=== PATIENT | female | born 1955 | race Hispanic/Latino ===

== ENCOUNTER 2020-12-17 20:05 | Inpatient (IN) | payer OTHER ==
[2020-12-17] MEDS ORDERED: BENZONATATE 100 MG CAP PO PRN (21:48)
[2020-12-17] MEDS: FAMOTIDINE 20 MG TAB PO SCH (21:48)
[2020-12-17] MEDS ORDERED: MORPHINE 2 MG/ML SYR IV PRN (21:48)
[2020-12-17] MEDS: INSULIN -REGULAR HUMAN 50 UNIT/0.5 ML ML SQ SCH (21:48)
[2020-12-17] MEDS ORDERED: ONDANSETRON 4 MG/2 ML VIAL IV PRN (21:48)
--- NOTE | 2020-12-17 23:01 | P.HP ---
Certification for Inpatient Patient admitted to: Inpatient With expected LOS: >2 Midnights Patient will require the following post-hospital care: None Practitioner: I am a practitioner with admitting privileges, knowledge of patient current condition, hospital course, and medical plan of care. Services: Services provided to patient in accordance with Admission requirements found in Title 42 Section 412.3 of the Code of Federal Regulations Patient History Date of Service: 12/17/20 Reason for admission: covid pneumonia History of Present Illness: Ms. Newberry is a 65 yo F with history of CVA and brain aneurysm who presents with one week of cough and SOB. She tested positive for COVID this week and presented to [facility] initially for worsening symptoms. There she was found to be hypoxic and requiring admission so she was transferred her .She reports cough, SOB, [place], vomiting, night sweats, pleuritic pain, sore throat and lost of taste and smell. She is currently on nasal cannula in no apparent distress. Allergies diazepam [From Valium] Allergy (Severe, Verified 12/17/20 21:48) see comment morphine Allergy (Severe, Verified 12/17/20 21:48) see commet Home Medications: Amitriptyline HCl 75 mg PO BEDTIME 12/17/20 Aspirin [Adult Low Dose Aspirin EC] 81 mg PO DAILY 12/17/20 Atorvastatin Calcium [Lipitor] 40 mg PO BEDTIME 12/17/20 Citalopram [Celexa] 20 mg PO DAILY 12/17/20 Furosemide [Lasix] 20 mg PO DAILY 12/17/20 Gabapentin 300 mg PO TID 12/17/20 Magnesium Oxide [Mag 0X Tab] 400 mg PO DAILY 12/17/20 Omeprazole [Prilosec] 40 mg PO DAILY 12/17/20 Verapamil HCl [Calan] 80 mg PO DAILY 12/17/20 - Past Medical/Surgical History -: CVA, brain aneurysm -: HLD -: hysterectomy -: cholecystectomy - Family History Mother -: Diabetes Father -: Cancer Brother -: Diabetes, Cancer - Social History Smoking Status: Never smoker Alcohol use: No CD- Drugs: No Caffeine use: Yes Place of Residence: Home Review of Systems 10-point ROS is otherwise unremarkable General: Sweats Respiratory: Cough, Shortness of Breath, SOB with Excertion, Pleuritic Pain Gastrointestinal: Vomiting Physical Examination - Physical Exam General: Alert, In no apparent distress HEENT: Atraumatic, PERRLA, Mucous membr. moist/pink, EOMI, Sclerae nonicteric Neck: Supple, 2+ carotid pulse no bruit, No LAD, Without JVD or thyroid abnormality Respiratory: Normal air movement, Expiratory wheezes, Rhonchi/gurgles Cardiovascular: Regular rate/rhythm, Normal S1 S2 Gastrointestinal: Normal bowel sounds, No tenderness Musculoskeletal: No tenderness Integumentary: No rashes Neurological: Normal gait, Normal speech, Normal strength at 5/5 x4 extr, Normal tone, Normal affect Lymphatics: No axilla or inguinal lymphadenopathy Assessment and Plan - Problems (Diagnosis) (1) Pneumonia due to COVID-19 virus Current Visit: Yes Status: Acute (2) History of CVA (cerebrovascular accident) Current Visit: Yes Status: Chronic - Plan pulm consulted, RT consulted continue IV steroids, covid supplements, ivermectin sats for home O2, room air sats daily daily CRP, ferritin, and procal reconcile and continue home medications DVT ppx Discharge Plan: Home Plan to discharge in: 72 Hours - Advance Directives Does patient have a Living Will: Yes Does patient have a Durable POA for Healthcare: Yes - Code Status/Comfort Care Code Status Assessed: Yes (full code ) Critical Care: No Time Spent Managing Pts Care (In Minutes): 70
[2020-12-17] MEDS: METHYLPREDNISOLONE 125 MG INJ IV SCH (23:49)
[2020-12-17] MEDS: ATORVASTATIN 40 MG TAB PO SCH (23:50)
[2020-12-17] MEDS: AMITRIPTYLINE 25 MG TAB PO SCH (23:50)
[2020-12-17] MEDS: MELATONIN 5 MG TABLET PO PRN (23:50)
[2020-12-17] MEDS: GABAPENTIN 300 MG CAP PO SCH (23:50)
[2020-12-17] MEDS: ASCORBIC ACID 500 MG TABLET PO SCH (23:50)
[2020-12-18 05:23] LABS: Absolute Lymphocytes (CBC) 0.6 K/uL (0.7-4.9); Basophils % 0.1 % (0-1.3); Hematocrit 35.2 % (36.0-45.0); Lymphocytes % 6.8 % (15.3-44.8); MPV 8.9 fL (7.6-11.3); RBC Red Blood Cell Count 4.15 M/uL (3.86-4.86)
[2020-12-18 05:49] LABS: Albumin 2.5 g/dL (3.4-5.0); Bilirubin Total 0.2 mg/dL (0.2-1.0); C-Reactive Protein 63.5 mg/L (<3.00); Ferritin 658.7 ng/mL (8-388); Potassium 3.4 mmol/L (3.5-5.1); Protein, Total 7.3 g/dL (6.4-8.2)
[2020-12-18] MEDS ORDERED: POTASSIUM CL SA 10 MEQ TAB PO ONE ×2 (07:20→18:32)
[2020-12-18] MEDS: INSULIN -REGULAR HUMAN 50 UNIT/0.5 ML ML SQ SCH ×4 (07:30→20:20)
[2020-12-18] MEDS: METHYLPREDNISOLONE 125 MG INJ IV SCH ×2 (08:18→20:15)
[2020-12-18] MEDS: GABAPENTIN 300 MG CAP PO SCH ×3 (08:18→20:15)
[2020-12-18] MEDS: FAMOTIDINE 20 MG TAB PO SCH ×2 (08:19→20:15)
[2020-12-18] MEDS: ASPIRIN EC 81 MG TAB PO SCH (08:19)
[2020-12-18] MEDS: VITAMIN D 1000 UNIT TAB PO SCH (08:19)
[2020-12-18] MEDS: ASCORBIC ACID 500 MG TABLET PO SCH ×4 (08:19→20:15)
[2020-12-18] MEDS: THIAMINE HCL 100 MG TABLET PO SCH (08:19)
[2020-12-18] MEDS: ZINC SULFATE 220 MG CAP PO SCH (08:19)
[2020-12-18] MEDS: IVERMECTIN 3 MG TABLET PO SCH (08:20)
[2020-12-18 08:41] LABS: Blood Morphology Comment NOT SEEN (NOT SEEN); Platelet Estimate ADEQ; White Blood Cell Scan OK (OK)
--- NOTE | 2020-12-18 10:14 | RAD REPORT ---
EXAM DESCRIPTION: RAD - Chest Single View - 12/18/2020 7:03 am CLINICAL HISTORY: covid pneumonia Chest pain. COMPARISON: No comparisons FINDINGS: Portable technique limits examination quality. Moderately severe bilateral airspace opacities are present, greater on the right, most compatible wit h underlying COVID-19 infection. The heart is normal in size. No displaced fractures.
--- NOTE | 2020-12-18 10:43 | P.PN ---
Subjective Date of Service: 12/18/20 Chief Complaint: covid pneumonia Subjective: No new changes Review of Systems 10-point ROS is otherwise unremarkable Respiratory: SOB with Excertion Physical Examination - Vital Signs Temperature: 97.5 F Blood Pressure: 123/58 Pulse: 85 Respirations: 20 Pulse Ox (%): 94 - Physical Exam General: Alert, In no apparent distress HEENT: Atraumatic, PERRLA, EOMI Neck: Supple, JVD not distended Respiratory: Diminished Cardiovascular: Regular rate/rhythm, Normal S1 S2 Gastrointestinal: Normal bowel sounds, No tenderness Musculoskeletal: No tenderness Integumentary: No rashes Neurological: Normal speech, Normal tone, Normal affect Lymphatics: No axilla or inguinal lymphadenopathy - Studies Laboratory Data (last 24 hrs) 12/18/20 04:48: Sodium 142, Potassium 3.4 L, BUN 13, Creatinine 0.68, Glucose 154 H, Phosphorus 3.0, Magnesium 2.0, Total Bilirubin 0.2, AST 63 H, ALT 41, Alkaline Phosphatase 122 H 12/18/20 04:48: WBC 9.10, Hgb 11.8 L, Hct 35.2 L, Plt Count 184 Medications List Reviewed: Yes Assessment & Plan - Problems (Diagnosis) (1) Pneumonia due to COVID-19 virus Current Visit: Yes Status: Acute Plan: continue steroids and ivermectin. As well as the rest of the protochol. Will try weaning her down off oxygen. (2) History of CVA (cerebrovascular accident) Current Visit: Yes Status: Chronic Plan: No residual problems at this time. the patient speaks well. Seems to be in her right mind Discharge Plan: Home Plan to discharge in: Greater than 2 days - Code Status/Comfort Care Code Status Assessed: No Critical Care: No Time Spent Managing Pts Care (In Minutes): 20
--- NOTE | 2020-12-18 11:35 | P.CNS ---
Date of Consult: 12/18/20 Reason for Consult: Coronavirus pneumonia Chief Complaint: covid pneumonia History of Present Illness: Patient is 65 years of age patient is 65 years of age with history of stroke and brain aneurysm presented with 1 week history of cough shortness of breath di agnosed with coronavirus pneumonia currently stable reports having some pulmonary complaints on high flow nasal cannula h Allergies diazepam [From Valium] Allergy (Severe, Verified 12/17/20 21:48) see comment morphine Allergy (Severe, Verified 12/17/20 21:48) see commet Home Medications: Amitriptyline HCl 75 mg PO BEDTIME 12/17/20 Aspirin [Adult Low Dose Aspirin EC] 81 mg PO DAILY 12/17/20 Atorvastatin Calcium [Lipitor] 40 mg PO BEDTIME 12/17/20 Citalopram [Celexa] 20 mg PO DAILY 12/17/20 Furosemide [Lasix] 20 mg PO DAILY 12/17/20 Gabapentin 300 mg PO TID 12/17/20 Magnesium Oxide [Mag 0X Tab] 400 mg PO DAILY 12/17/20 Omeprazole [Prilosec] 40 mg PO DAILY 12/17/20 Verapamil HCl [Calan] 80 mg PO DAILY 12/17/20 - Past Medical/Surgical History -: CVA, brain aneurysm -: HLD -: hysterectomy -: cholecystectomy - Family History Mother Medical History: Diabetes Father Medical History: Cancer Brother Medical History: Diabetes, Cancer - Social History Alcohol use: No CD- Drugs: No Caffeine use: Yes Place of Residence: Home Review of Systems General: Weakness Respiratory: Cough, Shortness of Breath Physical Examination Temp Pulse Resp BP Pulse Ox 97.5 F 85 20 123/58 L 94 12/18/20 10:43 12/18/20 10:43 12/18/20 10:43 12/18/20 10:43 12/18/20 10:43 General: Alert, Cooperative Laboratory Data (last 24 hrs) 12/18/20 04:48: Sodium 142, Potassium 3.4 L, BUN 13, Creatinine 0.68, Glucose 154 H, Phosphorus 3.0, Magnesium 2.0, Total Bilirubin 0.2, AST 63 H, ALT 41, Alkaline Phosphatase 122 H 12/18/20 04:48: WBC 9.10, Hgb 11.8 L, Hct 35.2 L, Plt Count 184 - Problems (1) Pneumonia due to COVID-19 virus Current Visit: Yes Status: Acute Plan: Patient is 65 years of age patient is 65 years of age admitted with coronavirus pneumonia currently on high flow currently on high flow nasal cannula oxygen recheck CRP again patient may qualify for Barcitinib CT scan shows bilateral groundglass changes
[2020-12-18] MEDS: RIVAROXABAN 10 MG TABLET PO SCH (17:28)
[2020-12-18] MEDS: ATORVASTATIN 40 MG TAB PO SCH (20:14)
[2020-12-18] MEDS: AMITRIPTYLINE 25 MG TAB PO SCH (20:15)
[2020-12-18] MEDS: ACETAMINOPHEN 500 MG TAB PO PRN (21:28)
[2020-12-18] MEDS: MELATONIN 5 MG TABLET PO PRN (22:19)
[2020-12-19 04:52] LABS: C-Reactive Protein 48.8 mg/L (<3.00); Potassium 3.7 mmol/L (3.5-5.1)
[2020-12-19] MEDS ORDERED: POTASSIUM CL SA 10 MEQ TAB PO ONE (06:52)
[2020-12-19] MEDS: INSULIN -REGULAR HUMAN 50 UNIT/0.5 ML ML SQ SCH ×4 (07:30→20:42)
[2020-12-19] MEDS: ZINC SULFATE 220 MG CAP PO SCH (08:34)
[2020-12-19] MEDS: FAMOTIDINE 20 MG TAB PO SCH ×2 (08:34→20:35)
[2020-12-19] MEDS: ASPIRIN EC 81 MG TAB PO SCH (08:34)
[2020-12-19] MEDS: METHYLPREDNISOLONE 125 MG INJ IV SCH ×2 (08:35→20:34)
[2020-12-19] MEDS: GABAPENTIN 300 MG CAP PO SCH ×3 (08:35→20:34)
[2020-12-19] MEDS: VITAMIN D 1000 UNIT TAB PO SCH (08:35)
[2020-12-19] MEDS: ASCORBIC ACID 500 MG TABLET PO SCH ×4 (08:35→20:34)
[2020-12-19] MEDS: THIAMINE HCL 100 MG TABLET PO SCH (08:35)
--- NOTE | 2020-12-19 10:01 | P.PN ---
Subjective Date of Service: 12/19/20 Chief Complaint: covid pneumonia Subjective: No new changes Review of Systems Respiratory: Shortness of Breath Physical Examination - Vital Signs Temperature: 97.6 F Blood Pressure: 129/66 Pulse: 84 Respirations: 20 Pulse Ox (%): 96 - Physical Exam General: Alert, In no apparent distress HEENT: Atraumatic, PERRLA, EOMI Neck: Supple, JVD not distended Respiratory: Clear to auscultation bilaterally, Normal air movement Cardiovascular: Regular rate/rhythm, Normal S1 S2 Gastrointestinal: Normal bowel sounds, No tenderness Musculoskeletal: No tenderness Integumentary: No rashes Neurological: Normal speech, Normal tone, Normal affect Lymphatics: No axilla or inguinal lymphadenopathy - Studies Laboratory Data (last 24 hrs) 12/19/20 13:00: Potassium Cancelled 12/19/20 09:00: Potassium Cancelled 12/19/20 03:54: Potassium 3.7 12/18/20 15:57: Potassium 3.7 Medications List Reviewed: Yes Assessment & Plan - Problems (Diagnosis) (1) Pneumonia due to COVID-19 virus Current Visit: Yes Status: Acute Plan: continue steroids and ivermectin. As well as the rest of the protochol. Will try weaning her down off oxygen. 12/19 Contineu (2) History of CVA (cerebrovascular accident) Current Visit: Yes Status: Chronic Plan: No residual problems at this time. the patient speaks well. Seems to be in her right mind Discharge Plan: Home Plan to discharge in: Greater than 2 days - Code Status/Comfort Care Code Status Assessed: No Physician Review: Patient Assessed, Agree with Above Assessment and Plan Critical Care: No Time Spent Managing Pts Care (In Minutes): 20
[2020-12-19] MEDS: RIVAROXABAN 10 MG TABLET PO SCH (17:24)
[2020-12-19] MEDS: ACETAMINOPHEN 500 MG TAB PO PRN (17:27)
[2020-12-19] MEDS: ATORVASTATIN 40 MG TAB PO SCH (20:34)
[2020-12-19] MEDS: AMITRIPTYLINE 25 MG TAB PO SCH (20:35)
[2020-12-20] MEDS ORDERED: ZOLPIDEM TARTRATE 5 MG TABLET PO ONE (00:12)
--- NOTE | 2020-12-20 06:22 | P.PN ---
Subjective Date of Service: 12/20/20 Chief Complaint: covid pneumonia Subjective: Other (Patient reports some improvement. Currently on high flow at 100%.) Physical Examination - Vital Signs Temperature: 96.7 F Blood Pressure: 121/59 Pulse: 83 Respirations: 20 Pulse Ox (%): 91 - Studies Laboratory Data (last 24 hrs) 12/19/20 15:28: Potassium 4.0 12/19/20 13:00: Potassium Cancelled 12/19/20 09:40: Potassium 3.8 12/19/20 09:00: Potassium Cancelled Medications List Reviewed: Yes Assessment & Plan Discharge Plan: Home Plan to discharge in: Greater than 2 days Physician Review Additional Text: COVID: positive CXR: COMPARISON: No comparisons FINDINGS: Portable technique limits examination quality. Moderately severe bilateral airspace opacities are present, greater on the right, most compatible with underlying COVID-19 infection. The heart is normal in size. No displaced fractures. Physical Exam: GENERAL: The patient is a well-developed, well-nourished, in no apparent distress. Alert and oriented x3. VITAL SIGNS: Reviewed HEENT: Head is normocephalic and atraumatic. Extraocular muscles are intact. Pupils are equal, round, and reactive to light and accommodation. Nares appeared normal. Mouth is well hydrated and without lesions. Mucous membranes are moist. NECK: Supple. No carotid bruits. No lymphadenopathy or thyromegaly. LUNGS: Clear to auscultation. No crackles or wheezes are heard. HEART: Regular rate and rhythm, no appreciable gallops, rubs, murmurs or extra heart sounds ABDOMEN: Soft, nontender, and nondistended. Positive bowel sounds. No hepatosplenomegaly was noted. EXTREMITIES: Without any cyanosis, clubbing, rash, lesions or peripheral edema. NEUROLOGIC: The patient is oriented to person, place and time. Strength and sensation are grossly intact. Face is symmetric. SKIN: Normal color, turgor and temperature. No ulcerations or rashes noted. Impression: Acute respiratory failure secondary to bilateral Covid pneumonia Hypertension Hyperlipidemia Depression with anxiety Chronic pain GERD Plan: Acute respiratory failure secondary to bilateral Covid pneumonia: Patient remains on high flow 100%. Continue to wean off to maintain sats above 90%. Continue IV steroids and supplementation. Recheck chest x-ray tomorrow. We will continue to monitor CRP and ferritin. Continue with recommendations by pul monology. Hypertension: Continue with verapamil 80 mg daily. Hyperlipidemia: Continue with Lipitor 40 mg daily. Depression with anxiety: Continue with Celexa 20 mg daily. Chronic pain: Continue with gabapentin 300 mg 3 times a day and Elavil 75 mg at bedtime. GERD: Continue with Pepcid Code Status: Full Code DVT prophylaxis: Lovenox Advanced Care Planning-30 minutes: Plan of care for the patient's discharge was discussed in detail with the patient and family. Time Spent Managing Pts Care (In Minutes): 55
[2020-12-20] MEDS: INSULIN -REGULAR HUMAN 50 UNIT/0.5 ML ML SQ SCH ×4 (07:30→21:00)
[2020-12-20 07:44] LABS: Absolute Lymphocytes (CBC) 0.7 K/uL (0.7-4.9); Basophils % 0.1 % (0-1.3); Hematocrit 35.2 % (36.0-45.0); MPV 8.4 fL (7.6-11.3); RBC Red Blood Cell Count 4.26 M/uL (3.86-4.86)
[2020-12-20] MEDS: METHYLPREDNISOLONE 125 MG INJ IV SCH ×2 (07:51→20:24)
[2020-12-20] MEDS: FAMOTIDINE 20 MG TAB PO SCH ×2 (07:52→20:24)
[2020-12-20] MEDS: GABAPENTIN 300 MG CAP PO SCH ×3 (07:52→20:24)
[2020-12-20] MEDS: ASPIRIN EC 81 MG TAB PO SCH (07:52)
[2020-12-20] MEDS: THIAMINE HCL 100 MG TABLET PO SCH (07:52)
[2020-12-20] MEDS: VITAMIN D 1000 UNIT TAB PO SCH (07:53)
[2020-12-20] MEDS: ASCORBIC ACID 500 MG TABLET PO SCH ×4 (07:53→20:24)
[2020-12-20] MEDS: ZINC SULFATE 220 MG CAP PO SCH (07:53)
[2020-12-20] MEDS: IVERMECTIN 3 MG TABLET PO SCH (07:54)
[2020-12-20 08:00] LABS: ALT/SGPT 47 U/L (12-78); AST/SGOT 88 U/L (15-37); Albumin 2.7 g/dL (3.4-5.0); Alkaline Phosphatase 151 U/L (45-117); BUN Blood Urea Nitrogen 18 mg/dL (7-18); Bicarbonate 22 mmol/L (21-32); Bilirubin Total 0.7 mg/dL (0.2-1.0); Ferritin 697.3 ng/mL (8-388); Glucose Level 155 mg/dL (74-106); Potassium 4.2 mmol/L (3.5-5.1); Protein, Total 7.3 g/dL (6.4-8.2); Sodium Level 139 mmol/L (136-145)
[2020-12-20 08:20] LABS: Blood Morphology Comment NOT SEEN (NOT SEEN); Platelet Estimate ADEQ; White Blood Cell Scan OK (OK)
--- NOTE | 2020-12-20 11:28 | P.PN ---
Subjective Date of Service: 12/20/20 Chief Complaint: covid pneumonia NC still on highCon of O2. feeling better Review of Systems General: Weakness Respiratory: Shortness of Breath Physical Examination - Vital Signs Temperature: 97.2 F Blood Pressure: 162/72 Pulse: 75 Respirations: 30 Pulse Ox (%): 93 - Physical Exam General: Alert, In no apparent distress, Oriented x3, Cooperative - Studies Laboratory Data (last 24 hrs) 12/20/20 07:19: Sodium 139, Potassium 4.2, BUN 18, Creatinine 0.58, Glucose 155 H, Total Bilirubin 0.7, AST 88 H, ALT 47, Alkaline Phosphatase 151 H 12/20/20 07:19: WBC 13.40 H D, Hgb 11.9 L, Hct 35.2 L, Plt Count 265 D 12/19/20 15:28: Potassium 4.0 Medications List Reviewed: Yes Assessment & Plan - Problems (Diagnosis) (1) Pneumonia due to COVID-19 virus Current Visit: Yes Status: Acute Plan: Resp failure on high conc o O2/ feeling better/ Did not qualify for Barcitinib Physician Review: Patient Assessed, Agree with Above Assessment and Plan
[2020-12-20] MEDS: ENOXAPARIN 40 MG/0.4 ML SQ SCH (16:07)
[2020-12-20] MEDS: ALPRAZOLAM 0.25 MG TABLET PO PRN (17:41)
[2020-12-20] MEDS: ACETAMINOPHEN 500 MG TAB PO PRN (19:30)
[2020-12-20] MEDS: AMITRIPTYLINE 25 MG TAB PO SCH (20:24)
[2020-12-20] MEDS: ATORVASTATIN 40 MG TAB PO SCH (20:24)
[2020-12-20] MEDS ORDERED: AMITRIPTYLINE HCL 75 MG PO SCH (21:00)
[2020-12-21 04:13] LABS: Absolute Lymphocytes (CBC) 0.7 K/uL (0.7-4.9); Basophils % 0.2 % (0-1.3); Hematocrit 35.1 % (36.0-45.0); Lymphocytes % 5.8 % (15.3-44.8); MPV 8.6 fL (7.6-11.3); RBC Red Blood Cell Count 4.23 M/uL (3.86-4.86)
[2020-12-21 04:54] LABS: ALT/SGPT 43 U/L (12-78); AST/SGOT 61 U/L (15-37); Albumin 2.6 g/dL (3.4-5.0); Alkaline Phosphatase 147 U/L (45-117); BUN Blood Urea Nitrogen 21 mg/dL (7-18); Bicarbonate 21 mmol/L (21-32); Ferritin 665.1 ng/mL (8-388); Glucose Level 186 mg/dL (74-106); Magnesium 2.5 mg/dL (1.8-2.4); Potassium 4.4 mmol/L (3.5-5.1); Protein, Total 7.1 g/dL (6.4-8.2); Sodium Level 138 mmol/L (136-145)
[2020-12-21] MEDS: ALPRAZOLAM 0.25 MG TABLET PO PRN (05:15)
--- NOTE | 2020-12-21 06:20 | P.PN ---
Subjective Date of Service: 12/21/20 Chief Complaint: covid pneumonia Subjective: Other (Overall stable. Patient on high flow 100%) Physical Examination - Vital Signs Temperature: 96.9 F Blood Pressure: 120/57 Pulse: 81 Respirations: 18 Pulse Ox (%): 93 - Studies Laboratory Data (last 24 hrs) 12/21/20 03:53: Sodium 138, Potassium 4.4, BUN 21 H, Creatinine 0.57, Glucose 186 H, Magnesium 2.5 H D, Total Bilirubin 1.0, AST 61 H, ALT 43, Alkaline Phosphatase 147 H 12/21/20 03:53: WBC 12.10 H, Hgb 11.8 L, Hct 35.1 L, Plt Count 294 12/20/20 07:19: Sodium 139, Potassium 4.2, BUN 18, Creatinine 0.58, Glucose 155 H, Total Bilirubin 0.7, AST 88 H, ALT 47, Alkaline Phosphatase 151 H 12/20/20 07:19: WBC 13.40 H D, Hgb 11.9 L, Hct 35.2 L, Plt Count 265 D Medications List Reviewed: Yes Assessment & Plan Discharge Plan: Home Plan to discharge in: Greater than 2 days Physician Review Additional Text: COVID: positive CXR: COMPARISON: No comparisons FINDINGS: Portable technique limits examination quality. Moderately severe bilateral airspace opacities are present, greater on the right, most compatible with underlying COVID-19 infection. The heart is normal in size. No displaced fractures. Follow up CXR 12/21/2020: COMPARISON: Portable December 18 TECHNIQUE: AP portable chest image was obtained 12/21/2020 5:59 am . FINDINGS: There has been moderate improvement in the bilateral pneumonia pattern seen on the prior examination. There is significant interstitial and airspace opacification remaining. Heart and vasculature are normal. No measurable pleural effusion and no pneumothorax. No acute bony abnormality seen. No acute aortic findings suspected. IMPRESSION: Moderate improvement in the bilateral pneumonia pattern since December 18 Physical Exam: GENERAL: The patient is a well-developed, well-nourished, in no apparent distress. Alert and oriented x3. VITAL SIGNS: Reviewed HEENT: Neck supple LUNGS: Clear to auscultation. No crackles or wheezes are heard. Currently on high flow 100% HEART: Regular rate and rhythm, no appreciable gallops, rubs, murmurs or extra heart sounds ABDOMEN: Soft, nontender, and nondistended. Positive bowel sounds. No hepatosplenomegaly was noted. EXTREMITIES: Without any cyanosis, clubbing, rash, lesions or peripheral edema. NEUROLOGIC: The patient is oriented to person, place and time. Strength and sensation are grossly intact. Face is symmetric. SKIN: Normal color, turgor and temperature. No ulcerations or rashes noted. Impression: Acute respiratory failure secondary to bilateral Covid pneumonia Hypertension Hyperlipidemia Depression with anxiety Chronic pain GERD Plan: Acute respiratory failure secondary to bilateral Covid pneumonia: Patient remains on high flow 100%. Continue to wean off to maintain sats above 90%. Continue IV steroids and supplementation. X-ray shows improvement. Continue to monitor CRP and ferritin. Continue with recommendations by pulmonology. Hypertension: Continue with verapamil 80 mg daily. Hyperlipidemia: Continue with Lipitor 40 mg daily. Depression with anxiety: Continue with Celexa 20 mg daily. Chronic pain: Continue with gabapentin 300 mg 3 times a day and Elavil 75 mg at bedtime. GERD: Continue with Pepcid Code Status: Full Code DVT prophylaxis: Lovenox Advanced Care Planning-30 minutes: Will discuss with patient about the possibility of LTAC in the near future if her condition slowly improves Time Spent Managing Pts Care (In Minutes): 55
--- NOTE | 2020-12-21 06:58 | RAD REPORT ---
EXAM DESCRIPTION: RAD - Chest Single View - 12/21/2020 5:59 am CLINICAL HISTORY: penumonia COMPARISON: Portable December 18 TECHNIQUE: AP portable chest image was obtained 12/21/2020 5:59 am . FINDINGS: There has been moderate improvement in the bilateral pneumonia pattern seen on the prior e xamination. There is significant interstitial and airspace opacification remaining. Heart and vascula ture are normal. No measurable pleural effusion and no pneumothorax. No acute bony abnormality seen. No acute aortic findings suspected. IMPRESSION: Moderate improvement in the bilateral pneumonia pattern since December 18
[2020-12-21] MEDS: INSULIN -REGULAR HUMAN 50 UNIT/0.5 ML ML SQ SCH ×4 (07:24→20:36)
[2020-12-21] MEDS: GABAPENTIN 300 MG CAP PO SCH ×3 (08:44→20:35)
[2020-12-21] MEDS: ZINC SULFATE 220 MG CAP PO SCH (08:44)
[2020-12-21] MEDS: THIAMINE HCL 100 MG TABLET PO SCH (08:44)
[2020-12-21] MEDS: ASCORBIC ACID 500 MG TABLET PO SCH ×4 (08:44→20:35)
[2020-12-21] MEDS: METHYLPREDNISOLONE 125 MG INJ IV SCH ×2 (08:44→20:35)
[2020-12-21] MEDS: CITALOPRAM 10 MG TABLET PO SCH (08:45)
[2020-12-21] MEDS: VITAMIN D 1000 UNIT TAB PO SCH (08:45)
[2020-12-21] MEDS: VERAPAMIL HCL 80 MG TABLET PO SCH (08:45)
[2020-12-21] MEDS: FAMOTIDINE 20 MG TAB PO SCH ×2 (08:45→20:35)
[2020-12-21] MEDS: ASPIRIN EC 81 MG TAB PO SCH (08:45)
[2020-12-21] MEDS: MAGNESIUM OXIDE 400 MG TAB PO SCH (08:47)
[2020-12-21] MEDS ORDERED: HOME MED 1 EA UNK (Omeprazole [Prilosec] 40 MG Capsule.Dr) PO SCH (09:00)
[2020-12-21] MEDS ORDERED: PANTOPRAZOLE 40MG TABLET PO SCH (09:00)
[2020-12-21] MEDS: ENOXAPARIN 40 MG/0.4 ML SQ SCH (16:24)
[2020-12-21] MEDS: AMITRIPTYLINE 25 MG TAB PO SCH (20:35)
[2020-12-21] MEDS: ATORVASTATIN 40 MG TAB PO SCH (20:35)
[2020-12-22 04:22] LABS: Absolute Lymphocytes (CBC) 0.7 K/uL (0.7-4.9); Basophils % 0.3 % (0-1.3); Hematocrit 34.5 % (36.0-45.0); Lymphocytes % 5.4 % (15.3-44.8); MPV 8.4 fL (7.6-11.3); RBC Red Blood Cell Count 4.14 M/uL (3.86-4.86)
[2020-12-22 04:42] LABS: ALT/SGPT 43 U/L (12-78); AST/SGOT 44 U/L (15-37); Albumin 2.6 g/dL (3.4-5.0); Alkaline Phosphatase 142 U/L (45-117); BUN Blood Urea Nitrogen 21 mg/dL (7-18); Bicarbonate 21 mmol/L (21-32); Bilirubin Total 0.8 mg/dL (0.2-1.0); Ferritin 714.6 ng/mL (8-388); Glucose Level 185 mg/dL (74-106); Magnesium 2.4 mg/dL (1.8-2.4); Potassium 4.7 mmol/L (3.5-5.1); Sodium Level 137 mmol/L (136-145)
--- NOTE | 2020-12-22 06:14 | P.PN ---
Subjective Date of Service: 12/22/20 Chief Complaint: covid pneumonia Subjective: Doing well, Other (Patient remains on high flow at 100%) Physical Examination - Vital Signs Temperature: 96.1 F Blood Pressure: 95/51 Pulse: 76 Respirations: 18 Pulse Ox (%): 85 - Studies Laboratory Data (last 24 hrs) 12/22/20 03:58: Sodium 137, Potassium 4.7, BUN 21 H, Creatinine 0.60, Glucose 185 H, Magnesium 2.4, Total Bilirubin 0.8, AST 44 H, ALT 43, Alkaline Phosphatase 142 H 12/22/20 03:58: WBC 13.40 H, Hgb 11.7 L, Hct 34.5 L, Plt Count 359 D Medications List Reviewed: Yes Assessment & Plan Discharge Plan: LTAC Plan to discharge in: Greater than 2 days Physician Review Additional Text: COVID: positive CXR: COMPARISON: No comparisons FINDINGS: Portable technique limits examination quality. Moderately severe bilateral airspace opacities are present, greater on the right, most compatible with underlying COVID-19 infection. The heart is normal in size. No displaced fractures. Follow up CXR 12/21/2020: COMPARISON: Portable December 18 TECHNIQUE: AP portable chest image was obtained 12/21/2020 5:59 am . FINDINGS: There has been moderate improvement in the bilateral pneumonia pattern seen on the prior examination. There is significant interstitial and airspace opacification remaining. Heart and vasculature are normal. No measurable pleural effusion and no pneumothorax. No acute bony abnormality seen. No acute aortic findings suspected. IMPRESSION: Moderate improvement in the bilateral pneumonia pattern since December 18 Physical Exam: GENERAL: The patient is a well-developed, well-nourished, in no apparent distress. Alert and oriented x3. VITAL SIGNS: Reviewed HEENT: Neck supple LUNGS: Clear to auscultation. No crackles or wheezes are heard. Currently on high flow 100% HEART: Regular rate and rhythm, no appreciable gallops, rubs, murmurs or extra heart sounds ABDOMEN: Soft, nontender, and nondistended. Positive bowel sounds. No hepatosplenomegaly was noted. EXTREMITIES: Without any cyanosis, clubbing, rash, lesions or peripheral edema. NEUROLOGIC: The patient is oriented to person, place and time. Strength and sensation are grossly intact. Face is symmetric. SKIN: Normal color, turgor and temperature. No ulcerations or rashes noted. Impression: Acute respiratory failure secondary to bilateral Covid pneumonia Hypertension Hyperlipidemia Depression with anxiety Chronic pain GERD Plan: Acute respiratory failure secondary to bilateral Covid pneumonia: Patient remained stable on high flow. Patient remains on high flow 100%. Continue to wean off to maintain sats above 90%. Continue IV steroids and supplementation. X-ray shows improvement. Continue to monitor CRP and ferritin. Continue with recommendations by pulmonology. Hypertension: Blood pressures have been low. Will hold verapamil at this time. May need to restart if blood pressure remains elevated. Hyperlipidemia: Continue with Lipitor 40 mg daily. Depression with anxiety: Continue with Celexa 20 mg daily and Xanax as needed. Chronic pain: Continue with gabapentin 300 mg 3 times a day and Elavil 75 mg at bedtime. GERD: Continue with Protonix Code Status: Full Code DVT prophylaxis: Lovenox Advanced Care Planning-30 minutes: Spoke at length with patient about the possibility of transferring to long-term acute facility to continue care. Patient in agreement. Will discuss with social work job titles to help arrange for this. Time Spent Managing Pts Care (In Minutes): 55
[2020-12-22] MEDS: INSULIN -REGULAR HUMAN 50 UNIT/0.5 ML ML SQ SCH ×4 (07:30→20:16)
[2020-12-22] MEDS: ASPIRIN EC 81 MG TAB PO SCH (08:56)
[2020-12-22] MEDS: FAMOTIDINE 20 MG TAB PO SCH (08:56)
[2020-12-22] MEDS: VITAMIN D 1000 UNIT TAB PO SCH (08:56)
[2020-12-22] MEDS: METHYLPREDNISOLONE 125 MG INJ IV SCH ×2 (08:57→20:14)
[2020-12-22] MEDS: ASCORBIC ACID 500 MG TABLET PO SCH (08:57)
[2020-12-22] MEDS: GABAPENTIN 300 MG CAP PO SCH ×3 (08:57→20:14)
[2020-12-22] MEDS: THIAMINE HCL 100 MG TABLET PO SCH (08:57)
[2020-12-22] MEDS: ZINC SULFATE 220 MG CAP PO SCH (08:57)
[2020-12-22] MEDS: CITALOPRAM 10 MG TABLET PO SCH (08:57)
[2020-12-22] MEDS: MAGNESIUM OXIDE 400 MG TAB PO SCH (08:58)
[2020-12-22] MEDS: VERAPAMIL HCL 80 MG TABLET PO SCH (09:00)
[2020-12-22] MEDS: PANTOPRAZOLE 40MG TABLET PO SCH (10:43)
--- NOTE | 2020-12-22 11:46 | P.PN ---
Subjective Date of Service: 12/22/20 Chief Complaint: covid pneumonia NC on high conc of Fio2 Review of Systems Respiratory: Shortness of Breath Physical Examination - Vital Signs Temperature: 97.6 F Blood Pressure: 102/68 Pulse: 80 Respirations: 26 Pulse Ox (%): 93 - Physical Exam General: Alert, Oriented x3, Cooperative - Studies Laboratory Data (last 24 hrs) 12/22/20 03:58: Sodium 137, Potassium 4.7, BUN 21 H, Creatinine 0.60, Glucose 185 H, Magnesium 2.4, Total Bilirubin 0.8, AST 44 H, ALT 43, Alkaline Phosphatase 142 H 12/22/20 03:58: WBC 13.40 H, Hgb 11.7 L, Hct 34.5 L, Plt Count 359 D Medications List Reviewed: Yes Assessment & Plan - Problems (Diagnosis) (1) Pneumonia due to COVID-19 virus Current Visit: Yes Status: Acute Plan: Resp failure CXRY improvement. Willnot qualify for Barctinib/ Labs and meds reviewed Physician Review: Patient Assessed, Agree with Above Assessment and Plan
[2020-12-22] MEDS: ENOXAPARIN 40 MG/0.4 ML SQ SCH (17:00)
[2020-12-22] MEDS ORDERED: RIVAROXABAN 20 MG TABLET PO SCH (17:00)
[2020-12-22] MEDS: AMITRIPTYLINE 25 MG TAB PO SCH (20:14)
[2020-12-22] MEDS: ATORVASTATIN 40 MG TAB PO SCH (20:14)
[2020-12-22] MEDS: MELATONIN 5 MG TABLET PO PRN (20:14)
[2020-12-23] MEDS: ALPRAZOLAM 0.25 MG TABLET PO PRN (00:06)
[2020-12-23 05:18] LABS: Absolute Lymphocytes (CBC) 0.8 K/uL (0.7-4.9); Basophils % 0.2 % (0-1.3); Hematocrit 35.2 % (36.0-45.0); MPV 8.2 fL (7.6-11.3)
[2020-12-23 05:44] LABS: ALT/SGPT 37 U/L (12-78); AST/SGOT 40 U/L (15-37); Albumin 2.6 g/dL (3.4-5.0); Alkaline Phosphatase 142 U/L (45-117); BUN Blood Urea Nitrogen 24 mg/dL (7-18); Bicarbonate 21 mmol/L (21-32); Bilirubin Total 0.7 mg/dL (0.2-1.0); Ferritin 776.6 ng/mL (8-388); Glucose Level 181 mg/dL (74-106); Magnesium 2.5 mg/dL (1.8-2.4); Potassium 4.6 mmol/L (3.5-5.1); Protein, Total 7.1 g/dL (6.4-8.2); Sodium Level 136 mmol/L (136-145)
--- NOTE | 2020-12-23 06:09 | P.PN ---
Subjective Date of Service: 12/23/20 Chief Complaint: covid pneumonia Subjective: Other (Patient required BiPAP overnight.) Physical Examination - Vital Signs Temperature: 96.4 F Blood Pressure: 113/59 Pulse: 76 Respirations: 24 Pulse Ox (%): 92 - Studies Laboratory Data (last 24 hrs) 12/23/20 04:44: Sodium 136, Potassium 4.6, BUN 24 H, Creatinine 0.58, Glucose 181 H, Magnesium 2.5 H, Total Bilirubin 0.7, AST 40 H, ALT 37, Alkaline Phosphatase 142 H 12/23/20 04:44: WBC 16.50 H D, Hgb 11.9 L, Hct 35.2 L, Plt Count 413 H Medications List Reviewed: Yes Assessment & Plan Discharge Plan: LTAC Plan to discharge in: Greater than 2 days Physician Review Additional Text: COVID: positive CXR: COMPARISON: No comparisons FINDINGS: Portable technique limits examination quality. Moderately severe bilateral airspace opacities are present, greater on the right, most compatible with underlying COVID-19 infection. The heart is normal in size. No displaced fractures. Follow up CXR 12/21/2020: COMPARISON: Portable December 18 TECHNIQUE: AP portable chest image was obtained 12/21/2020 5:59 am . FINDINGS: There has been moderate improvement in the bilateral pneumonia pattern seen on the prior examination. There is significant interstitial and airspace opacification remaining. Heart and vasculature are normal. No measurable pleural effusion and no pneumothorax. No acute bony abnormality seen. No acute aortic findings suspected. IMPRESSION: Moderate improvement in the bilateral pneumonia pattern since December 18 Physical Exam: GENERAL: The patient is a well-developed, well-nourished, in no apparent distress. Alert and oriented x3. VITAL SIGNS: Reviewed HEENT: Neck supple LUNGS: Patient on BiPAP HEART: Regular rate and rhythm, no appreciable gallops, rubs, murmurs or extra heart sounds ABDOMEN: Soft, nontender, and nondistended. Positive bowel sounds. No hepatosplenomegaly was noted. EXTREMITIES: Without any cyanosis, clubbing, rash, lesions or peripheral edema. NEUROLOGIC: The patient is oriented to person, place and time. Strength and sensation are grossly intact. Face is symmetric. SKIN: Normal color, turgor and temperature. No ulcerations or rashes noted. Impression: Acute respiratory failure secondary to bilateral Covid pneumonia Hypertension Hyperlipidemia Depression with anxiety Chronic pain GERD Plan: Acute respiratory failure secondary to bilateral Covid pneumonia: Patient required BiPAP overnight. Continue to wean off oxygen Continue IV steroids and supplementation. Will recheck chest x-ray tomorrow. Continue to monitor CRP and ferritin. Continue with recommendations by pulmonology. Leukocytosis noted. Will start Rocephin and Diflucan due to risk of opportunistic infection. Hypertension: Blood pressures have been low. Verapamil has been discontinued. May need to restart if blood pressure remains elevated. Hyperlipidemia: Continue with Lipitor 40 mg daily. Depression with anxiety: Continue with Celexa 20 mg daily and Xanax as needed. Chronic pain: Continue with gabapentin 300 mg 3 times a day and Elavil 75 mg at bedtime. GERD: Continue with Protonix Code Status: Full Code DVT prophylaxis: Lovenox Advanced Care Planning-30 minutes: Continue to pursue LTAC Time Spent Managing Pts Care (In Minutes): 55
[2020-12-23] MEDS: PANTOPRAZOLE 40MG TABLET PO SCH (06:20)
[2020-12-23] MEDS: INSULIN -REGULAR HUMAN 50 UNIT/0.5 ML ML SQ SCH ×4 (07:30→21:00)
[2020-12-23] MEDS: METHYLPREDNISOLONE 125 MG INJ IV SCH ×2 (08:16→21:04)
[2020-12-23] MEDS: GABAPENTIN 300 MG CAP PO SCH ×3 (08:16→21:04)
[2020-12-23] MEDS: CITALOPRAM 10 MG TABLET PO SCH (08:16)
[2020-12-23] MEDS: VITAMIN D 1000 UNIT TAB PO SCH (08:16)
[2020-12-23] MEDS: THIAMINE HCL 100 MG TABLET PO SCH (08:16)
[2020-12-23] MEDS: ASPIRIN EC 81 MG TAB PO SCH (08:16)
[2020-12-23] MEDS: MAGNESIUM OXIDE 400 MG TAB PO SCH (08:17)
[2020-12-23] MEDS: CEFTRIAXONE 1 GM/NS 50 ML 1 GM/50 ML BAG IV SCH (15:33)
[2020-12-23] MEDS: FLUCONAZOLE 100 MG TAB PO SCH (15:33)
[2020-12-23] MEDS: ENOXAPARIN 40 MG/0.4 ML SQ SCH (17:21)
[2020-12-23] MEDS: ATORVASTATIN 40 MG TAB PO SCH (21:05)
[2020-12-23] MEDS: AMITRIPTYLINE 25 MG TAB PO SCH (21:05)
[2020-12-23] MEDS: ACETAMINOPHEN 500 MG TAB PO PRN (21:06)
[2020-12-24] MEDS: PANTOPRAZOLE 40MG TABLET PO SCH (05:50)
[2020-12-24 06:21] LABS: Absolute Lymphocytes (CBC) 0.5 K/uL (0.7-4.9); Hematocrit 33.7 % (36.0-45.0); Lymphocytes % 3.7 % (15.3-44.8); MPV 8.4 fL (7.6-11.3); RBC Red Blood Cell Count 4.02 M/uL (3.86-4.86)
--- NOTE | 2020-12-24 06:30 | P.PN ---
Subjective Date of Service: 12/24/20 Chief Complaint: covid pneumonia Subjective: Other (Patient stable on high flow at 100%) Physical Examination - Vital Signs Temperature: 98.2 F Blood Pressure: 107/58 Pulse: 86 Respirations: 19 Pulse Ox (%): 95 - Studies Laboratory Data (last 24 hrs) 12/24/20 05:58: WBC 14.70 H, Hgb 11.4 L, Hct 33.7 L, Plt Count 464 H Medications List Reviewed: Yes Assessment & Plan Discharge Plan: LTAC Plan to discharge in: Greater than 2 days Physician Review Additional Text: COVID: positive CXR: COMPARISON: No comparisons FINDINGS: Portable technique limits examination quality. Moderately severe bilateral airspace opacities are present, greater on the right, most compatible with underlying COVID-19 infection. The heart is normal in size. No displaced fractures. Follow up CXR 12/21/2020: COMPARISON: Portable December 18 TECHNIQUE: AP portable chest image was obtained 12/21/2020 5:59 am . FINDINGS: There has been moderate improvement in the bilateral pneumonia pattern seen on the prior examination. There is significant interstitial and airspace opacification remaining. Heart and vasculature are normal. No measurable pleural effusion and no pneumothorax. No acute bony abnormality seen. No acute aortic findings suspected. IMPRESSION: Moderate improvement in the bilateral pneumonia pattern since December 18 Physical Exam: GENERAL: The patient is a well-developed, well-nourished, in no apparent distress. Alert and oriented x3. VITAL SIGNS: Reviewed HEENT: Neck supple LUNGS: Patient on high flow at 100% with nonrebreather HEART: Regular rate and rhythm, no appreciable gallops, rubs, murmurs or extra heart sounds ABDOMEN: Soft, nontender, and nondistended. Positive bowel sounds. No hepatosplenomegaly was noted. EXTREMITIES: Without any cyanosis, clubbing, rash, lesions or peripheral edema. NEUROLOGIC: The patient is oriented to person, place and time. Strength and sensation are grossly intact. Face is symmetric. SKIN: Normal color, turgor and temperature. No ulcerations or rashes noted. Impression: Acute respiratory failure secondary to bilateral Covid pneumonia Hypertension Hyperlipidemia Depression with anxiety Chronic pain GERD Plan: Acute respiratory failure secondary to bilateral Covid pneumonia: Patient now on high flow at high percent with nonrebreather. Pulmonology recommends baricitinib. This to be started. Continue IV steroids and supplementation. Continue Rocephin and Diflucan due to leukocytosis. Will monitor closely. Will monitor CRP and ferritin. Will monitor liver function tests on baricitinib. Continue to wean off oxygen. Pulmonology change Lovenox to Xarelto. Hypertension: Blood pressure stable. Verapamil has been discontinued. Hyperlipidemia: Continue with Lipitor 40 mg daily. Depression with anxiety: Continue with Celexa 20 mg daily and Xanax as needed. Chronic pain: Continue with gabapentin 300 mg 3 times a day and Elavil 75 mg at bedtime. GERD: Continue with Protonix Code Status: Full Code DVT prophylaxis: Xarelto Advanced Care Planning-30 minutes: Continue to pursue LTAC Time Spent Managing Pts Care (In Minutes): 55
[2020-12-24 06:55] LABS: ALT/SGPT 29 U/L (12-78); AST/SGOT 28 U/L (15-37); Albumin 2.5 g/dL (3.4-5.0); Alkaline Phosphatase 130 U/L (45-117); BUN Blood Urea Nitrogen 23 mg/dL (7-18); Bicarbonate 23 mmol/L (21-32); Bilirubin Total 0.6 mg/dL (0.2-1.0); Ferritin 791.8 ng/mL (8-388); Glucose Level 191 mg/dL (74-106); Magnesium 2.6 mg/dL (1.8-2.4); Potassium 4.9 mmol/L (3.5-5.1); Protein, Total 7.3 g/dL (6.4-8.2); Sodium Level 137 mmol/L (136-145)
--- NOTE | 2020-12-24 07:17 | RAD REPORT ---
EXAM DESCRIPTION: RAD - Chest Single View - 12/24/2020 6:41 am CLINICAL HISTORY: Follow-up Covid COMPARISON: Chest Single View dated 12/21/2020; Chest Single View dated 12/18/2020 FINDINGS: Lines: None. Lungs: Widespread bilateral airspace disease with areas of consolidation at the left lung that appear s marginally worsened compared with 12/21/2020 though this may be more technique related. Pleural: No significant pleural effusions or pneumothorax. Cardiac: The heart size is within normal limits. Bones: No acute fractures. Other: IMPRESSION: Widespread airspace disease with similar to marginally worsened aeration of the left cornelia g base. Overall, the findings have improved since the original chest radiograph from 12/18/2020 .
[2020-12-24] MEDS: INSULIN -REGULAR HUMAN 50 UNIT/0.5 ML ML SQ SCH ×4 (07:30→20:41)
[2020-12-24 08:07] LABS: Blood Morphology Comment NOT SEEN (NOT SEEN); Platelet Estimate INCR
[2020-12-24] MEDS: MAGNESIUM OXIDE 400 MG TAB PO SCH (09:00)
[2020-12-24] MEDS: VITAMIN D 1000 UNIT TAB PO SCH (09:41)
[2020-12-24] MEDS: THIAMINE HCL 100 MG TABLET PO SCH (09:41)
[2020-12-24] MEDS: ASPIRIN EC 81 MG TAB PO SCH (09:41)
[2020-12-24] MEDS: CITALOPRAM 10 MG TABLET PO SCH (09:41)
[2020-12-24] MEDS: FLUCONAZOLE 100 MG TAB PO SCH (09:42)
[2020-12-24] MEDS: GABAPENTIN 300 MG CAP PO SCH ×3 (09:42→20:40)
[2020-12-24] MEDS: METHYLPREDNISOLONE 125 MG INJ IV SCH ×2 (09:42→20:41)
[2020-12-24] MEDS: CEFTRIAXONE 1 GM/NS 50 ML 1 GM/50 ML BAG IV SCH (09:43)
[2020-12-24] MEDS: ALPRAZOLAM 0.25 MG TABLET PO PRN (12:02)
[2020-12-24] MEDS ORDERED: FUROSEMIDE 20 MG/ 2ML VIAL IV ONE (13:21)
--- NOTE | 2020-12-24 13:22 | P.PN ---
Subjective Date of Service: 12/24/20 Chief Complaint: covid pneumonia NC still very hypoxic CXRY NC Review of Systems General: Weakness Respiratory: Shortness of Breath Physical Examination - Vital Signs Temperature: 97.9 F Blood Pressure: 117/58 Pulse: 93 Respirations: 20 Pulse Ox (%): 95 - Physical Exam General: Alert, Oriented x3, Moderate distress - Studies Laboratory Data (last 24 hrs) 12/24/20 05:58: Sodium 137, Potassium 4.9, BUN 23 H, Creatinine 0.55, Glucose 191 H, Magnesium 2.6 H, Total Bilirubin 0.6, AST 28, ALT 29, Alkaline Phosphatase 130 H 12/24/20 05:58: WBC 14.70 H, Hgb 11.4 L, Hct 33.7 L, Plt Count 464 H Medications List Reviewed: Yes Assessment & Plan - Problems (Diagnosis) (1) Pneumonia due to COVID-19 virus Current Visit: Yes Status: Acute Plan: Resp failure from Severe COVID penumonia. NC very hypoxic/ CRP now 110 , CXRY NC, Start on Barcitinib/ Full anticoagualtion Physician Review: Patient Assessed, Agree with Above Assessment and Plan
[2020-12-24] MEDS: BARICITINIB 2 MG TABLET PO SCH (14:12)
[2020-12-24] MEDS: RIVAROXABAN 10 MG TABLET PO SCH (17:32)
[2020-12-24] MEDS: MELATONIN 5 MG TABLET PO PRN (20:40)
[2020-12-24] MEDS: AMITRIPTYLINE 25 MG TAB PO SCH (20:40)
[2020-12-24] MEDS: ATORVASTATIN 40 MG TAB PO SCH (20:40)
[2020-12-25] MEDS: ALPRAZOLAM 0.25 MG TABLET PO PRN (00:02)
[2020-12-25] MEDS: PANTOPRAZOLE 40MG TABLET PO SCH (06:04)
--- NOTE | 2020-12-25 06:12 | P.PN ---
Subjective Date of Service: 12/25/20 Chief Complaint: covid pneumonia Subjective: Other (Patient overall stable. Patient in better spirits today. Currently on BiPAP) Physical Examination - Vital Signs Temperature: 97.8 F Blood Pressure: 128/57 Pulse: 62 Respirations: 16 Pulse Ox (%): 97 - Studies Laboratory Data (last 24 hrs) 12/24/20 05:58: Sodium 137, Potassium 4.9, BUN 23 H, Creatinine 0.55, Glucose 191 H, Magnesium 2.6 H, Total Bilirubin 0.6, AST 28, ALT 29, Alkaline Phosphatase 130 H 12/24/20 05:58: WBC 14.70 H, Hgb 11.4 L, Hct 33.7 L, Plt Count 464 H Medications List Reviewed: Yes Assessment & Plan Discharge Plan: LTAC Plan to discharge in: Greater than 2 days Physician Review Additional Text: COVID: positive CXR: COMPARISON: No comparisons FINDINGS: Portable technique limits examination quality. Moderately severe bilateral airspace opacities are present, greater on the right , most compatible with underlying COVID-19 infection. The heart is normal in size. No displaced fractures. Follow up CXR 12/24/2020: COMPARISON: Chest Single View dated 12/21/2020; Chest Single View dated 12/18/2020 FINDINGS: Lines: None. Lungs: Widespread bilateral airspace disease with areas of consolidation at the left lung that appears marginally worsened compared with 12/21/2020 though this may be more technique related. Pleural: No significant pleural effusions or pneumothorax. Cardiac: The heart size is within normal limits. Bones: No acute fractures. IMPRESSION: Widespread airspace disease with similar to marginally worsened aeration of the left lung base. Overall, the findings have improved since the original chest radiograph from 12/18/2020 . Physical Exam: GENERAL: Patient in better spirits. Patient does not appear labored. VITAL SIGNS: Reviewed HEENT: Neck supple LUNGS: Currently on BiPAP at 90%. HEART: Regular rate and rhythm, no appreciable gallops, rubs, murmurs or extra heart sounds ABDOMEN: Soft, nontender, and nondistended. Positive bowel sounds. No hepatosplenomegaly was noted. EXTREMITIES: Without any cyanosis, clubbing, rash, lesions or peripheral edema. NEUROLOGIC: The patient is oriented to person, place and time. Strength and sensation are grossly intact. Face is symmetric. SKIN: Normal color, turgor and temperature. No ulcerations or rashes noted. Impression: Acute respiratory failure secondary to bilateral Covid pneumonia Hypertension Hyperlipidemia Depression with anxiety Chronic pain GERD Plan: Acute respiratory failure secondary to bilateral Covid pneumonia: Patient remains stable at this time. Currently on BiPAP at 100%. Patient continues with IV steroid and baricitinib. Continue to monitor CRP and ferritin. CRP improved since yesterday. Continue Rocephin and Diflucan as well. Encourage incentive spirometer. Continue to wean off to maintain sats above 90%. Continue with pulmonology recommendations. Hypertension: Blood pressure stable. Verapamil has been discontinued. Hyperlipidemia: Continue with Lipitor 40 mg daily. Depression with anxiety: Continue with Celexa 20 mg daily and Xanax as needed. Chronic pain: Continue with gabapentin 300 mg 3 times a day and Elavil 75 mg at bedtime. GERD: Continue with Protonix Code Status: Full Code DVT prophylaxis: Xarelto Advanced Care Planning-30 minutes: Continue to pursue LTAC. Plan of care discussed with son. Time Spent Managing Pts Care (In Minutes): 55
[2020-12-25] MEDS: INSULIN -REGULAR HUMAN 50 UNIT/0.5 ML ML SQ SCH ×4 (07:30→20:29)
[2020-12-25 07:46] LABS: Absolute Lymphocytes (CBC) 0.8 K/uL (0.7-4.9); Hematocrit 34.1 % (36.0-45.0); Lymphocytes % 5.5 % (15.3-44.8); RBC Red Blood Cell Count 4.05 M/uL (3.86-4.86)
[2020-12-25 08:06] LABS: ALT/SGPT 27 U/L (12-78); AST/SGOT 25 U/L (15-37); Albumin 2.5 g/dL (3.4-5.0); Alkaline Phosphatase 126 U/L (45-117); BUN Blood Urea Nitrogen 28 mg/dL (7-18); Bicarbonate 27 mmol/L (21-32); Bilirubin Total 0.4 mg/dL (0.2-1.0); Glucose Level 166 mg/dL (74-106); Magnesium 2.7 mg/dL (1.8-2.4); Potassium 4.7 mmol/L (3.5-5.1); Protein, Total 7.5 g/dL (6.4-8.2); Sodium Level 138 mmol/L (136-145)
[2020-12-25] MEDS: CEFTRIAXONE 1 GM/NS 50 ML 1 GM/50 ML BAG IV SCH (08:07)
[2020-12-25] MEDS: METHYLPREDNISOLONE 125 MG INJ IV SCH ×2 (08:08→20:24)
[2020-12-25] MEDS: VITAMIN D 1000 UNIT TAB PO SCH (08:09)
[2020-12-25] MEDS: CITALOPRAM 10 MG TABLET PO SCH (08:09)
[2020-12-25] MEDS: THIAMINE HCL 100 MG TABLET PO SCH (08:10)
[2020-12-25] MEDS: ASPIRIN EC 81 MG TAB PO SCH (08:10)
[2020-12-25] MEDS: MAGNESIUM OXIDE 400 MG TAB PO SCH (09:00)
[2020-12-25] MEDS: BARICITINIB 2 MG TABLET PO SCH (09:00)
[2020-12-25] MEDS: GABAPENTIN 300 MG CAP PO SCH ×3 (09:00→20:23)
[2020-12-25] MEDS: FLUCONAZOLE 100 MG TAB PO SCH (09:00)
[2020-12-25] MEDS: RIVAROXABAN 10 MG TABLET PO SCH (17:06)
[2020-12-25] MEDS: ATORVASTATIN 40 MG TAB PO SCH (20:23)
[2020-12-25] MEDS: AMITRIPTYLINE 25 MG TAB PO SCH (20:24)
[2020-12-26] MEDS: PANTOPRAZOLE 40MG TABLET PO SCH (06:11)
--- NOTE | 2020-12-26 06:19 | P.PN ---
Subjective Date of Service: 12/26/20 Chief Complaint: covid pneumonia Subjective: Other (Overall stable on high flow at 100%. Patient in better spirit) Physical Examination - Vital Signs Temperature: 97.1 F Blood Pressure: 124/59 Pulse: 84 Respirations: 17 Pulse Ox (%): 87 - Studies Laboratory Data (last 24 hrs) 12/25/20 07:34: Sodium 138, Potassium 4.7, BUN 28 H, Creatinine 0.58, Glucose 166 H, Magnesium 2.7 H, Total Bilirubin 0.4, AST 25, ALT 27, Alkaline Phosphatase 126 H 12/25/20 07:34: WBC 13.70 H, Hgb 11.3 L, Hct 34.1 L, Plt Count 510 H Medications List Reviewed: Yes Assessment & Plan Discharge Plan: LTAC Plan to discharge in: Greater than 2 days Physician Review Additional Text: COVID: positive CXR: COMPARISON: No comparisons FINDINGS: Portable technique limits examination quality. Moderately severe bilateral airspace opacities are present, greater on the right, most compatible with underlying COVID-19 infection. The heart is normal in size. No displaced fractures. Follow up CXR 12/24/2020: COMPARISON: Chest Single View dated 12/21/2020; Chest Single View dated 12/18/2020 FINDINGS: Lines: None. Lungs: Widespread bilateral airspace disease with areas of consolidation at the left lung that appears marginally worsened compared with 12/21/2020 though this may be more technique related. Pleural: No significant pleural effusions or pneumothorax. Cardiac: The heart size is within normal limits. Bones: No acute fractures. IMPRESSION: Widespread airspace disease with similar to marginally worsened aeration of the left lung base. Overall, the findings have improved since the original chest radiograph from 12/18/2020 . Physical Exam: GENERAL: Patient in better spirits. Patient does not appear labored. VITAL SIGNS: Reviewed HEENT: Neck supple LUNGS: Currently on BiPAP at 100%. HEART: Regular rate and rhythm, no appreciable gallops, rubs, murmurs or extra heart sounds ABDOMEN: Soft, nontender, and nondistended. Positive bowel sounds. No hepatosplenomegaly was noted. EXTREMITIES: Without any cyanosis, clubbing, rash, lesions or peripheral edema. NEUROLOGIC: The patient is oriented to person, place and time. Strength and sensation are grossly intact. Face is symmetric. SKIN: Normal color, turgor and temperature. No ulcerations or rashes noted. Impression: Acute respiratory failure secondary to bilateral Covid pneumonia Hypertension Hyperlipidemia Depression with anxiety Chronic pain GERD Plan: Acute respiratory failure secondary to bilateral Covid pneumonia: Patient remained stable. Currently on high flow at 100%. Intermittent with BiPAP. Continue IV steroid and baricitinib. Continue to monitor CRP and ferritin. Family has been visiting to help with her spirit. Continue Ceftin and Diflucan. Lasix given today by pulmonology. Encourage incentive spirometer. Continue to wean off to maintain sats above 90%. Continue with pulmonology recommendations. Awaiting approval for LTAC. I will turn the service over to the hospitalist team tomorrow. I will go plan of care with him. Hypertension: Blood pressure stable. Verapamil has been discontinued. If blood pressure is elevated may need to restart verapamil Hyperlipidemia: Continue with Lipitor 40 mg daily. Depression with anxiety: Continue with Celexa 20 mg daily and Xanax as needed. Chronic pain: Continue with gabapentin 300 mg 3 times a day and Elavil 75 mg at bedtime. GERD: Continue with Protonix Code Status: Full Code DVT prophylaxis: Xarelto Advanced Care Planning-30 minutes: Continue to pursue LTAC. Plan of care discussed with son. Time Spent Managing Pts Care (In Minutes): 55
[2020-12-26 06:25] LABS: Absolute Lymphocytes (CBC) 0.7 K/uL (0.7-4.9); Basophils % 0.1 % (0-1.3); Hematocrit 32.7 % (36.0-45.0); Lymphocytes % 4.2 % (15.3-44.8); MPV 8.5 fL (7.6-11.3); RBC Red Blood Cell Count 3.91 M/uL (3.86-4.86)
[2020-12-26 07:03] LABS: ALT/SGPT 28 U/L (12-78); AST/SGOT 22 U/L (15-37); Albumin 2.4 g/dL (3.4-5.0); Alkaline Phosphatase 119 U/L (45-117); BUN Blood Urea Nitrogen 28 mg/dL (7-18); Bicarbonate 22 mmol/L (21-32); Bilirubin Total 0.3 mg/dL (0.2-1.0); Ferritin 967.8 ng/mL (8-388); Glucose Level 167 mg/dL (74-106); Magnesium 2.5 mg/dL (1.8-2.4); Potassium 4.4 mmol/L (3.5-5.1); Protein, Total 7.3 g/dL (6.4-8.2); Sodium Level 138 mmol/L (136-145)
[2020-12-26] MEDS: INSULIN -REGULAR HUMAN 50 UNIT/0.5 ML ML SQ SCH ×4 (07:30→20:34)
[2020-12-26] MEDS: GABAPENTIN 300 MG CAP PO SCH ×3 (08:02→20:32)
[2020-12-26] MEDS: MAGNESIUM OXIDE 400 MG TAB PO SCH (08:02)
[2020-12-26] MEDS: ASPIRIN EC 81 MG TAB PO SCH (08:02)
[2020-12-26] MEDS: CITALOPRAM 10 MG TABLET PO SCH (08:02)
[2020-12-26] MEDS: BARICITINIB 2 MG TABLET PO SCH (08:02)
[2020-12-26] MEDS: VITAMIN D 1000 UNIT TAB PO SCH (08:02)
[2020-12-26] MEDS: THIAMINE HCL 100 MG TABLET PO SCH (08:02)
[2020-12-26] MEDS: CEFTRIAXONE 1 GM/NS 50 ML 1 GM/50 ML BAG IV SCH (08:03)
[2020-12-26] MEDS: METHYLPREDNISOLONE 125 MG INJ IV SCH ×2 (08:03→20:33)
[2020-12-26] MEDS: FLUCONAZOLE 100 MG TAB PO SCH (08:04)
--- NOTE | 2020-12-26 08:29 | RAD REPORT ---
EXAM DESCRIPTION: RAD - Chest Single View - 12/26/2020 6:44 am CLINICAL HISTORY: follow up COVID COMPARISON: Chest Single View dated 12/24/2020; Chest Single View dated 12/21/2020; Chest Single View dated 12/18/2020 FINDINGS: Lines: None. Lungs: Similar to the modestly worsened bilateral interstitial and airspace disease. Pleural: No significant pleural effusions or pneumothorax. Cardiac: The heart size is within normal limits. Bones: No acute fractures. Other: IMPRESSION: Similar to marginally worsened bilateral interstitial and airspace disease concerning fo r multifocal pneumonia.
--- NOTE | 2020-12-26 11:42 | P.PN ---
Subjective Date of Service: 12/26/20 Chief Complaint: covid pneumonia No change patient continues to remain very hypoxic Review of Systems General: Weakness Respiratory: Shortness of Breath Physical Examination - Vital Signs Temperature: 97.1 F Blood Pressure: 124/59 Pulse: 84 Respirations: 17 Pulse Ox (%): 87 - Physical Exam General: Alert, Cooperative, Moderate distress - Studies Laboratory Data (last 24 hrs) 12/26/20 05:33: Sodium 138, Potassium 4.4, BUN 28 H, Creatinine 0.59, Glucose 167 H, Magnesium 2.5 H, Total Bilirubin 0.3, AST 22, ALT 28, Alkaline Phosphatase 119 H 12/26/20 05:33: WBC 17.60 H D, Hgb 11.1 L, Hct 32.7 L, Plt Count 552 H Medications List Reviewed: Yes Assessment & Plan - Problems (Diagnosis) (1) Pneumonia due to COVID-19 virus Current Visit: Yes Status: Acute Plan: Respiratory failure requiring high concentrations of oxygen advised patient to use BiPAP and counseled on prone position ventilation change to p.o. antibiotics reduce dose of IV Solu-Medrol she is also on Barcitinib prognosis poor blood pressure stable add Lasix chest x-ray still shows severe Covid pneumonia Physician Review: Patient Assessed, Agree with Above Assessment and Plan
[2020-12-26] MEDS: RIVAROXABAN 10 MG TABLET PO SCH (16:29)
[2020-12-26] MEDS: FUROSEMIDE 20 MG/ 2ML VIAL IV SCH (16:29)
[2020-12-26] MEDS: AMITRIPTYLINE 25 MG TAB PO SCH (20:31)
[2020-12-26] MEDS: ATORVASTATIN 40 MG TAB PO SCH (20:32)
[2020-12-26] MEDS: CEFUROXIME 250 MG TAB PO SCH (23:21)
[2020-12-27] MEDS: INSULIN -REGULAR HUMAN 50 UNIT/0.5 ML ML SQ SCH ×4 (07:30→20:29)
--- NOTE | 2020-12-27 07:44 | RAD REPORT ---
EXAM DESCRIPTION: [place] Single View12/27/2020 5:26 am CLINICAL HISTORY: Shortness of breath COMPARISON: December 26 FINDINGS: Mild improvement in the diffuse bilateral pulmonary opacities. The heart is normal size IMPRESSION: Mild improvement in the diffuse bilateral pulmonary opacities probably pneumonia
[2020-12-27] MEDS ORDERED: INFLUENZA VACCINE (for 6+ mo) 0.5 ML DOSE IMVAC ONE (08:00)
[2020-12-27] MEDS: VITAMIN D 1000 UNIT TAB PO SCH (08:33)
[2020-12-27] MEDS: METHYLPREDNISOLONE 125 MG INJ IV SCH ×2 (08:33→20:31)
[2020-12-27] MEDS: ASPIRIN EC 81 MG TAB PO SCH (08:33)
[2020-12-27] MEDS: GABAPENTIN 300 MG CAP PO SCH ×3 (08:33→20:30)
[2020-12-27] MEDS: THIAMINE HCL 100 MG TABLET PO SCH (08:34)
[2020-12-27] MEDS: FLUCONAZOLE 100 MG TAB PO SCH (08:36)
[2020-12-27] MEDS: BARICITINIB 2 MG TABLET PO SCH (08:37)
[2020-12-27] MEDS: CEFUROXIME 250 MG TAB PO SCH ×2 (08:37→20:48)
[2020-12-27] MEDS: MAGNESIUM OXIDE 400 MG TAB PO SCH (08:42)
[2020-12-27] MEDS: FUROSEMIDE 20 MG/ 2ML VIAL IV SCH (08:42)
[2020-12-27] MEDS: CITALOPRAM 10 MG TABLET PO SCH (08:43)
[2020-12-27] MEDS: PANTOPRAZOLE 40MG TABLET PO SCH (08:45)
[2020-12-27] MEDS: RIVAROXABAN 10 MG TABLET PO SCH (15:52)
--- NOTE | 2020-12-27 16:23 | P.PN ---
Subjective Date of Service: 12/27/20 Subjective: No new changes, No C/O voiced, Ambulating, Improving Review of Systems 10-point ROS is otherwise unremarkable Physical Examination - Vital Signs Temperature: 97.2 F Blood Pressure: 122/91 Pulse: 106 Respirations: 20 Pulse Ox (%): 88 - Physical Exam General: Alert, In no apparent distress, Oriented x3 Respiratory: Clear to auscultation bilaterally, Normal air movement Cardiovascular: Regular rate/rhythm, Normal S1 S2 Gastrointestinal: Normal bowel sounds, No tenderness Musculoskeletal: No tenderness Integumentary: No rashes Neurological: Normal speech, Normal tone, Normal affect Lymphatics: No axilla or inguinal lymphadenopathy - Studies Medications List Reviewed: Yes Assessment & Plan - Problems (Diagnosis) (1) Pneumonia due to COVID-19 virus Current Visit: Yes Status: Acute - Plan 1. Continue with IV steroids 2. Monitor inflammatory markers 3. Repeat chest x-ray if symptoms are improving 4. O2 per protocol 5. Pulmonary consultation 6. Continue with albuterol inhaler therapy; also supportive care 7. Monitor LFTs 8. GI and DVT prophylaxis Discharge Plan: Home Plan to discharge in: Greater than 2 days - Advance Directives Does patient have a Living Will: Yes Does patient have a Durable POA for Healthcare: Yes Physician Review: Patient Assessed, Agree with Above Assessment and Plan
[2020-12-27] MEDS: AMITRIPTYLINE 25 MG TAB PO SCH (20:29)
[2020-12-27] MEDS: ATORVASTATIN 40 MG TAB PO SCH (20:30)
[2020-12-28] MEDS: PANTOPRAZOLE 40MG TABLET PO SCH (05:39)
[2020-12-28] MEDS: INSULIN -REGULAR HUMAN 50 UNIT/0.5 ML ML SQ SCH ×4 (07:30→20:25)
[2020-12-28] MEDS: CEFUROXIME 250 MG TAB PO SCH ×2 (09:00→20:24)
[2020-12-28] MEDS: FLUCONAZOLE 100 MG TAB PO SCH (09:00)
[2020-12-28] MEDS: BARICITINIB 2 MG TABLET PO SCH (09:00)
[2020-12-28] MEDS: MAGNESIUM OXIDE 400 MG TAB PO SCH (09:00)
[2020-12-28] MEDS: FUROSEMIDE 20 MG/ 2ML VIAL IV SCH (09:00)
[2020-12-28] MEDS: GABAPENTIN 300 MG CAP PO SCH ×3 (09:01→20:25)
[2020-12-28] MEDS: METHYLPREDNISOLONE 125 MG INJ IV SCH ×2 (09:01→20:24)
[2020-12-28] MEDS: CITALOPRAM 10 MG TABLET PO SCH (09:01)
[2020-12-28] MEDS: THIAMINE HCL 100 MG TABLET PO SCH (09:01)
[2020-12-28] MEDS: ASPIRIN EC 81 MG TAB PO SCH (09:01)
[2020-12-28] MEDS: VITAMIN D 1000 UNIT TAB PO SCH (09:01)
--- NOTE | 2020-12-28 11:53 | P.PN ---
Subjective Date of Service: 12/28/20 Chief Complaint: covid pneumonia No change still hypoxic desat on minimal exertion Review of Systems Respiratory: Shortness of Breath Physical Examination - Vital Signs Temperature: 97 F Blood Pressure: 132/64 Pulse: 94 Respirations: 18 Pulse Ox (%): 92 - Physical Exam General: Alert, Oriented x3, Moderate distress - Studies Medications List Reviewed: Yes Assessment & Plan - Problems (Diagnosis) (1) Pneumonia due to COVID-19 virus Current Visit: Yes Status: Acute Plan: Resp failure on max therapy NC/ prog poor Physician Review: Patient Assessed, Agree with Above Assessment and Plan
[2020-12-28] MEDS: RIVAROXABAN 20 MG TABLET PO SCH (17:00)
[2020-12-28] MEDS: ATORVASTATIN 40 MG TAB PO SCH (20:25)
[2020-12-28] MEDS: AMITRIPTYLINE 25 MG TAB PO SCH (20:38)
[2020-12-29] MEDS: PANTOPRAZOLE 40MG TABLET PO SCH (06:10)
[2020-12-29] MEDS: INSULIN -REGULAR HUMAN 50 UNIT/0.5 ML ML SQ SCH ×4 (07:30→20:07)
[2020-12-29] MEDS: MAGNESIUM OXIDE 400 MG TAB PO SCH (09:00)
[2020-12-29] MEDS: CEFUROXIME 250 MG TAB PO SCH ×2 (09:33→20:06)
[2020-12-29] MEDS: BARICITINIB 2 MG TABLET PO SCH (09:33)
[2020-12-29] MEDS: METHYLPREDNISOLONE 125 MG INJ IV SCH (09:34)
[2020-12-29] MEDS: VITAMIN D 1000 UNIT TAB PO SCH (09:34)
[2020-12-29] MEDS: FLUCONAZOLE 100 MG TAB PO SCH (09:34)
[2020-12-29] MEDS: FUROSEMIDE 20 MG/ 2ML VIAL IV SCH (09:35)
[2020-12-29] MEDS: ASPIRIN EC 81 MG TAB PO SCH (09:35)
[2020-12-29] MEDS: THIAMINE HCL 100 MG TABLET PO SCH (09:35)
[2020-12-29] MEDS: GABAPENTIN 300 MG CAP PO SCH ×3 (09:36→20:07)
[2020-12-29] MEDS: CITALOPRAM 10 MG TABLET PO SCH (09:36)
--- NOTE | 2020-12-29 13:16 | P.PN ---
Date of Service: 12/28/20 Subjective Patient is feeling okay. No new complaints. Remains on AIRVO as well as a non- rebreather. Patient does not want to be intubated. She does feel well however Review of Systems 10-point ROS is otherwise unremarkable Physical Examination - Vital Signs Reviewed - Physical Exam General: Alert, In no apparent distress, Oriented x3 Respiratory: Clear to auscultation bilaterally, Normal air movement Cardiovascular: Regular rate/rhythm, Normal S1 S2 Gastrointestinal: Normal bowel sounds, No tenderness Neurological: Normal speech, Normal tone, Normal affect Assessment & Plan - Problems (Diagnosis) (1) Pneumonia due to COVID-19 virus Current Visit: Yes Status: Acute - Plan Continue with plan of care as mentioned below: 1. Continue with IV steroids; may need to increase dosage-mentation is appropriate 2. Continue monitoring inflammatory markers as needed 3. May check a repeat chest x-ray 4. O2 per protocol 5. Pulmonary consultation 6. Continue with albuterol inhaler therapy; also supportive care 7. Monitor labs 8. GI and DVT prophylaxis Discharge Plan: Home Plan to discharge in: Greater than 2 days - Advance Directives Does patient have a Living Will: Yes Does patient have a Durable POA for Healthcare: Yes Physician Review: Patient Assessed, Agree with Above Assessment and Plan
[2020-12-29] MEDS: RIVAROXABAN 20 MG TABLET PO SCH (16:53)
[2020-12-29] MEDS: METHYLPREDNISOLONE 40 MG INJ IV SCH ×2 (16:53→20:06)
[2020-12-29] MEDS: AMITRIPTYLINE 25 MG TAB PO SCH (20:07)
[2020-12-29] MEDS: ATORVASTATIN 40 MG TAB PO SCH (21:00)
[2020-12-30] MEDS: PANTOPRAZOLE 40MG TABLET PO SCH (05:54)
[2020-12-30] MEDS: INSULIN -REGULAR HUMAN 50 UNIT/0.5 ML ML SQ SCH ×4 (07:30→20:10)
--- NOTE | 2020-12-30 07:52 | P.PN ---
Date of Service: 12/30/20 Subjective No changes in clinical status. Family still visiting at bedside. Patient states she feels better but there is no significant changes. Review of Systems 10-point ROS is otherwise unremarkable Physical Examination - Vital Signs Reviewed - Physical Exam General: Alert, In no apparent distress, Oriented x3 Respiratory: Tachypneic and diminished but otherwise clear Cardiovascular: Regular rate/rhythm, Normal S1 S2 Gastrointestinal: Normal bowel sounds, No tenderness Neurological: Normal speech, Normal tone, Normal affect Assessment & Plan - Problems (Diagnosis) (1) Pneumonia due to COVID-19 virus Current Visit: Yes Status: Acute - Plan Continue with plan of care as mentioned below: 1. Continue to try to wean down oxygenation and continue with IV steroids 2. Monitor inflammatory markers 3. Repeat chest x-ray 4. O2 per protocol-BiPAP at night & on high-flow in the daytime 5. Pulmonary consultation appreciated 6. Albuterol therapy 7. Monitor labs 8. GI and DVT prophylaxis
--- NOTE | 2020-12-30 07:52 | P.PN ---
Date of Service: 12/29/20 Subjective Patient still remains hypoxic. She does look more short of breath although she states she feels better. Continue with current plan of care at this time. Review of Systems 10-point ROS is otherwise unremarkable Physical Examination - Vital Signs Reviewed - Physical Exam General: Alert, In no apparent distress, Oriented x3 Respiratory: Tachypneic and diminished but otherwise clear Cardiovascular: Regular rate/rhythm, Normal S1 S2 Gastrointestinal: Normal bowel sounds, No tenderness Neurological: Normal speech, Normal tone, Normal affect Assessment & Plan - Problems (Diagnosis) (1) Pneumonia due to COVID-19 virus Current Visit: Yes Status: Acute - Plan Continue with plan of care as mentioned below: 1. Monitor neurologic status closely and continue with IV steroids; will try to wean down oxygenation 2. Continue monitoring inflammatory markers q48h 3. Repeat chest x-ray 4. O2 per protocol 5. Pulmonary consultation appreciated 6. Continue with albuterol inhaler therapy-may start nebulizer treatment 7. Monitor labs 8. GI and DVT prophylaxis Discharge Plan: Home Plan to discharge in: Greater than 2 days - Advance Directives Does patient have a Living Will: Yes Does patient have a Durable POA for Healthcare: Yes Physician Review: Patient Assessed, Agree with Above Assessment and Plan
[2020-12-30] MEDS ORDERED: PNEUMOCOCCAL VACCINE 0.5 ML IMVAC ONE (09:00)
[2020-12-30] MEDS: MAGNESIUM OXIDE 400 MG TAB PO SCH (09:00)
[2020-12-30 09:01] LABS: Hematocrit 36.2 % (36.0-45.0); MPV 8.6 fL (7.6-11.3); RBC Red Blood Cell Count 4.32 M/uL (3.86-4.86)
[2020-12-30] MEDS: VITAMIN D 1000 UNIT TAB PO SCH (09:01)
[2020-12-30] MEDS: CITALOPRAM 10 MG TABLET PO SCH (09:02)
[2020-12-30] MEDS: FLUCONAZOLE 100 MG TAB PO SCH (09:02)
[2020-12-30] MEDS: ASPIRIN EC 81 MG TAB PO SCH (09:02)
[2020-12-30] MEDS: METHYLPREDNISOLONE 40 MG INJ IV SCH ×2 (09:04→20:17)
[2020-12-30] MEDS: BARICITINIB 2 MG TABLET PO SCH (09:05)
[2020-12-30] MEDS: FUROSEMIDE 20 MG/ 2ML VIAL IV SCH (09:05)
[2020-12-30] MEDS: CEFUROXIME 250 MG TAB PO SCH ×2 (09:05→20:09)
[2020-12-30] MEDS: GABAPENTIN 300 MG CAP PO SCH ×3 (09:06→20:09)
[2020-12-30] MEDS: THIAMINE HCL 100 MG TABLET PO SCH (09:06)
[2020-12-30 09:20] LABS: Potassium 4.3 mmol/L (3.5-5.1)
--- NOTE | 2020-12-30 12:28 | P.PN ---
Subjective Date of Service: 12/30/20 Chief Complaint: covid pneumonia No change in oxygen requirement still very hypoxic Review of Systems General: Weakness Respiratory: Shortness of Breath Physical Examination - Vital Signs Temperature: 98 F Blood Pressure: 105/57 Pulse: 88 Respirations: 20 Pulse Ox (%): 86 - Physical Exam General: Alert, Cooperative, Moderate distress - Studies Laboratory Data (last 24 hrs) 12/30/20 08:45: Sodium 139, Potassium 4.3, BUN 31 H, Creatinine 0.68, Glucose 161 H 12/30/20 08:45: WBC 19.70 H, Hgb 12.1, Hct 36.2, Plt Count 493 H Medications List Reviewed: Yes Assessment & Plan - Problems (Diagnosis) (1) Pneumonia due to COVID-19 virus Current Visit: Yes Status: Acute Plan: Respiratory failure still on 100% FiO2 reduced dose of Solu-Medrol chest x-ray ordered maximal therapy Physician Review: Patient Assessed, Agree with Above Assessment and Plan
--- NOTE | 2020-12-30 14:55 | RAD REPORT ---
EXAM DESCRIPTION: RAD - Chest Single View - 12/30/2020 2:34 pm CLINICAL HISTORY: pneumonia COMPARISON: December 27 TECHNIQUE: AP portable chest image was obtained 12/30/2020 2:34 pm . FINDINGS: Bilateral interstitial and alveolar infiltrates are present not substantially different fr om comparison. There is no evidence for improvement and findings may be fractionally worse on the rig ht. Differential is minimal. Heart and vasculature are normal. No measurable pleural effusion and no pneumothorax. No acute bony abnormality seen. No acute aortic findings suspected. IMPRESSION: Bilateral pneumonia pattern not substantially different from December 27. No further impro vement noted.
[2020-12-30] MEDS: RIVAROXABAN 20 MG TABLET PO SCH (16:03)
[2020-12-30] MEDS: AMITRIPTYLINE 25 MG TAB PO SCH (20:10)
[2020-12-30] MEDS: ATORVASTATIN 40 MG TAB PO SCH (20:10)
[2020-12-31] MEDS: PANTOPRAZOLE 40MG TABLET PO SCH (06:24)
[2020-12-31] MEDS: INSULIN -REGULAR HUMAN 50 UNIT/0.5 ML ML SQ SCH ×4 (07:30→20:37)
[2020-12-31] MEDS: FUROSEMIDE 20 MG/ 2ML VIAL IV SCH (08:34)
[2020-12-31] MEDS: BARICITINIB 2 MG TABLET PO SCH (08:34)
[2020-12-31] MEDS: METHYLPREDNISOLONE 40 MG INJ IV SCH (08:34)
[2020-12-31] MEDS: MAGNESIUM OXIDE 400 MG TAB PO SCH (08:34)
[2020-12-31] MEDS: CEFUROXIME 250 MG TAB PO SCH ×2 (08:34→20:19)
[2020-12-31] MEDS: VITAMIN D 1000 UNIT TAB PO SCH (08:35)
[2020-12-31] MEDS: FLUCONAZOLE 100 MG TAB PO SCH (08:35)
[2020-12-31] MEDS: THIAMINE HCL 100 MG TABLET PO SCH (08:35)
[2020-12-31] MEDS: GABAPENTIN 300 MG CAP PO SCH ×3 (08:35→20:21)
[2020-12-31] MEDS: ASPIRIN EC 81 MG TAB PO SCH (08:35)
[2020-12-31] MEDS: CITALOPRAM 10 MG TABLET PO SCH (08:35)
--- NOTE | 2020-12-31 09:05 | RAD REPORT ---
EXAM DESCRIPTION: RAD - Chest Single View - 12/31/2020 6:33 am CLINICAL HISTORY: pneumonia Chest pain. COMPARISON: Chest Single View dated 12/30/2020; Chest Single View dated 12/27/2020; Chest Single View dated 12/26/2020; Chest Single View dated 12/24/2020 FINDINGS: Portable technique limits examination quality. Bilateral pulmonary opacities are again noted, appearing mildly improved on the right since yesterday 's study. The heart is upper limit of normal in size. No displaced fractures. IMPRESSION: Mild improvement in bilateral lung aeration is seen particularly on the right since yest erday's study.
--- NOTE | 2020-12-31 12:41 | P.PN ---
Subjective Date of Service: 12/31/20 Chief Complaint: covid pneumonia Condition stable still continues to remain very hypoxic Review of Systems General: Weakness Respiratory: Shortness of Breath Physical Examination - Vital Signs Temperature: 96.7 F Blood Pressure: 111/54 Pulse: 90 Respirations: 26 Pulse Ox (%): 94 - Physical Exam General: Alert, Oriented x3, Moderate distress - Studies Medications List Reviewed: Yes Assessment & Plan - Problems (Diagnosis) (1) Pneumonia due to COVID-19 virus Current Visit: Yes Status: Acute Plan: Respiratory failure condition stable possible improvement on the chest x-ray changed to p.o. Decadron p.o. Lasix Physician Review: Patient Assessed, Agree with Above Assessment and Plan
[2020-12-31] MEDS: RIVAROXABAN 20 MG TABLET PO SCH (16:41)
[2020-12-31] MEDS: dexAMETHasone 4 MG TAB PO SCH (20:20)
[2020-12-31] MEDS: AMITRIPTYLINE 25 MG TAB PO SCH (20:20)
[2020-12-31] MEDS: ENSURE ENLIVE 237 ML CAN PO SCH (20:21)
[2020-12-31] MEDS: ATORVASTATIN 40 MG TAB PO SCH (20:21)
[2020-12-31] MEDS: ACETAMINOPHEN 500 MG TAB PO PRN (20:22)
[2021-01-01] MEDS: PANTOPRAZOLE 40MG TABLET PO SCH (06:11)
[2021-01-01] MEDS: INSULIN -REGULAR HUMAN 50 UNIT/0.5 ML ML SQ SCH ×4 (07:30→20:12)
[2021-01-01] MEDS: CEFUROXIME 250 MG TAB PO SCH ×2 (08:09→20:06)
[2021-01-01] MEDS: BARICITINIB 2 MG TABLET PO SCH (08:09)
[2021-01-01] MEDS: VITAMIN D 1000 UNIT TAB PO SCH (08:10)
[2021-01-01] MEDS: FLUCONAZOLE 100 MG TAB PO SCH (08:10)
[2021-01-01] MEDS: ASPIRIN EC 81 MG TAB PO SCH (08:10)
[2021-01-01] MEDS: CITALOPRAM 10 MG TABLET PO SCH (08:10)
[2021-01-01] MEDS: THIAMINE HCL 100 MG TABLET PO SCH (08:11)
[2021-01-01] MEDS: dexAMETHasone 4 MG TAB PO SCH ×2 (08:11→20:06)
[2021-01-01] MEDS: MAGNESIUM OXIDE 400 MG TAB PO SCH (08:11)
[2021-01-01] MEDS: FUROSEMIDE 20 MG TABLET PO SCH (08:11)
[2021-01-01] MEDS: GABAPENTIN 300 MG CAP PO SCH ×3 (08:11→20:06)
[2021-01-01] MEDS: ENSURE ENLIVE 237 ML CAN PO SCH ×3 (08:11→20:16)
[2021-01-01] MEDS: RIVAROXABAN 20 MG TABLET PO SCH (17:53)
[2021-01-01] MEDS: ATORVASTATIN 40 MG TAB PO SCH (20:06)
[2021-01-01] MEDS: MELATONIN 5 MG TABLET PO PRN (20:06)
[2021-01-01] MEDS: AMITRIPTYLINE 25 MG TAB PO SCH (20:11)
[2021-01-02] MEDS: PANTOPRAZOLE 40MG TABLET PO SCH (05:17)
[2021-01-02] MEDS: INSULIN -REGULAR HUMAN 50 UNIT/0.5 ML ML SQ SCH ×4 (07:05→19:40)
[2021-01-02] MEDS: CEFUROXIME 250 MG TAB PO SCH ×2 (08:13→19:38)
[2021-01-02] MEDS: BARICITINIB 2 MG TABLET PO SCH (08:13)
[2021-01-02] MEDS: VITAMIN D 1000 UNIT TAB PO SCH (08:14)
[2021-01-02] MEDS: dexAMETHasone 4 MG TAB PO SCH ×2 (08:14→19:39)
[2021-01-02] MEDS: CITALOPRAM 10 MG TABLET PO SCH (08:14)
[2021-01-02] MEDS: GABAPENTIN 300 MG CAP PO SCH ×3 (08:14→19:39)
[2021-01-02] MEDS: ASPIRIN EC 81 MG TAB PO SCH (08:14)
[2021-01-02] MEDS: THIAMINE HCL 100 MG TABLET PO SCH (08:14)
[2021-01-02] MEDS: MAGNESIUM OXIDE 400 MG TAB PO SCH (08:14)
[2021-01-02] MEDS: ENSURE ENLIVE 237 ML CAN PO SCH ×2 (08:15→19:40)
[2021-01-02] MEDS: FLUCONAZOLE 100 MG TAB PO SCH (08:15)
[2021-01-02] MEDS: FUROSEMIDE 20 MG TABLET PO SCH (08:15)
--- NOTE | 2021-01-02 10:40 | P.PN ---
Subjective Date of Service: 01/02/21 Chief Complaint: Respiratory failure from coronavirus No change in patient's condition Kayleigh continues to remain very hypoxic desaturation on mild exertion maximum therapy Review of Systems General: Weakness Respiratory: Shortness of Breath Physical Examination - Vital Signs Temperature: 96.4 F Blood Pressure: 115/57 Pulse: 81 Respirations: 20 Pulse Ox (%): 96 - Physical Exam General: Moderate distress - Studies Medications List Reviewed: Yes Assessment & Plan - Problems (Diagnosis) (1) Pneumonia due to COVID-19 virus Current Visit: Yes Status: Acute Plan: Respiratory failure no change in oxygenation prognosis poor no change in present therapy Physician Review: Patient Assessed, Agree with Above Assessment and Plan
[2021-01-02] MEDS: RIVAROXABAN 20 MG TABLET PO SCH (16:43)
[2021-01-02] MEDS: AMITRIPTYLINE 25 MG TAB PO SCH (19:38)
[2021-01-02] MEDS: MELATONIN 5 MG TABLET PO PRN (19:39)
[2021-01-02] MEDS: ATORVASTATIN 40 MG TAB PO SCH (19:39)
--- NOTE | 2021-01-03 01:07 | P.PN ---
Date of Service: 12/31/20 Subjective Patient is doing okay. Patient is alternating on BiPAP at night and high-flow/non-rebreather during the daytime. He is continuing to get out of bed and sit up & eat. 1 family member visiting daily Review of Systems 10-point ROS is otherwise unremarkable Physical Examination - Vital Signs Reviewed - Physical Exam General: Alert, In no apparent distress, Oriented x3 Respiratory: No changes Cardiovascular: Regular rate/rhythm, Normal S1 S2 Gastrointestinal: Normal bowel sounds, No tenderness Neurological: Normal speech, Normal tone, Normal affect Assessment & Plan - Problems (Diagnosis) (1) Pneumonia due to COVID-19 virus Current Visit: Yes Status: Acute - Plan Continue with plan of care as mentioned below: 1. Continue IV steroids and attempt to try to wean oxygen down 2. Monitor labs 3. Chest x-ray is needed 4. O2 per protocol 5. Pulmonary consultation appreciated 6. Continue with albuterol inhaler therapy-may start nebulizer treatment 7. Patient was denied LTAC placement 8. GI and DVT prophylaxis Discharge Plan: Home Plan to discharge in: Greater than 2 days - Advance Directives Does patient have a Living Will: Yes Does patient have a Durable POA for Healthcare: Yes Physician Review: Patient Assessed, Agree with Above Assessment and Plan
--- NOTE | 2021-01-03 01:12 | P.PN ---
Date of Service: 01/01/21 Subjective Patient clinical symptoms continued to remain stable. Oxygen requirements are stable. Review of Systems 10-point ROS is otherwise unremarkable Physical Examination - Vital Signs Reviewed - Physical Exam General: Alert, In no apparent distress, Oriented x3 Respiratory: Tachypneic and diminished but otherwise clear Cardiovascular: Regular rate/rhythm, Normal S1 S2 Gastrointestinal: Normal bowel sounds, No tenderness Neurological: Normal speech, Normal tone, Normal affect Assessment & Plan - Problems (Diagnosis) (1) Pneumonia due to COVID-19 virus Current Visit: Yes Status: Acute - Plan Continue with plan of care as mentioned below: 1. Continue IV steroids and oxygen requirements 2. Monitor inflammatory markers 3. Repeat chest x-ray 4. O2 per protocol-BiPAP at night & on high-flow in the daytime 5. Pulmonary consultation appreciated 6. Albuterol therapy 7. Monitor labs 8. GI and DVT prophylaxis
--- NOTE | 2021-01-03 01:14 | P.PN ---
Date of Service: 01/02/21 Subjective Patient's clinical symptoms continued to remain stable. Patient's oxygen requirements have been stable for the last 4-5 days. Family continues to visit. Awaiting improvement of oxygen status. Recheck labs Review of Systems 10-point ROS is otherwise unremarkable Physical Examination - Vital Signs Reviewed - Physical Exam General: Alert, In no apparent distress, Oriented x3 Respiratory: Tachypneic and diminished but otherwise clear Cardiovascular: Regular rate/rhythm, Normal S1 S2 Gastrointestinal: Normal bowel sounds, No tenderness Neurological: Normal speech, Normal tone, Normal affect Assessment & Plan - Problems (Diagnosis) (1) Pneumonia due to COVID-19 virus Current Visit: Yes Status: Acute - Plan Continue with plan of care as mentioned below: 1. Continue IV steroids and oxygen requirements 2. Monitor inflammatory markers 3. Repeat chest x-ray 4. O2 per protocol-BiPAP at night & on high-flow in the daytime 5. Pulmonary consultation appreciated 6. Albuterol therapy 7. Monitor labs 8. GI and DVT prophylaxis
[2021-01-03 04:12] LABS: Absolute Lymphocytes (CBC) 0.8 K/uL (0.7-4.9); Basophils % 0.4 % (0-1.3); Hematocrit 33.3 % (36.0-45.0); Lymphocytes % 4.4 % (15.3-44.8); MPV 8.8 fL (7.6-11.3); RBC Red Blood Cell Count 3.96 M/uL (3.86-4.86)
[2021-01-03 04:23] LABS: BUN Blood Urea Nitrogen 29 mg/dL (7-18); Bicarbonate 26 mmol/L (21-32); Glucose Level 182 mg/dL (74-106); Magnesium 2.5 mg/dL (1.8-2.4); Potassium 4.3 mmol/L (3.5-5.1); Sodium Level 140 mmol/L (136-145)
[2021-01-03 04:24] LABS: C-Reactive Protein < 2.90 mg/L (<3.00)
[2021-01-03 05:06] LABS: Blood Morphology Comment NOT SEEN (NOT SEEN); Platelet Estimate ADEQ
[2021-01-03] MEDS: PANTOPRAZOLE 40MG TABLET PO SCH (05:17)
[2021-01-03] MEDS: INSULIN -REGULAR HUMAN 50 UNIT/0.5 ML ML SQ SCH ×4 (07:30→19:47)
[2021-01-03] MEDS: GABAPENTIN 300 MG CAP PO SCH ×3 (08:46→19:47)
[2021-01-03] MEDS: VITAMIN D 1000 UNIT TAB PO SCH (08:46)
[2021-01-03] MEDS: BARICITINIB 2 MG TABLET PO SCH (08:46)
[2021-01-03] MEDS: FLUCONAZOLE 100 MG TAB PO SCH (08:46)
[2021-01-03] MEDS: CEFUROXIME 250 MG TAB PO SCH ×2 (08:46→19:46)
[2021-01-03] MEDS: dexAMETHasone 4 MG TAB PO SCH ×2 (08:47→19:47)
[2021-01-03] MEDS: ENSURE ENLIVE 237 ML CAN PO SCH ×2 (08:47→19:47)
[2021-01-03] MEDS: CITALOPRAM 10 MG TABLET PO SCH (08:47)
[2021-01-03] MEDS: ASPIRIN EC 81 MG TAB PO SCH (08:47)
[2021-01-03] MEDS: MAGNESIUM OXIDE 400 MG TAB PO SCH (08:47)
[2021-01-03] MEDS: THIAMINE HCL 100 MG TABLET PO SCH (08:47)
[2021-01-03] MEDS: FUROSEMIDE 20 MG TABLET PO SCH (08:47)
--- NOTE | 2021-01-03 16:30 | P.PN ---
Subjective Date of Service: 01/03/21 Chief Complaint: Respiratory failure from coronavirus Subjective: Other (Patient remains on high flow. She did requires BiPAP at 100% this afternoon.) Physical Examination - Vital Signs Temperature: 96.9 F Blood Pressure: 98/53 Pulse: 107 Respirations: 20 Pulse Ox (%): 91 - Studies Laboratory Data (last 24 hrs) 01/03/21 03:22: Sodium 140, Potassium 4.3, BUN 29 H, Creatinine 0.59, Glucose 182 H, Magnesium 2.5 H 01/03/21 03:22: WBC 18.10 H, Hgb 11.4 L, Hct 33.3 L, Plt Count 380 D Medications List Reviewed: Yes Assessment & Plan Discharge Plan: Home Plan to discharge in: Greater than 2 days Physician Review Additional Text: COVID: positive CXR: COMPARISON: No comparisons FINDINGS: Portable technique limits examination quality. Moderately severe bilateral airspace opacities are present, greater on the right, most compatible with underlying COVID-19 infection. The heart is normal in size. No displaced fractures. Follow up CXR 01/03/2021: Pending Physical Exam: GENERAL: Patient in better spirits. Patient does not appear labored. VITAL SIGNS: Reviewed HEENT: Neck supple LUNGS: Currently on BiPAP at 100%. HEART: Regular rate and rhythm, no appreciable gallops, rubs, murmurs or extra heart sounds ABDOMEN: Soft, nontender, and nondistended. Positive bowel sounds. No hepatosplenomegaly was noted. EXTREMITIES: Without any cyanosis, clubbing, rash, lesions or peripheral edema. NEUROLOGIC: The patient is oriented to person, place and time. Strength and sensation are grossly intact. Face is symmetric. SKIN: Normal color, turgor and temperature. No ulcerations or rashes noted. Impression: Acute respiratory failure secondary to bilateral Covid pneumonia Hypertension Hyperlipidemia Depression with anxiety Chronic pain GERD Plan: Acute respiratory failure secondary to bilateral Covid pneumonia: Patient remained stable on BiPAP. She was having to work a little bit harder this afternoon. Continue oral steroid and baricitinib. Continue Ceftin and Diflucan. Case discussed at length with patient and son who was present. Readdressed advanced directives. Patient remains DO NOT INTUBATE. Will discuss with pulmonology. Recheck chest x-ray this afternoon. Will provide Snowden catheter due to work of breathing. Hypertension: Blood pressure stable. Verapamil has been discontinued. If blood pressure is elevated may need to restart verapamil Hyperlipidemia: Continue with Lipitor 40 mg daily. Depression with anxiety: Continue with Celexa 20 mg daily and Xanax as needed. Chronic pain: Continue with gabapentin 300 mg 3 times a day and Elavil 75 mg at bedtime. GERD: Continue with Protonix Code Status: Patient is DO NOT INTUBATE DVT prophylaxis: Ishmaelrelto Advanced Care Planning-30 minutes: Continue to discuss plan with patient and son. Time Spent Managing Pts Care (In Minutes): 55
--- NOTE | 2021-01-03 16:32 | RAD REPORT ---
EXAM DESCRIPTION: [facility] Single View01/03/2021 4:14 pm CLINICAL HISTORY: Chest pain COMPARISON: December 31, 2020 FINDINGS: Minimal worsening in the bilateral pulmonary opacities The heart is normal size IMPRESSION: Minimal worsening in the extensive bilateral pneumonia
[2021-01-03] MEDS ORDERED: TRAMADOL HCL 50 MG TAB PO PRN (16:50)
[2021-01-03] MEDS ORDERED: HYDROCODONE/APAP 7.5/325 MG TAB PO PRN (16:50)
[2021-01-03] MEDS: RIVAROXABAN 20 MG TABLET PO SCH (17:41)
[2021-01-03] MEDS: ATORVASTATIN 40 MG TAB PO SCH (19:46)
[2021-01-03] MEDS: AMITRIPTYLINE 25 MG TAB PO SCH (19:46)
[2021-01-03] MEDS: MELATONIN 5 MG TABLET PO PRN (19:46)
[2021-01-04 04:17] LABS: Absolute Lymphocytes (CBC) 0.8 K/uL (0.7-4.9); Basophils % 0.2 % (0-1.3); Hematocrit 35.6 % (36.0-45.0); Lymphocytes % 4.4 % (15.3-44.8); MPV 8.7 fL (7.6-11.3); RBC Red Blood Cell Count 4.18 M/uL (3.86-4.86)
[2021-01-04 04:24] LABS: BUN Blood Urea Nitrogen 34 mg/dL (7-18); Bicarbonate 28 mmol/L (21-32); Glucose Level 200 mg/dL (74-106); Magnesium 2.4 mg/dL (1.8-2.4); Potassium 4.9 mmol/L (3.5-5.1); Sodium Level 139 mmol/L (136-145)
[2021-01-04 04:25] LABS: C-Reactive Protein < 2.90 mg/L (<3.00)
[2021-01-04] MEDS: PANTOPRAZOLE 40MG TABLET PO SCH (05:20)
--- NOTE | 2021-01-04 06:06 | P.PN ---
Subjective Date of Service: 01/04/21 Chief Complaint: Respiratory failure from coronavirus Subjective: Other (Overall stable.) Physical Examination - Vital Signs Temperature: 96 F Blood Pressure: 117/59 Pulse: 79 Respirations: 23 Pulse Ox (%): 88 - Studies Laboratory Data (last 24 hrs) 01/04/21 03:46: Sodium 139, Potassium 4.9, BUN 34 H, Creatinine 0.70, Glucose 200 H, Magnesium 2.4 01/04/21 03:46: WBC 17.70 H, Hgb 12.1, Hct 35.6 L, Plt Count 350 Medications List Reviewed: Yes Assessment & Plan Discharge Plan: Home Plan to discharge in: Greater than 2 days Physician Review Additional Text: COVID: positive CXR: COMPARISON: No comparisons FINDINGS: Portable technique limits examination quality. Moderately severe bilateral airspace opacities are present, greater on the right, most compatible with underlying COVID-19 infection. The heart is normal in size. No displaced fractures. Follow up CXR 01/04/2021: COMPARISON: Chest Single View dated 01/03/2021; Chest Single View dated 12/31/2020; Chest Single View dated 12/30/2020; Chest Single View dated 12/27/2020 FINDINGS: Portable technique limits examination quality. Moderate bilateral pulmonary opacities are present, without significant change since yesterday's study. The heart is mildly enlarged in size. No displaced fractures. IMPRESSION: Stable chest since 01/03/2021. Physical Exam: GENERAL: Patient in better spirits. Patient does not appear labored. VITAL SIGNS: Reviewed HEENT: Neck supple LUNGS: Currently on BiPAP at 100%. HEART: Regular rate and rhythm, no appreciable gallops, rubs, murmurs or extra heart sounds ABDOMEN: Soft, nontender, and nondistended. Positive bowel sounds. No hepatosplenomegaly was noted. EXTREMITIES: Without any cyanosis, clubbing, rash, lesions or peripheral edema. NEUROLOGIC: The patient is oriented to person, place and time. Strength and sensation are grossly intact. Face is symmetric. SKIN: Normal color, turgor and temperature. No ulcerations or rashes noted. Impression: Acute respiratory failure secondary to bilateral Covid pneumonia Hypertension Hyperlipidemia Depression with anxiety Chronic pain GERD Plan: Acute respiratory failure secondary to bilateral Covid pneumonia: Patient remained stable on BiPAP at 100%. No significant change consultant the past 2 weeks. Patient remains DO NOT INTUBATE. Continue oral steroid and baricitinib. Patient on Ceftin and Diflucan. Case discussed with pulmonology. Pulmonology recommends long-term acute care facility placement with continued treatment and potential rehab. Continue to discuss with pulmonology about plan of care. Hypertension: Blood pressure stable. Verapamil has been discontinued. If blood pressure is elevated may need to restart verapamil Hyperlipidemia: Continue with Lipitor 40 mg daily. Depression with anxiety: Continue with Celexa 20 mg daily and Xanax as needed. Chronic pain: Continue with gabapentin 300 mg 3 times a day and Elavil 75 mg at bedtime. GERD: Continue with Protonix Code Status: Patient is DO NOT INTUBATE DVT prophylaxis: Ishmaelrelmiguel Advanced Care Planning-30 minutes: Continue to discuss plan with patient and son. Time Spent Managing Pts Care (In Minutes): 55
[2021-01-04] MEDS: INSULIN -REGULAR HUMAN 50 UNIT/0.5 ML ML SQ SCH ×4 (07:30→23:29)
[2021-01-04] MEDS: ENSURE ENLIVE 237 ML CAN PO SCH ×2 (09:00→19:20)
[2021-01-04] MEDS: FUROSEMIDE 20 MG TABLET PO SCH (09:00)
[2021-01-04] MEDS: MAGNESIUM OXIDE 400 MG TAB PO SCH (09:00)
--- NOTE | 2021-01-04 09:42 | RAD REPORT ---
EXAM DESCRIPTION: RAD - Chest Single View - 01/04/2021 6:48 am CLINICAL HISTORY: pneumonia Chest pain. COMPARISON: Chest Single View dated 01/03/2021; Chest Single View dated 12/31/2020; Chest Single View dated 12/30/2020; Chest Single View dated 12/27/2020 FINDINGS: Portable technique limits examination quality. Moderate bilateral pulmonary opacities are present, without significant change since yesterday's stud y. The heart is mildly enlarged in size. No displaced fractures. IMPRESSION: Stable chest since 01/03/2021.
[2021-01-04] MEDS: GABAPENTIN 300 MG CAP PO SCH ×3 (09:54→20:11)
[2021-01-04] MEDS: VITAMIN D 1000 UNIT TAB PO SCH (09:54)
[2021-01-04] MEDS: ASPIRIN EC 81 MG TAB PO SCH (09:55)
[2021-01-04] MEDS: CITALOPRAM 10 MG TABLET PO SCH (09:55)
[2021-01-04] MEDS: FLUCONAZOLE 100 MG TAB PO SCH (09:55)
[2021-01-04] MEDS: THIAMINE HCL 100 MG TABLET PO SCH (09:55)
[2021-01-04] MEDS: dexAMETHasone 4 MG TAB PO SCH ×2 (09:55→20:11)
[2021-01-04] MEDS: CEFUROXIME 250 MG TAB PO SCH ×2 (09:56→19:19)
[2021-01-04] MEDS: BARICITINIB 2 MG TABLET PO SCH (09:57)
[2021-01-04] MEDS ORDERED: LORazepam 2 MG/ML VIAL IV ONE (11:20)
[2021-01-04] MEDS: propofoL 500 MG/50 ML ML IV ONE ×2 (12:16→12:59)
[2021-01-04] MEDS ORDERED: SUCCINYLCHOLINE 20 MG/ML (10 ML) IV ONE (12:23)
[2021-01-04] MEDS ORDERED: propofoL 1,000 MG/100 ML VIAL IV PRN (12:43)
--- NOTE | 2021-01-04 12:46 | P.PN ---
Subjective Date of Service: 01/04/21 Chief Complaint: Respiratory failure from coronavirus Pt not doing well. Agree with transfer to ICU for intubation Review of Systems General: Weakness Respiratory: Shortness of Breath Physical Examination - Vital Signs Temperature: 96 F Blood Pressure: 117/59 Pulse: 79 Respirations: 23 Pulse Ox (%): 88 - Physical Exam General: Alert, Moderate distress - Studies Laboratory Data (last 24 hrs) 01/04/21 03:46: Sodium 139, Potassium 4.9, BUN 34 H, Creatinine 0.70, Glucose 200 H, Magnesium 2.4 01/04/21 03:46: WBC 17.70 H, Hgb 12.1, Hct 35.6 L, Plt Count 350 Medications List Reviewed: Yes Assessment & Plan - Problems (Diagnosis) (1) Pneumonia due to COVID-19 virus Current Visit: Yes Status: Acute Plan: Not doing well, agree with transfer to icu for intubation/ prognosis poor/ Bilateral ILD/ WBC elevated Physician Review: Patient Assessed, Agree with Above Assessment and Plan
[2021-01-04] MEDS: LORazepam 2 MG/ML VIAL IV PRN ×2 (12:55→15:52)
[2021-01-04] MEDS: FENTANYL CITR 100 MCG/2 ML IV PRN (12:56)
[2021-01-04 13:10] LABS: Arterial Blood Carboxyhemoglob 1.1 % (0-1.5); Blood Gas Oxyhemoglobin 92.8 % (94-97)
[2021-01-04] MEDS ORDERED: propofoL 500 MG/50 ML ML IV ONE (13:24)
[2021-01-04] MEDS: MIDAZOLAM HCL 2 MG/2 ML INJ IV PRN (13:52)
[2021-01-04] MEDS: HALOPERIDOL LACT 5 MG/ML INJ IV PRN (13:52)
[2021-01-04] MEDS ORDERED: NA CHLORIDE 0.9% 250 ML IV PRN (14:25)
--- NOTE | 2021-01-04 16:00 | RAD REPORT ---
EXAM DESCRIPTION: RAD - Chest Single View - 01/04/2021 3:07 pm CLINICAL HISTORY: E-tube placement COMPARISON: Abdomen 1 View (KUB) dated 01/04/2021; Chest Single View dated 01/04/2021; Chest Single View dated 01/03/2021; Chest Single View dated 12/31/2020 FINDINGS: The endotracheal tube terminates at the irma. Recommend retraction by 2 cm. Bilateral ai rspace disease is again noted. Enteric tube partially imaged. IMPRESSION: The endotracheal tube terminates at the level of the irma. Suggest retracting by 2 cm for more optimal position. This finding was discussed with the ICU nurse at 1359.
--- NOTE | 2021-01-04 16:47 | RAD REPORT ---
EXAM DESCRIPTION: RAD - Abdomen 1 View (KUB) - 01/04/2021 3:07 pm CLINICAL HISTORY: Dobhoff placement COMPARISON: No comparisons FINDINGS: Nonobstructive bowel gas pattern. No acute osseous abnormality.Bilateral airspace disease noted. Endotracheal tube noted.No abnormal calcifications. The enteric tube coils in the gastric antr um with tip overlying the stomach. IMPRESSION: Nonobstructive bowel gas pattern. Weighted feeding tube tip overlies the stomach.
[2021-01-04] MEDS ORDERED: VITAL HP 1,000 ML BOT RTH SCH (17:00)
[2021-01-04] MEDS: HYDROMORPHONE HCL 2 MG/ML inj IV PRN ×2 (17:10→21:00)
[2021-01-04] MEDS: RIVAROXABAN 20 MG TABLET PO SCH (18:00)
[2021-01-04] MEDS: NA CHLORIDE 0.9% 1,000 ML IV SCH (18:00)
--- NOTE | 2021-01-04 18:25 | RAD REPORT ---
EXAM DESCRIPTION: RAD - Chest Single View - 01/04/2021 6:08 pm CLINICAL HISTORY: Picc line placement COMPARISON: Chest Single View dated 01/04/2021; Abdomen 1 View (KUB) dated 01/04/2021; Chest Single View dated 01/04/2021; Chest Single View dated 01/03/2021 FINDINGS: The endotracheal tube has been retracted to the level of the aortic arch in satisfactory p osition. Left subclavian approach PICC with tip difficult to visualize but likely near the right atri um. Suggest retracting by 3 cm if the desired location is within the SVC. Enteric tube below the diap hragm. Patchy airspace disease again noted. IMPRESSION: Left subclavian approach PICC with tip difficult to visualize but favored to be at the r ight atrium. Suggest retracting by 3 cm to reposition in the SVC. Endotracheal tube has been removed retracted and is at the level of the aortic arch in satisfactory position.
[2021-01-04] MEDS ORDERED: GLUCAGON 1 MG/VIAL IM PRN (19:29)
[2021-01-04] MEDS ORDERED: D50W 25 GM/50 ML SYRINGE IV PRN (19:29)
[2021-01-04] MEDS ORDERED: INSULIN -REGULAR HUMAN 50 UNIT/0.5 ML ML SQ SCH (20:00)
[2021-01-04] MEDS: ATORVASTATIN 40 MG TAB PO SCH (20:11)
[2021-01-04] MEDS: AMITRIPTYLINE 25 MG TAB PO SCH (20:15)
[2021-01-04] MEDS ORDERED: FAMOTIDINE 20 MG/2 ML VIAL IV SCH (21:00)
[2021-01-05] MEDS: HYDROMORPHONE HCL 2 MG/ML inj IV PRN ×3 (03:14→20:52)
[2021-01-05] MEDS: INSULIN -REGULAR HUMAN 50 UNIT/0.5 ML ML SQ SCH ×3 (05:32→18:00)
[2021-01-05 05:37] LABS: Magnesium 2.6 mg/dL (1.8-2.4); Potassium 3.7 mmol/L (3.5-5.1)
[2021-01-05 05:40] LABS: Absolute Lymphocytes (CBC) 0.6 K/uL (0.7-4.9); Basophils % 0.1 % (0-1.3); Hematocrit 32.6 % (36.0-45.0); Lymphocytes % 2.6 % (15.3-44.8); RBC Red Blood Cell Count 3.79 M/uL (3.86-4.86)
[2021-01-05] MEDS ORDERED: KCL 20 MEQ/100 mL IVPB 20 MEQ/100 ML BAG IV SCH (05:55)
--- NOTE | 2021-01-05 05:55 | P.PN ---
Subjective Date of Service: 01/05/21 Chief Complaint: Respiratory failure from coronavirus Subjective: Other (Overall stable. Patient remains on ventilator but alert and cooperative) Physical Examination - Vital Signs Temperature: 96.9 F Blood Pressure: 93/58 Pulse: 75 Respirations: 30 Pulse Ox (%): 30 - Studies Laboratory Data (last 24 hrs) 01/05/21 04:55: Sodium 142, Potassium 3.7, BUN 42 H, Creatinine 0.69, Glucose 189 H, Phosphorus 5.0 H, Magnesium 2.6 H 01/05/21 04:55: WBC 24.70 H* D, Hgb 10.7 L, Hct 32.6 L, Plt Count 313 Medications List Reviewed: Yes Assessment & Plan Discharge Plan: LTAC Plan to discharge in: Greater than 2 days Physician Review Additional Text: COVID: positive CXR: COMPARISON: No comparisons FINDINGS: Portable technique limits examination quality. Moderately severe bilateral airspace opacities are present, greater on the right, most compatible with underlying COVID-19 infection. The heart is normal in size. No displaced fractures. Follow up CXR 01/05/2021: COMPARISON: Chest Single View dated 01/04/2021; Chest Single View dated 1 ; Abdomen 1 View (KUB) dated 01/04/2021; Chest Single View dated 01/04/2021; Chest Single View dated 01/03/2021 FINDINGS: Lines: Left subclavian approach PICC with tip overlying the SVC in satisfactory position. Endotracheal tube at the aortic arch in satisfactory position. Feeding tube below the diaphragm. Lungs: Similar bilateral airspace disease, most notably at the left lung base wh ich is unchanged. Pleural: No significant pleural effusions or pneumothorax. Cardiac: The heart size is within normal limits. Bones: No acute fractures. IMPRESSION: Bilateral airspace disease, left greater than right, which is similar to yesterday. Support apparatus in satisfactory position. Physical Exam: GENERAL: Patient remains on the ventilator. Patient alert and cooperative VITAL SIGNS: Reviewed HEENT: Neck supple LUNGS: Patient on ventilator 100% FiO2. HEART: Regular rate and rhythm, no appreciable gallops, rubs, murmurs or extra heart sounds ABDOMEN: Soft, nontender, and nondistended. Positive bowel sounds. No hepatosplenomegaly was noted. EXTREMITIES: Without any cyanosis, clubbing, rash, lesions or peripheral edema. NEUROLOGIC: Patient alert and cooperative SKIN: Normal color, turgor and temperature. No ulcerations or rashes noted. Impression: Acute respiratory failure secondary to bilateral Covid pneumonia Hypertension Hyperlipidemia Depression with anxiety Chronic pain GERD Leukocytosis Plan: Acute respiratory failure secondary to bilateral Covid pneumonia: Patient remains on ventilator at 100% FiO2. Patient alert and cooperative. Patient remained stable on BiPAP at 100%. Dobbhoff in place. Continue current medications. Patient with elevated leukocytosis likely related to yesterday. Patient on antibiotic therapy and antifungal. Will discuss with pulmonology about plan of care. Hypertension: Blood pressure slightly on the low side. Patient on IV fluids. Will discuss with pulmonology. Hyperlipidemia: Continue with Lipitor 40 mg daily. Depression with anxiety: Continue with Celexa 20 mg daily and Xanax as needed. Chronic pain: Continue with gabapentin 300 mg 3 times a day and Elavil 75 mg at bedtime. GERD: Continue with Protonix Leukocytosis: Likely related to above. Continue antibiotic and antifungal to cover for opportunistic infection Code Status: Patient full code DVT prophylaxis: Xarelto Advanced Care Planning-30 minutes: Continue to discuss with patient and son. Patient may require long-term acute care facility. Will discuss with son. Time Spent Managing Pts Care (In Minutes): 55
[2021-01-05 07:02] LABS: Blood Morphology Comment NOT SEEN (NOT SEEN); Platelet Estimate ADEQ
[2021-01-05] MEDS: PANTOPRAZOLE 40 MG INJ IVP SCH (07:57)
[2021-01-05] MEDS: LORazepam 2 MG/ML VIAL IV PRN ×2 (07:58→12:58)
[2021-01-05] MEDS: ENSURE ENLIVE 237 ML CAN PO SCH ×2 (07:58→19:53)
[2021-01-05] MEDS: FUROSEMIDE 20 MG TABLET PO SCH (07:58)
[2021-01-05] MEDS: CITALOPRAM 10 MG TABLET PO SCH (07:58)
[2021-01-05] MEDS: dexAMETHasone 4 MG TAB PO SCH ×2 (07:59→20:01)
[2021-01-05] MEDS: THIAMINE HCL 100 MG TABLET PO SCH (07:59)
[2021-01-05] MEDS: ASPIRIN EC 81 MG TAB PO SCH (07:59)
[2021-01-05] MEDS: GABAPENTIN 300 MG CAP PO SCH ×3 (07:59→20:01)
[2021-01-05] MEDS: VITAMIN D 1000 UNIT TAB PO SCH (07:59)
[2021-01-05] MEDS: BARICITINIB 2 MG TABLET PO SCH (07:59)
[2021-01-05] MEDS: FLUCONAZOLE 100 MG TAB PO SCH (07:59)
[2021-01-05] MEDS: MAGNESIUM OXIDE 400 MG TAB PO SCH (08:00)
[2021-01-05] MEDS: NA CHLORIDE 0.9% 1,000 ML IV SCH (08:34)
--- NOTE | 2021-01-05 08:35 | RAD REPORT ---
EXAM DESCRIPTION: RAD - Chest Single View - 01/05/2021 7:10 am CLINICAL HISTORY: Respiratory Failure COMPARISON: Chest Single View dated 01/04/2021; Chest Single View dated 01/04/2021; Abdomen 1 View ( KUB) dated 01/04/2021; Chest Single View dated 01/04/2021; Chest Single View dated 01/03/2021 FINDINGS: Lines: Left subclavian approach PICC with tip overlying the SVC in satisfactory position. Endotracheal tube at the aortic arch in satisfactory position. Feeding tube below the diaphragm. Lungs: Similar bilateral airspace disease, most notably at the left lung base which is unchanged. Pleural: No significant pleural effusions or pneumothorax. Cardiac: The heart size is within normal limits. Bones: No acute fractures. Other: IMPRESSION: Bilateral airspace disease, left greater than right, which is similar to yesterday. Supp ort apparatus in satisfactory position.
[2021-01-05] MEDS: CEFUROXIME 250 MG TAB PO SCH (09:00)
[2021-01-05] MEDS ORDERED: VITAL HP 1,000 ML BOT RTH SCH (10:12)
[2021-01-05 10:28] LABS: Arterial Blood Carboxyhemoglob 1.1 % (0-1.5); Blood Gas Oxyhemoglobin 91.7 % (94-97); Blood O2 Saturation 93.8 % (92-98.5)
--- NOTE | 2021-01-05 11:40 | P.PN ---
Subjective Date of Service: 01/05/21 Chief Complaint: Respiratory failure from coronavirus Stable on vent. 100% Fio2 low BP Review of Systems is unable to be obtained Physical Examination - Vital Signs Temperature: 96.9 F Blood Pressure: 93/58 Pulse: 75 Respirations: 30 Pulse Ox (%): 30 - Physical Exam General: Unresponsive Respiratory: Diminished - Studies Laboratory Data (last 24 hrs) 01/05/21 04:55: Sodium 142, Potassium 3.7, BUN 42 H, Creatinine 0.69, Glucose 189 H, Phosphorus 5.0 H, Magnesium 2.6 H 01/05/21 04:55: WBC 24.70 H* D, Hgb 10.7 L, Hct 32.6 L, Plt Count 313 Medications List Reviewed: Yes Assessment & Plan - Problems (Diagnosis) (1) Pneumonia due to COVID-19 virus Current Visit: Yes Status: Acute Plan: On vent, check ABG, labs reviewed, prn sedation, Dc Lasix/ corona eto cefepime for now Physician Review: Patient Assessed, Agree with Above Assessment and Plan
[2021-01-05 12:46] LABS: Arterial Blood Carboxyhemoglob 1.3 % (0-1.5); Blood Gas Oxyhemoglobin 89.9 % (94-97)
[2021-01-05] MEDS: RIVAROXABAN 20 MG TABLET PO SCH (17:08)
[2021-01-05] MEDS: CEFEPIME 1 GM/100 ML BAG IV SCH (20:01)
[2021-01-05] MEDS: AMITRIPTYLINE 25 MG TAB PO SCH (20:01)
[2021-01-05] MEDS ORDERED: CEFEPIME 1 GM/VIAL IV SCH (21:00)
[2021-01-06] MEDS: INSULIN -REGULAR HUMAN 50 UNIT/0.5 ML ML SQ SCH ×5 (00:05→23:31)
[2021-01-06] MEDS: HYDROMORPHONE HCL 2 MG/ML inj IV PRN ×5 (01:44→22:45)
[2021-01-06] MEDS: NA CHLORIDE 0.9% 1,000 ML IV SCH (02:46)
[2021-01-06 05:24] LABS: Absolute Lymphocytes (CBC) 0.6 K/uL (0.7-4.9); Basophils % 0.1 % (0-1.3); Hematocrit 30.9 % (36.0-45.0); Lymphocytes % 2.9 % (15.3-44.8); MPV 8.9 fL (7.6-11.3); RBC Red Blood Cell Count 3.57 M/uL (3.86-4.86)
[2021-01-06 05:33] LABS: BUN Blood Urea Nitrogen 41 mg/dL (7-18); Bicarbonate 24 mmol/L (21-32); Glucose Level 215 mg/dL (74-106); Magnesium 2.4 mg/dL (1.8-2.4); Potassium 3.7 mmol/L (3.5-5.1); Sodium Level 143 mmol/L (136-145)
--- NOTE | 2021-01-06 05:46 | P.PN ---
Subjective Date of Service: 01/06/21 Chief Complaint: Respiratory failure from coronavirus Subjective: Other (Patient stable. No significant changes) Physical Examination - Vital Signs Temperature: 97.8 F Blood Pressure: 95/73 Pulse: 91 Respirations: 30 Pulse Ox (%): 91 - Studies Laboratory Data (last 24 hrs) 01/06/21 04:40: Sodium 143, Potassium 3.7, BUN 41 H, Creatinine 0.60, Glucose 215 H, Phosphorus 3.0, Magnesium 2.4 01/06/21 04:40: WBC 19.10 H D, Hgb 10.2 L, Hct 30.9 L, Plt Count 280 01/05/21 04:55: Sodium 142, Potassium 3.7, BUN 42 H, Creatinine 0.69, Glucose 189 H, Phosphorus 5.0 H, Magnesium 2.6 H 01/05/21 04:55: WBC 24.70 H* D, Hgb 10.7 L, Hct 32.6 L, Plt Count 313 Microbiology Data (last 24 hrs): 12/31/20 20:37 Blood - Blood Aerobic Blood Culture - Final No growth in 5 days. 12/31/20 20:37 Blood - Blood Anaerobic Blood Culture - Final No growth in 5 days. Medications List Reviewed: Yes Assessment & Plan Discharge Plan: LTAC Plan to discharge in: Greater than 2 days Physician Review Additional Text: COVID: positive CXR: COMPARISON: No comparisons FINDINGS: Portable technique limits examination quality. Moderately severe bilateral airspace opacities are present, greater on the right, most compatible with underlying COVID-19 infection. The heart is normal in size. No displaced fractures. Follow up CXR 01/05/2021: COMPARISON: Chest Single View dated 01/04/2021; Chest Single View dated 01/04/2021; Abdomen 1 View (KUB) dated 01/04/2021; Chest Single View dated 01/04/2021; Chest Single View dated 01/03/2021 FINDINGS: Lines: Left subclavian approach PICC with tip overlying the SVC in satisfactory position. Endotracheal tube at the aortic arch in satisfactory position. Feeding tube below the diaphragm. Lungs: Similar bilateral airspace disease, most notably at the left lung base which is unchanged. Pleural: No significant pleural effusions or pneumothorax. Cardiac: The heart size is within normal limits. Bones: No acute fractures. IMPRESSION: Bilateral airspace disease, left greater than right, which is similar to yesterday. Support apparatus in satisfactory position. Physical Exam: GENERAL: Patient remains on the ventilator. Patient alert and cooperative VITAL SIGNS: Reviewed HEENT: Neck supple LUNGS: Patient on ventilator 100% FiO2. HEART: Regular rate and rhythm, no appreciable gallops, rubs, murmurs or extra heart sounds ABDOMEN: Soft, nontender, and nondistended. Positive bowel sounds. No hepatosplenomegaly was noted. EXTREMITIES: Without any cyanosis, clubbing, rash, lesions or peripheral edema. NEUROLOGIC: Patient alert and cooperative SKIN: Normal color, turgor and temperature. No ulcerations or rashes noted. Impression: Acute respiratory failure secondary to bilateral Covid pneumonia Hypertension Hyperlipidemia Depression with anxiety Chronic pain GERD Leukocytosis Plan: Acute respiratory failure secondary to bilateral Covid pneumonia: Patient remained stable. No significant changes since yesterday. Patient remains on ventilator at 100% FiO2. Pulmonology has adjusted antibiotic therapy. Currently on cefepime. Continue Diflucan. Continue steroid treatment. Continue with pulmonology to help wean off ventilator. Will discuss with family about plan of care and the possibility of future LTAC. Hypertension: Blood pressure slightly on the low side. Will adjust IV fluids. Will discuss with pulmonology. Hyperlipidemia: Continue with Lipitor 40 mg daily. Depression with anxiety: Continue with Celexa 20 mg daily and Xanax as needed. Chronic pain: Continue with gabapentin 300 mg 3 times a day and Elavil 75 mg at bedtime. GERD: Continue with Protonix Leukocytosis: Likely related to above. Continue antibiotic and antifungal to cover for opportunistic infection Code Status: Patient full code DVT prophylaxis: Xarelto Advanced Care Planning-30 minutes: Continue to discuss with patient and son. Patient may require long-term acute care facility. Will discuss with son. Time Spent Managing Pts Care (In Minutes): 55
[2021-01-06] MEDS ORDERED: KCL 20 MEQ/100 mL IVPB 20 MEQ/100 ML BAG IV SCH (06:00)
[2021-01-06 06:15] LABS: Arterial Blood Carboxyhemoglob 1.2 % (0-1.5); Blood Gas Oxyhemoglobin 89.9 % (94-97)
--- NOTE | 2021-01-06 07:52 | RAD REPORT ---
EXAM DESCRIPTION: RAD - Chest Single View - 01/06/2021 6:13 am CLINICAL HISTORY: Follow up COVID COMPARISON: Chest Single View dated 01/05/2021; Chest Single View dated 01/04/2021; Chest Single Vie w dated 01/04/2021; Abdomen 1 View (KUB) dated 01/04/2021 FINDINGS: Lines: Endotracheal tube at the level of the aortic arch. Feeding tube below the diaphragm . Left subclavian approach PICC with tip overlying the SVC. Lungs: Bilateral airspace disease which is seemingly worsened in the left lung. Pleural: No significant pleural effusions or pneumothorax. Cardiac: The heart size is within normal limits. Bones: No acute fractures. Other: IMPRESSION: Bilateral airspace disease, worse on the left side compared with yesterday. This could r eflect worsening pneumonia. Support apparatus in satisfactory position.
[2021-01-06] MEDS: LORazepam 2 MG/ML VIAL IV PRN ×2 (08:32→14:01)
[2021-01-06] MEDS: THIAMINE HCL 100 MG TABLET PO SCH (08:33)
[2021-01-06] MEDS: BARICITINIB 2 MG TABLET PO SCH (08:33)
[2021-01-06] MEDS: PANTOPRAZOLE 40 MG INJ IVP SCH (08:33)
[2021-01-06] MEDS: VITAMIN D 1000 UNIT TAB PO SCH (08:33)
[2021-01-06] MEDS: CEFEPIME 1 GM/100 ML BAG IV SCH ×2 (08:34→20:00)
[2021-01-06] MEDS: GABAPENTIN 300 MG CAP PO SCH ×3 (08:34→20:00)
[2021-01-06] MEDS: FLUCONAZOLE 100 MG TAB PO SCH (08:34)
[2021-01-06] MEDS: CITALOPRAM 10 MG TABLET PO SCH (08:34)
[2021-01-06] MEDS: MAGNESIUM OXIDE 400 MG TAB PO SCH (08:34)
[2021-01-06] MEDS: dexAMETHasone 4 MG TAB PO SCH ×2 (08:34→20:00)
[2021-01-06] MEDS: ENSURE ENLIVE 237 ML CAN PO SCH ×2 (08:34→19:30)
[2021-01-06] MEDS: ASPIRIN EC 81 MG TAB PO SCH (08:34)
[2021-01-06] MEDS: NACHLORIDE 0.45% 1,000 ML IV SCH (10:50)
--- NOTE | 2021-01-06 13:01 | P.PN ---
Subjective Date of Service: 01/06/21 Chief Complaint: Respiratory failure from coronavirus Patient is not doing well still 100% FiO2 Review of Systems is unable to be obtained Physical Examination - Vital Signs Temperature: 97.8 F Blood Pressure: 95/73 Pulse: 91 Respirations: 30 Pulse Ox (%): 91 - Physical Exam General: Unresponsive - Studies Laboratory Data (last 24 hrs) 01/06/21 04:40: Sodium 143, Potassium 3.7, BUN 41 H, Creatinine 0.60, Glucose 215 H, Phosphorus 3.0, Magnesium 2.4 01/06/21 04:40: WBC 19.10 H D, Hgb 10.2 L, Hct 30.9 L, Plt Count 280 Microbiology Data (last 24 hrs): 12/31/20 20:37 Blood - Blood Aerobic Blood Culture - Final No growth in 5 days. 12/31/20 20:37 Blood - Blood Anaerobic Blood Culture - Final No growth in 5 days. Medications List Reviewed: Yes Assessment & Plan - Problems (Diagnosis) (1) Pneumonia due to COVID-19 virus Current Visit: Yes Status: Acute Plan: Respiratory failure 100% FiO2 chest x-ray still looks worse severe hypoxemia on ABGs labs reviewed white count is declining prognosis poor increase PEEP to 13 Physician Review: Patient Assessed, Agree with Above Assessment and Plan
[2021-01-06] MEDS: RIVAROXABAN 20 MG TABLET PO SCH (16:14)
[2021-01-06] MEDS: AMITRIPTYLINE 25 MG TAB PO SCH (20:01)
[2021-01-07] MEDS: LORazepam 2 MG/ML VIAL IV PRN ×4 (01:26→20:05)
[2021-01-07] MEDS: HYDROMORPHONE HCL 2 MG/ML inj IV PRN ×4 (02:31→16:55)
[2021-01-07 05:05] LABS: Absolute Lymphocytes (CBC) 0.5 K/uL (0.7-4.9); Basophils % 0.1 % (0-1.3); Hematocrit 26.8 % (36.0-45.0); Lymphocytes % 3.3 % (15.3-44.8); MPV 9.2 fL (7.6-11.3); RBC Red Blood Cell Count 3.11 M/uL (3.86-4.86)
[2021-01-07 05:23] LABS: ALT/SGPT 62 U/L (12-78); AST/SGOT 46 U/L (15-37); Alkaline Phosphatase 177 U/L (45-117); BUN Blood Urea Nitrogen 30 mg/dL (7-18); Bicarbonate 26 mmol/L (21-32); Bilirubin Total 0.2 mg/dL (0.2-1.0); C-Reactive Protein 7.93 mg/L (<3.00); Glucose Level 197 mg/dL (74-106); Magnesium 2.1 mg/dL (1.8-2.4); Phosphorus 2.3 mg/dL (2.5-4.9); Potassium 3.9 mmol/L (3.5-5.1); Protein, Total 5.6 g/dL (6.4-8.2); Sodium Level 136 mmol/L (136-145)
[2021-01-07] MEDS: INSULIN -REGULAR HUMAN 50 UNIT/0.5 ML ML SQ SCH ×3 (05:26→17:44)
[2021-01-07] MEDS: NACHLORIDE 0.45% 1,000 ML IV SCH (05:27)
[2021-01-07] MEDS ORDERED: POTASSIUM PHOS IN 0.9 % NACL 15 MMOL/250 ML BAG IV ONE (05:34)
--- NOTE | 2021-01-07 05:51 | P.PN ---
Subjective Date of Service: 01/07/21 Chief Complaint: Respiratory failure from coronavirus Subjective: Other (No change. Patient remains on ventilator) Physical Examination - Vital Signs Temperature: 97.9 F Blood Pressure: 99/60 Pulse: 86 Respirations: 30 Pulse Ox (%): 87 - Studies Laboratory Data (last 24 hrs) 01/07/21 04:30: WBC 14.80 H D, Hgb 8.9 L, Hct 26.8 L, Plt Count 204 D 01/07/21 04:30: Sodium 136, Potassium 3.9, BUN 30 H, Creatinine 0.42 L, Glucose 197 H, Phosphorus 2.3 L, Magnesium 2.1, Total Bilirubin 0.2, AST 46 H, ALT 62, Alkaline Phosphatase 177 H Medications List Reviewed: Yes Assessment & Plan Discharge Plan: Home Plan to discharge in: Greater than 2 days Physician Review Additional Text: COVID: positive CXR: COMPARISON: No comparisons FINDINGS: Portable technique limits examination quality. Moderately severe bilateral airspace opacities are present, greater on the right, most compatible with underlying COVID-19 infection. The heart is normal in size. No displaced fractures. Follow up CXR 01/07/2021: COMPARISON: January 06 FINDINGS: Endotracheal tube has its tip overlying the aortic arch. Feeding tube coiled within the distal stomach. PICC line in place No significant change in the bilateral pulmonary opacities much worse on the left. IMPRESSION: No significant change in the bilateral pulmonary opacities much worse on the left probably pneumonia Physical Exam: GENERAL: Patient remains on the ventilator. VITAL SIGNS: Reviewed HEENT: Neck supple LUNGS: Patient on ventilator 100% FiO2. HEART: Regular rate and rhythm, no appreciable gallops, rubs, murmurs or extra heart sounds ABDOMEN: Soft, nontender, and nondistended. Positive bowel sounds. No hepatosplenomegaly was noted. EXTREMITIES: Without any cyanosis, clubbing, rash, lesions or peripheral edema. NEUROLOGIC: Patient remains on ventilator SKIN: Normal color, turgor and temperature. No ulcerations or rashes noted. Impression: Acute respiratory failure secondary to bilateral Covid pneumonia Hypertension Hyperlipidemia Depression with anxiety Chronic pain GERD Leukocytosis Plan: Acute respiratory failure secondary to bilateral Covid pneumonia: Patient remains on ventilator. No significant changes since yesterday. Patient remains on 100% FiO2. Case discussed at length with pulmonology. Continue IV antibiotic therapy, steroids. Patient also on antifungal medication. Cultures negative. Case discussed at length with son about plan of care. Son wants to continue with current treatment. Pulmonology suspects patient will likely not improve as patient has not showed any progress over the past several weeks. Continue to monitor closely. Will monitor and adjust medication. Hypertension: Blood pressure slightly on the low side. Will discuss with pulmonology. Hyperlipidemia: Continue with Lipitor 40 mg daily. Depression with anxiety: Continue with Celexa 20 mg daily and Xanax as needed. Chronic pain: Continue with gabapentin 300 mg 3 times a day and Elavil 75 mg at bedtime. GERD: Continue with Protonix Leukocytosis: Likely related to above. Continue antibiotic and antifungal to cover for opportunistic infection Code Status: Patient full code DVT prophylaxis: Xarelto Advanced Care Planning-30 minutes: Case discussed with son. Continue with current management. Time Spent Managing Pts Care (In Minutes): 55
[2021-01-07 05:58] LABS: Blood O2 Saturation 89.1 % (92-98.5)
[2021-01-07 05:59] LABS: Arterial Blood Carboxyhemoglob 1.2 % (0-1.5)
[2021-01-07] MEDS: PANTOPRAZOLE 40 MG INJ IVP SCH (08:17)
[2021-01-07] MEDS: VITAMIN D 1000 UNIT TAB PO SCH (08:17)
[2021-01-07] MEDS: MAGNESIUM OXIDE 400 MG TAB PO SCH (08:18)
[2021-01-07] MEDS: ASPIRIN EC 81 MG TAB PO SCH (08:18)
[2021-01-07] MEDS: THIAMINE HCL 100 MG TABLET PO SCH (08:18)
[2021-01-07] MEDS: FLUCONAZOLE 100 MG TAB PO SCH (08:19)
[2021-01-07] MEDS: dexAMETHasone 4 MG TAB PO SCH (08:19)
[2021-01-07] MEDS: GABAPENTIN 300 MG CAP PO SCH ×3 (08:19→19:50)
[2021-01-07] MEDS: CITALOPRAM 10 MG TABLET PO SCH (08:19)
[2021-01-07] MEDS: CEFEPIME 1 GM/100 ML BAG IV SCH ×2 (08:19→19:49)
--- NOTE | 2021-01-07 08:22 | RAD REPORT ---
EXAM DESCRIPTION: [facility] Single View01/07/2021 6:57 am CLINICAL HISTORY: Shortness of breath COMPARISON: January 06 FINDINGS: Endotracheal tube has its tip overlying the aortic arch. Feeding tube coiled within the di stal stomach. PICC line in place No significant change in the bilateral pulmonary opacities much worse on the left. IMPRESSION: No significant change in the bilateral pulmonary opacities much worse on the left probab ly pneumonia
--- NOTE | 2021-01-07 12:57 | P.PN ---
Subjective Date of Service: 01/07/21 Chief Complaint: Respiratory failure from coronavirus Patient condition has not changed still on maximum oxygen she is responsive off any sedation Physical Examination - Vital Signs Temperature: 98.6 F Blood Pressure: 122/68 Pulse: 95 Respirations: 13 Pulse Ox (%): 87 - Physical Exam General: Alert, Cooperative - Studies Laboratory Data (last 24 hrs) 01/07/21 04:30: WBC 14.80 H D, Hgb 8.9 L, Hct 26.8 L, Plt Count 204 D 01/07/21 04:30: Sodium 136, Potassium 3.9, BUN 30 H, Creatinine 0.42 L, Glucose 197 H, Phosphorus 2.3 L, Magnesium 2.1, Total Bilirubin 0.2, AST 46 H, ALT 62, Alkaline Phosphatase 177 H Microbiology Data (last 24 hrs): 01/06/21 07:45 Sputum Sputum Gram Stain - Final Medications List Reviewed: Yes Assessment & Plan - Problems (Diagnosis) (1) Pneumonia due to COVID-19 virus Current Visit: Yes Status: Acute Plan: Respiratory failure on 100% FiO2 vent settings changed to pressure control chemistries reviewed white count is declining continues to remain hypoxic labs medication list all reviewed chest x-ray no change patient is very hypoxic prognosis poor Physician Review: Patient Assessed, Agree with Above Assessment and Plan
[2021-01-07 14:57] LABS: Arterial Blood Carboxyhemoglob 1.4 % (0-1.5); Blood Gas Oxyhemoglobin 88.1 % (94-97); Blood O2 Saturation 90.5 % (92-98.5)
[2021-01-07] MEDS: RIVAROXABAN 20 MG TABLET PO SCH (16:46)
[2021-01-07] MEDS: AMITRIPTYLINE 25 MG TAB PO SCH (19:49)
[2021-01-07] MEDS: dexAMETHasone 10 MG/ML VIAL IV SCH (19:50)
[2021-01-08] MEDS: HYDROMORPHONE HCL 2 MG/ML inj IV PRN ×5 (00:28→20:32)
[2021-01-08] MEDS: LORazepam 2 MG/ML VIAL IV PRN ×5 (01:29→20:11)
[2021-01-08] MEDS: INSULIN -REGULAR HUMAN 50 UNIT/0.5 ML ML SQ SCH ×4 (05:25→17:30)
[2021-01-08 05:47] LABS: Arterial Blood Carboxyhemoglob 1.4 % (0-1.5); Blood Gas Oxyhemoglobin 89.5 % (94-97); Blood O2 Saturation 91.6 % (92-98.5)
[2021-01-08 05:50] LABS: Absolute Lymphocytes (CBC) 0.4 K/uL (0.7-4.9); Hematocrit 27.3 % (36.0-45.0); Lymphocytes % 2.7 % (15.3-44.8); MPV 9.2 fL (7.6-11.3); RBC Red Blood Cell Count 3.18 M/uL (3.86-4.86)
--- NOTE | 2021-01-08 05:52 | P.PN ---
Subjective Date of Service: 01/08/21 Chief Complaint: Respiratory failure from coronavirus Subjective: Other (Patient remains on the ventilator sedated.) Physical Examination - Vital Signs Temperature: 97.5 F Blood Pressure: 110/58 Pulse: 81 Respirations: 20 Pulse Ox (%): 91 - Studies Microbiology Data (last 24 hrs): 01/06/21 07:45 Sputum Sputum Gram Stain - Final Medications List Reviewed: Yes Assessment & Plan Discharge Plan: LTAC Plan to discharge in: Greater than 2 days Physician Review Additional Text: COVID: positive CXR: COMPARISON: No comparisons FINDINGS: Portable technique limits examination quality. Moderately severe bilateral airspace opacities are present, greater on the right, most compatible with underlying COVID-19 infection. The heart is normal in size. No displaced fractures. Follow up CXR 01/07/2021: COMPARISON: January 06 FINDINGS: Endotracheal tube has its tip overlying the aortic arch. Feeding tube coiled within the distal stomach. PICC line in place No significant change in the bilateral pulmonary opacities much worse on the left. IMPRESSION: No significant change in the bilateral pulmonary opacities much worse on the left probably pneumonia Physical Exam: GENERAL: Patient remains on the ventilator. Patient sedated. VITAL SIGNS: Reviewed HEENT: Neck supple LUNGS: Patient on ventilator 100% FiO2. HEART: Regular rate and rhythm, no appreciable gallops, rubs, murmurs or extra heart sounds ABDOMEN: Soft, nontender, and nondistended. Positive bowel sounds. No hepatosplenomegaly was noted. EXTREMITIES: Without any cyanosis, clubbing, rash, lesions or peripheral edema. NEUROLOGIC: Patient remains on ventilator SKIN: Normal color, turgor and temperature. No ulcerations or rashes noted. Impression: Acute respiratory failure secondary to bilateral Covid pneumonia Hypertension Hyperlipidemia Depression with anxiety Chronic pain GERD Leukocytosis Plan: Acute respiratory failure secondary to bilateral Covid pneumonia: Patient remai ns on ventilator sedated. No significant change since yesterday. Patient still on max therapy on ventilator. FiO2 at 100%. Continue IV antibiotic therapycefepime, antifungalDiflucan, and steroidDecadron. Continue tube feeds. Sputum, blood cultures negative. No significant change in chest x-ray. Case discussed at length with pulmonology. Pulmonology suspects patient will likely not improve. Patient on max therapy. Case discussed at length with son the other day. Son wants to continue with current management. Continue with current medications. Will monitor closely. Consider LTAC if with more improvement. Hypertension: Blood pressure slightly on the low side. Hyperlipidemia: Continue with Lipitor 40 mg daily. Depression with anxiety: Continue with Celexa 20 mg daily and Xanax as needed. Chronic pain: Continue with gabapentin 300 mg 3 times a day and Elavil 75 mg at bedtime. GERD: Continue with Protonix Leukocytosis: Improved. Likely related to above. Continue antibiotic and antifungal to cover for opportunistic infection Code Status: Patient full code DVT prophylaxis: Xarelto Advanced Care Planning-30 minutes: Case discussed with son. Continue with current management. Time Spent Managing Pts Care (In Minutes): 55
[2021-01-08 05:58] LABS: ALT/SGPT 54 U/L (12-78); AST/SGOT 44 U/L (15-37); Albumin 2.1 g/dL (3.4-5.0); Alkaline Phosphatase 159 U/L (45-117); BUN Blood Urea Nitrogen 23 mg/dL (7-18); Bicarbonate 27 mmol/L (21-32); Bilirubin Total 0.3 mg/dL (0.2-1.0); Glucose Level 238 mg/dL (74-106); Potassium 4.1 mmol/L (3.5-5.1); Protein, Total 6.1 g/dL (6.4-8.2); Sodium Level 139 mmol/L (136-145)
--- NOTE | 2021-01-08 07:44 | RAD REPORT ---
EXAM DESCRIPTION: RAD - Chest Single View - 01/08/2021 6:39 am CLINICAL HISTORY: Follow up COVIDpneumonia COMPARISON: January 07, January 06 TECHNIQUE: AP portable chest image was obtained 01/08/2021 6:39 am . FINDINGS: ET tube remains in good position top of the aortic arch 4 cm above the irma. No change i n positioning of the left-sided PICC line. Partially imaged feeding tube is curled in the right upper quadrant the abdomen. Lung volumes are low. Dense left base pneumonia is not clearly different. Interstitial and alveolar o pacities are present elsewhere in the lung hogan to a far less greater degree. Right lung field leighton ins clear. There may be slight improvement in the upper left lung field. Heart and vasculature are normal. No measurable pleural effusion and no pneumothorax. No acute bony abnormality seen. No acute aortic findings suspected. IMPRESSION: Chest is not substantially different from the 2 preceding studies. There may be slight i mprovement in the upper left lung field. ET tube remains good position.
[2021-01-08] MEDS: PANTOPRAZOLE 40 MG INJ IVP SCH (08:58)
[2021-01-08] MEDS: GABAPENTIN 300 MG CAP PO SCH ×3 (08:59→20:12)
[2021-01-08] MEDS: CITALOPRAM 10 MG TABLET PO SCH (08:59)
[2021-01-08] MEDS: THIAMINE HCL 100 MG TABLET PO SCH (08:59)
[2021-01-08] MEDS: dexAMETHasone 10 MG/ML VIAL IV SCH ×2 (08:59→20:12)
[2021-01-08] MEDS: POLYETHYL GLY 3350 17 GM/DOSE PO PRN (08:59)
[2021-01-08] MEDS: FLUCONAZOLE 100 MG TAB PO SCH (08:59)
[2021-01-08] MEDS: CEFEPIME 1 GM/100 ML BAG IV SCH ×2 (09:00→20:11)
[2021-01-08] MEDS: ASPIRIN EC 81 MG TAB PO SCH (09:00)
[2021-01-08 09:37] LABS: Anisocytosis 1+; Blood Morphology Comment NOTED (NOT SEEN); Platelet Estimate ADEQ; Polychromasia 1+; White Blood Cell Scan OK (OK)
[2021-01-08] MEDS: MIDAZOLAM HCL 2 MG/2 ML INJ IV PRN ×2 (09:54→18:20)
--- NOTE | 2021-01-08 11:44 | P.PN ---
Subjective Date of Service: 01/08/21 Chief Complaint: Respiratory failure from coronavirus No change in patient's condition she is currently on SIMV 100% FiO2 still alert and responsive quiring intermittent sedation Review of Systems is unable to be obtained Physical Examination - Vital Signs Temperature: 97.1 F Blood Pressure: 110/69 Pulse: 86 Respirations: 18 Pulse Ox (%): 92 - Physical Exam General: Delirious, Unresponsive - Studies Laboratory Data (last 24 hrs) 01/08/21 05:09: Sodium 139, Potassium 4.1, BUN 23 H, Creatinine 0.47 L, Glucose 238 H, Magnesium 2.0, Total Bilirubin 0.3, AST 44 H, ALT 54, Alkaline Phosphatase 159 H 01/08/21 05:09: WBC 14.10 H, Hgb 9.3 L, Hct 27.3 L, Plt Count 168 Microbiology Data (last 24 hrs): 01/06/21 07:45 Sputum Sputum Gram Stain - Final 01/06/21 07:45 Sputum Culture & Sensitivity - Final Medications List Reviewed: Yes Assessment & Plan - Problems (Diagnosis) (1) Pneumonia due to COVID-19 virus Current Visit: Yes Status: Acute Plan: Respiratory failure no change in oxygenation patient is intermittently responsive requiring intermittent sedation 100% FiO2 white count is declining significant inflammatory changes the left base may be some improvement on the right side still very hypoxic arterial blood gases Physician Review: Patient Assessed, Agree with Above Assessment and Plan
[2021-01-08] MEDS: RIVAROXABAN 20 MG TABLET PO SCH (16:32)
[2021-01-08] MEDS: AMITRIPTYLINE 25 MG TAB PO SCH (20:12)
[2021-01-09] MEDS: LORazepam 2 MG/ML VIAL IV PRN ×6 (00:09→23:51)
[2021-01-09] MEDS: HYDROMORPHONE HCL 2 MG/ML inj IV PRN ×5 (00:39→21:48)
[2021-01-09 05:18] LABS: Absolute Lymphocytes (CBC) 0.3 K/uL (0.7-4.9); Basophils % 0.1 % (0-1.3); Hematocrit 28.1 % (36.0-45.0); Lymphocytes % 2.5 % (15.3-44.8); MPV 9.7 fL (7.6-11.3); RBC Red Blood Cell Count 3.27 M/uL (3.86-4.86)
[2021-01-09 05:33] LABS: ALT/SGPT 53 U/L (12-78); AST/SGOT 43 U/L (15-37); Albumin 2.1 g/dL (3.4-5.0); Alkaline Phosphatase 150 U/L (45-117); BUN Blood Urea Nitrogen 23 mg/dL (7-18); Bicarbonate 29 mmol/L (21-32); Bilirubin Total 0.3 mg/dL (0.2-1.0); Glucose Level 239 mg/dL (74-106); Magnesium 2.1 mg/dL (1.8-2.4); Potassium 4.4 mmol/L (3.5-5.1); Protein, Total 6.2 g/dL (6.4-8.2); Sodium Level 138 mmol/L (136-145)
[2021-01-09 05:43] LABS: Arterial Blood Carboxyhemoglob 1.4 % (0-1.5); Blood Gas Oxyhemoglobin 88.8 % (94-97); Blood O2 Saturation 91.1 % (92-98.5)
[2021-01-09] MEDS: INSULIN -REGULAR HUMAN 50 UNIT/0.5 ML ML SQ SCH ×5 (05:47→23:24)
--- NOTE | 2021-01-09 05:54 | P.PN ---
Subjective Date of Service: 01/09/21 Chief Complaint: Respiratory failure from coronavirus Physical Examination - Vital Signs Temperature: 97.2 F Blood Pressure: 109/61 Pulse: 81 Respirations: 23 Pulse Ox (%): 92 - Studies Laboratory Data (last 24 hrs) 01/09/21 04:25: Sodium 138, Potassium 4.4, BUN 23 H, Creatinine 0.42 L, Glucose 239 H, Magnesium 2.1, Total Bilirubin 0.3, AST 43 H, ALT 53, Alkaline Phosphatase 150 H 01/09/21 04:25: WBC 11.90 H D, Hgb 9.3 L, Hct 28.1 L, Plt Count 170 01/08/21 05:09: Sodium 139, Potassium 4.1, BUN 23 H, Creatinine 0.47 L, Glucose 238 H, Magnesium 2.0, Total Bilirubin 0.3, AST 44 H, ALT 54, Alkaline Phosphatase 159 H 01/08/21 05:09: WBC 14.10 H, Hgb 9.3 L, Hct 27.3 L, Plt Count 168 Microbiology Data (last 24 hrs): 01/06/21 07:45 Sputum Sputum Gram Stain - Final 01/06/21 07:45 Sputum Culture & Sensitivity - Final Medications List Reviewed: Yes Assessment & Plan Discharge Plan: LTAC Plan to discharge in: Greater than 2 days Physician Review Additional Text: COVID: positive CXR: COMPARISON: No comparisons FINDINGS: Portable technique limits examination quality. Moderately severe bilateral airspace opacities are present, greater on the right, most compatible with underlying COVID-19 infection. The heart is normal in size. No displaced fractures. Follow up CXR 01/09/2021: COMPARISON: January 08, 2021 FINDINGS: No change in the bilateral pulmonary opacities. Heart is normal size. Endotracheal tube has its tip at the level of the aortic arch. PICC line with its tip in the superior vena cava. Feeding tube coiled within the distal stomach. IMPRESSION: No change in the bilateral pulmonary opacities Physical Exam: GENERAL: Patient remains on the ventilator. Patient sedated. VITAL SIGNS: Reviewed HEENT: Neck supple LUNGS: Patient on ventilator 100% FiO2. HEART: Regular rate and rhythm, no appreciable gallops, rubs, murmurs or extra heart sounds ABDOMEN: Soft, nontender, and nondistended. Positive bowel sounds. No hepatosp lenomegaly was noted. EXTREMITIES: Without any cyanosis, clubbing, rash, lesions or peripheral edema. NEUROLOGIC: Patient remains on ventilator SKIN: Normal color, turgor and temperature. No ulcerations or rashes noted. Impression: Acute respiratory failure secondary to bilateral Covid pneumonia Hypertension Hyperlipidemia Depression with anxiety Chronic pain GERD Leukocytosis Plan: Acute respiratory failure secondary to bilateral Covid pneumonia: Patient remains on ventilator sedated. No significant change since yesterday. Patient still on max therapy on ventilator. FiO2 at 100%. Continue IV antibiotic therapycefepime, antifungalDiflucan, and steroidDecadron. Continue tube feeds. Sputum, blood cultures negative. No significant change in chest x-ray. Case discussed at length with pulmonology. Pulmonology suspects patient will likely not improve. Patient on max therapy. Discussed with son today. Son wants to continue with current management. If her condition worsens son may be agreeable to readdress advanced directives and plan of care. Continue with current medications. Will monitor closely. Consider LTAC if with more improvement. I will turn the service over to the hospitalist team tomorrow. I will go plan of care with him. Hypertension: Blood pressure slightly on the low side. Hyperlipidemia: Continue with Lipitor 40 mg daily. Depression with anxiety: Continue with Celexa 20 mg daily and Xanax as needed. Chronic pain: Continue with gabapentin 300 mg 3 times a day and Elavil 75 mg at bedtime. GERD: Continue with Protonix Leukocytosis: Improved. Likely related to above. Continue antibiotic and antifungal to cover for opportunistic infection Code Status: Patient full code DVT prophylaxis: Xarelto Advanced Care Planning-30 minutes: Case discussed with son. Continue with current management. Time Spent Managing Pts Care (In Minutes): 55
[2021-01-09] MEDS: CEFEPIME 1 GM/100 ML BAG IV SCH ×2 (08:44→20:19)
[2021-01-09] MEDS: PANTOPRAZOLE 40 MG INJ IVP SCH (08:44)
[2021-01-09] MEDS: dexAMETHasone 10 MG/ML VIAL IV SCH ×2 (08:44→20:21)
[2021-01-09] MEDS: FLUCONAZOLE 100 MG TAB PO SCH (08:45)
[2021-01-09] MEDS: GABAPENTIN 300 MG CAP PO SCH ×3 (08:45→20:19)
[2021-01-09] MEDS: THIAMINE HCL 100 MG TABLET PO SCH (08:45)
[2021-01-09] MEDS: ASPIRIN EC 81 MG TAB PO SCH (08:45)
[2021-01-09] MEDS: CITALOPRAM 10 MG TABLET PO SCH (08:45)
[2021-01-09] MEDS ORDERED: FUROSEMIDE 20 MG/ 2ML VIAL IV ONE (11:37)
--- NOTE | 2021-01-09 11:38 | P.PN ---
Subjective Date of Service: 01/09/21 Chief Complaint: Respiratory failure from coronavirus NC very hypoxic intermittently responsive Review of Systems is unable to be obtained Physical Examination - Vital Signs Temperature: 97.7 F Blood Pressure: 109/61 Pulse: 84 Respirations: 21 Pulse Ox (%): 92 - Physical Exam General: Unresponsive - Studies Laboratory Data (last 24 hrs) 01/09/21 04:25: Sodium 138, Potassium 4.4, BUN 23 H, Creatinine 0.42 L, Glucose 239 H, Magnesium 2.1, Total Bilirubin 0.3, AST 43 H, ALT 53, Alkaline Phosphatase 150 H 01/09/21 04:25: WBC 11.90 H D, Hgb 9.3 L, Hct 28.1 L, Plt Count 170 Microbiology Data (last 24 hrs): 01/06/21 07:45 Sputum Sputum Gram Stain - Final 01/06/21 07:45 Sputum Culture & Sensitivity - Final Medications List Reviewed: Yes Assessment & Plan - Problems (Diagnosis) (1) Pneumonia due to COVID-19 virus Current Visit: Yes Status: Acute Plan: Resp failure prog poor No change in oxygenation still n100%/labs reviewed/ VS stable/ daily CXRY/ WBC is declining/ lasix one dose Physician Review: Patient Assessed, Agree with Above Assessment and Plan
--- NOTE | 2021-01-09 14:35 | RAD REPORT ---
EXAM DESCRIPTION: [facility] Single View01/09/2021 2:16 pm CLINICAL HISTORY: Respiratory failure COMPARISON: January 08, 2021 FINDINGS: No change in the bilateral pulmonary opacities. Heart is normal size. Endotracheal tube has its tip at the level of the aortic arch. PICC line with its tip in the superior vena cava. Feeding tube coiled within the distal stomach. IMPRESSION: No change in the bilateral pulmonary opacities
[2021-01-09] MEDS: RIVAROXABAN 20 MG TABLET PO SCH (17:48)
[2021-01-09] MEDS: AMITRIPTYLINE 25 MG TAB PO SCH (20:20)
[2021-01-10] MEDS ORDERED: LACTULOSE 20 GM/30 ML UCUP PO ONE (00:42)
[2021-01-10] MEDS: HYDROMORPHONE HCL 2 MG/ML inj IV PRN ×6 (01:30→23:23)
[2021-01-10 05:26] LABS: Absolute Lymphocytes (CBC) 0.3 K/uL (0.7-4.9); Basophils % 0.2 % (0-1.3); Lymphocytes % 3.4 % (15.3-44.8); MPV 10.4 fL (7.6-11.3); RBC Red Blood Cell Count 3.22 M/uL (3.86-4.86)
[2021-01-10 05:44] LABS: ALT/SGPT 46 U/L (12-78); AST/SGOT 35 U/L (15-37); Albumin 2.1 g/dL (3.4-5.0); Alkaline Phosphatase 130 U/L (45-117); BUN Blood Urea Nitrogen 26 mg/dL (7-18); Bicarbonate 30 mmol/L (21-32); Bilirubin Total 0.3 mg/dL (0.2-1.0); Glucose Level 256 mg/dL (74-106); Potassium 3.9 mmol/L (3.5-5.1); Protein, Total 6.4 g/dL (6.4-8.2); Sodium Level 140 mmol/L (136-145)
[2021-01-10] MEDS ORDERED: POTASSIUM 25 MEQ EFFERV TAB PO ONE (05:51)
[2021-01-10] MEDS: INSULIN -REGULAR HUMAN 50 UNIT/0.5 ML ML SQ SCH ×3 (05:57→17:52)
[2021-01-10 06:07] LABS: Arterial Blood Carboxyhemoglob 1.4 % (0-1.5); Blood Gas Oxyhemoglobin 89.7 % (94-97); Blood O2 Saturation 92.1 % (92-98.5)
--- NOTE | 2021-01-10 07:29 | RAD REPORT ---
EXAM DESCRIPTION: RAD - Chest Single View - 01/10/2021 5:45 am CLINICAL HISTORY: resp failure COMPARISON: Abdomen 1 View (KUB) dated 01/10/2021; Chest Single View dated 01/09/2021; Chest Single View dated 01/08/2021; Chest Single View dated 01/07/2021 FINDINGS: Lines: Endotracheal tube at the top of the aortic arch. Left subclavian approach PICC with tip overlying the left brachiocephalic vein/proximal SVC. Lungs: Bilateral airspace disease again noted, eccentric to the left side. Pleural: No significant pleural effusions or pneumothorax. Cardiac: The heart size is within normal limits. Bones: No acute fractures. Other: IMPRESSION: No change compared with 01/09/2021. Bilateral airspace disease consistent with sequela o f pneumonia. Support apparatus in satisfactory position.
--- NOTE | 2021-01-10 07:31 | RAD REPORT ---
EXAM DESCRIPTION: RAD - Abdomen 1 View (KUB) - 01/10/2021 5:44 am CLINICAL HISTORY: Constipation, abdominal distension COMPARISON: Abdomen 1 View (KUB) dated 01/04/2021 FINDINGS: Nonobstructive bowel gas pattern. No acute osseous abnormality.Visualized lungs are unrema rkable.No abnormal calcifications. Moderate colonic stool burden. Weighted feeding tube in the distal stomach. IMPRESSION: Nonobstructive bowel gas pattern. Moderate pancolonic stool burden which could indicate constipation as noted in the indication. Weighted feeding tube in the stomach.
[2021-01-10] MEDS: CEFEPIME 1 GM/100 ML BAG IV SCH ×2 (08:40→20:10)
[2021-01-10] MEDS: dexAMETHasone 10 MG/ML VIAL IV SCH ×2 (08:40→20:10)
[2021-01-10] MEDS: PANTOPRAZOLE 40 MG INJ IVP SCH (08:40)
[2021-01-10] MEDS: GABAPENTIN 300 MG CAP PO SCH ×3 (08:41→20:10)
[2021-01-10] MEDS: CITALOPRAM 10 MG TABLET PO SCH (08:41)
[2021-01-10] MEDS: THIAMINE HCL 100 MG TABLET PO SCH (08:41)
[2021-01-10] MEDS: ASPIRIN EC 81 MG TAB PO SCH (08:41)
[2021-01-10] MEDS: FLUCONAZOLE 100 MG TAB PO SCH (08:41)
[2021-01-10] MEDS: POLYETHYL GLY 3350 17 GM/DOSE PO PRN (08:44)
[2021-01-10] MEDS: LORazepam 2 MG/ML VIAL IV PRN ×3 (09:16→23:23)
--- NOTE | 2021-01-10 11:55 | P.PN ---
Subjective Date of Service: 01/10/21 Chief Complaint: Respiratory failure from coronavirus [place] very hypoxic Review of Systems is unable to be obtained Physical Examination - Vital Signs Temperature: 96.1 F Blood Pressure: 95/62 Pulse: 81 Respirations: 23 Pulse Ox (%): 91 - Physical Exam General: Unresponsive - Studies Laboratory Data (last 24 hrs) 01/10/21 08:00: Potassium Cancelled 01/10/21 03:52: Sodium 140, Potassium 3.9, BUN 26 H, Creatinine 0.47 L, Glucose 256 H, Magnesium 2.0, Total Bilirubin 0.3, AST 35, ALT 46, Alkaline Phosphatase 130 H 01/10/21 03:52: WBC 8.70 D, Hgb 9.3 L, Hct 28.0 L, Plt Count 170 Medications List Reviewed: Yes Assessment & Plan - Problems (Diagnosis) (1) Pneumonia due to COVID-19 virus Current Visit: Yes Status: Acute Plan: Respiratory failure no change still very hypoxic chemistries reviewed white count is declining ILD on the x-ray Physician Review: Patient Assessed, Agree with Above Assessment and Plan
--- NOTE | 2021-01-10 15:04 | RAD REPORT ---
EXAM DESCRIPTION: RAD - Chest Single View - 01/10/2021 2:57 pm CLINICAL HISTORY: E-tube placement COMPARISON: January 10 TECHNIQUE: AP portable chest image was obtained 01/10/2021 2:57 pm . FINDINGS: Endotracheal tube tip is mid aortic arch level 3 cm above the irma. Tube is in good posi tion. Left upper extremity PICC line is mid SVC but the tip. Feeding tube is in place with the tip in the g astric antrum or duodenal bulb. Interstitial and alveolar opacities have not changed from earlier day examination. Heart size is norm al. No measurable pleural effusion and no pneumothorax. IMPRESSION: ET tube is in good position mid aortic arch level 3 cm above the irma. No new or progressive heart, vasculature or lung finding from earlier day study.
[2021-01-10] MEDS: RIVAROXABAN 20 MG TABLET PO SCH (17:51)
[2021-01-10] MEDS: AMITRIPTYLINE 25 MG TAB PO SCH (20:11)
[2021-01-10] MEDS ORDERED: BISACODYL 10 MG RECTAL SUPP PR ONE (23:46)
[2021-01-11] MEDS: INSULIN -REGULAR HUMAN 50 UNIT/0.5 ML ML SQ SCH ×4 (00:05→17:22)
[2021-01-11] MEDS: HYDROMORPHONE HCL 2 MG/ML inj IV PRN ×5 (02:45→20:28)
[2021-01-11 05:11] LABS: Absolute Lymphocytes (CBC) 0.3 K/uL (0.7-4.9); Basophils % 0.1 % (0-1.3); Hematocrit 27.4 % (36.0-45.0); Lymphocytes % 3.5 % (15.3-44.8); MPV 10.1 fL (7.6-11.3); RBC Red Blood Cell Count 3.17 M/uL (3.86-4.86)
[2021-01-11 05:25] LABS: ALT/SGPT 46 U/L (12-78); AST/SGOT 37 U/L (15-37); Albumin 1.9 g/dL (3.4-5.0); Alkaline Phosphatase 120 U/L (45-117); BUN Blood Urea Nitrogen 20 mg/dL (7-18); Bicarbonate 32 mmol/L (21-32); Bilirubin Total 0.3 mg/dL (0.2-1.0); Glucose Level 200 mg/dL (74-106); Magnesium 2.1 mg/dL (1.8-2.4); Potassium 4.7 mmol/L (3.5-5.1); Protein, Total 6.1 g/dL (6.4-8.2); Sodium Level 138 mmol/L (136-145)
[2021-01-11] MEDS: LORazepam 2 MG/ML VIAL IV PRN ×4 (06:17→20:28)
[2021-01-11 07:26] LABS: Arterial Blood Carboxyhemoglob 1.5 % (0-1.5); Blood Gas Oxyhemoglobin 89.8 % (94-97); Blood O2 Saturation 92.1 % (92-98.5)
[2021-01-11] MEDS: PANTOPRAZOLE 40 MG INJ IVP SCH (08:06)
[2021-01-11] MEDS: CEFEPIME 1 GM/100 ML BAG IV SCH (08:07)
[2021-01-11] MEDS: ASPIRIN EC 81 MG TAB PO SCH (08:07)
[2021-01-11] MEDS: dexAMETHasone 10 MG/ML VIAL IV SCH ×2 (08:07→20:30)
[2021-01-11] MEDS: CITALOPRAM 10 MG TABLET PO SCH (08:07)
[2021-01-11] MEDS: FLUCONAZOLE 100 MG TAB PO SCH (08:08)
[2021-01-11] MEDS: GABAPENTIN 300 MG CAP PO SCH (08:08)
[2021-01-11] MEDS: THIAMINE HCL 100 MG TABLET PO SCH (08:08)
--- NOTE | 2021-01-11 09:46 | P.PN ---
Date of Service: 01/10/21 Subjective Patient remains intubated. On 100% FiO2. Chest x-ray with severe inflammation diffusely. Maintaining oxygen saturations in the low 90s. Prognosis poor. Review of Systems 10-point ROS is otherwise unremarkable Physical Examination - Vital Signs Reviewed - Physical Exam General: Intubated and sedated Respiratory: Tachypneic and diminished but otherwise clear Cardiovascular: Regular rate/rhythm, Normal S1 S2 Gastrointestinal: Normal bowel sounds, No tenderness Neurological: Intubated and sedated Assessment & Plan - Problems (Diagnosis) (1) Pneumonia due to COVID-19 virus Current Visit: Yes Status: Acute - Plan Continue with plan of care as mentioned below: 1. Continue IV steroids and oxygen requirements 2. Continue monitoring inflammatory markers as needed 3. Repeat chest x-ray in 48-72 hr 4. Oxygen requirements are still significant. Patient prognosis is poor. 5. Pulmonary consultation appreciated 6. Could try a nebulizer treatments with severe inflammation maybe minimally helpful 7. Monitor labs 8. GI and DVT prophylaxis
--- NOTE | 2021-01-11 09:46 | P.PN ---
Date of Service: 01/11/21 Subjective Patient still critical with no significant changes. Family visits during the afternoons will discuss with with him regarding further plan of care. Review of Systems Unable to really obtain as patient is on the ventilator Physical Examination - Vital Signs Reviewed - Physical Exam General: Intubated and sedated Respiratory: Tachypneic and diminished but otherwise clear Cardiovascular: Regular rate/rhythm, Normal S1 S2 Gastrointestinal: Normal bowel sounds, No tenderness Neurological: Intubated and sedated Assessment & Plan - Problems (Diagnosis) (1) Pneumonia due to COVID-19 virus Current Visit: Yes Status: Acute - Plan Continue with plan of care as mentioned below: 1. Continue IV steroids and mechanical ventilation 2. Continue monitoring inflammatory markers as needed 3. X-ray just showing diffuse inflammatory changes. No pneumomediastinum noted or no pneumothorax. 4. Oxygen requirements are still significant. Patient prognosis is poor. 5. Pulmonary consultation appreciated 6. Continue supportive care while on the ventilator 7. Monitor labs 8. GI and DVT prophylaxis
[2021-01-11] MEDS: MIDAZOLAM HCL 2 MG/2 ML INJ IV PRN (12:01)
--- NOTE | 2021-01-11 12:34 | P.PN ---
Subjective Date of Service: 01/11/21 Chief Complaint: Respiratory failure from coronavirus No change patient no change patient continues to remain very hypoxic minimally responsive Review of Systems is unable to be obtained Physical Examination - Vital Signs Temperature: 97.3 F Blood Pressure: 120/66 Pulse: 86 Respirations: 29 Pulse Ox (%): 91 - Physical Exam General: Unresponsive - Studies Laboratory Data (last 24 hrs) 01/11/21 04:27: Sodium 138, Potassium 4.7, BUN 20 H, Creatinine 0.38 L, Glucose 200 H, Magnesium 2.1, Total Bilirubin 0.3, AST 37, ALT 46, Alkaline Phosphatase 120 H 01/11/21 04:27: WBC 8.10, Hgb 9.2 L, Hct 27.4 L, Plt Count 159 Medications List Reviewed: Yes Assessment & Plan - Problems (Diagnosis) (1) Pneumonia due to COVID-19 virus Current Visit: Yes Status: Acute Plan: Respiratory failure chest x-ray reviewed no significant change patient is on 100% FiO2 labs chest x-ray labs chest x-rays all reviewed DC cefepime Physician Review: Patient Assessed, Agree with Above Assessment and Plan
--- NOTE | 2021-01-11 13:32 | RAD REPORT ---
EXAM DESCRIPTION: RAD - Chest Single View - 01/11/2021 6:25 am CLINICAL HISTORY: resp failure, COVID pneumonia COMPARISON: Portable January 10 TECHNIQUE: AP portable chest image was obtained 01/11/2021 6:25 am . FINDINGS: Endotracheal tube is in place. Tip is top of the aortic arch 4 cm above the irma. This i s adequate positioning. Feeding tube is in place extending below the diaphragm, off the field of view . Left subclavian PICC line tip is in the mid SVC. Prominent lower left lung field pneumonia findings are present showing no improvement. Progression is unlikely but patient can be monitored with follow-up imaging as warranted. No new or progressive rig ht lung field finding. Heart and vasculature are normal. No measurable pleural effusion and no pneumothorax. IMPRESSION: ET tube is in good position 4 cm above the irma. Feeding tube extends below the diaphr agm, off the field of view. No improvement in the lower left lung field pneumonia. Slight worsening is not excluded and patient n eeds ongoing monitoring.
[2021-01-11] MEDS: RIVAROXABAN 20 MG TABLET PO SCH (17:22)
[2021-01-11] MEDS: FAMOTIDINE 20 MG TAB PO SCH (20:30)
[2021-01-12] MEDS: LORazepam 2 MG/ML VIAL IV PRN ×6 (00:30→21:09)
[2021-01-12] MEDS: HYDROMORPHONE HCL 2 MG/ML inj IV PRN ×6 (00:30→21:08)
[2021-01-12] MEDS: INSULIN -REGULAR HUMAN 50 UNIT/0.5 ML ML SQ SCH ×5 (00:41→23:56)
[2021-01-12] MEDS: VITAL HP 1,000 ML BOT RTH SCH (00:42)
[2021-01-12 05:20] LABS: BUN Blood Urea Nitrogen 23 mg/dL (7-18); Bicarbonate 31 mmol/L (21-32); Ferritin 1346.2 ng/mL (8-388); Glucose Level 283 mg/dL (74-106); Magnesium 2.1 mg/dL (1.8-2.4); Phosphorus 2.8 mg/dL (2.5-4.9); Potassium 4.7 mmol/L (3.5-5.1); Sodium Level 134 mmol/L (136-145)
[2021-01-12 05:41] LABS: Absolute Lymphocytes (CBC) 0.8 K/uL (0.7-4.9); Basophils % 0.5 % (0-1.3); Hematocrit 32.5 % (36.0-45.0); Lymphocytes % 7.1 % (15.3-44.8); MPV 10.5 fL (7.6-11.3); RBC Red Blood Cell Count 3.77 M/uL (3.86-4.86)
--- NOTE | 2021-01-12 07:57 | RAD REPORT ---
[facility] 5:40 am CLINICAL HISTORY: Respiratory failure COMPARISON: January 11, 2021 FINDINGS: Endotracheal tube has its tip at the top of the aortic arch. No significant change in bilateral pulmonary opacities left greater than right. Heart is normal size. A feeding tube enters the stomach. Tip is not included in the field of view The heart is normal size IMPRESSION: No significant change in the bilateral pulmonary opacities
[2021-01-12] MEDS: ASPIRIN EC 81 MG TAB PO SCH ×2 (08:04→09:00)
[2021-01-12] MEDS: THIAMINE HCL 100 MG TABLET PO SCH (08:04)
[2021-01-12] MEDS: FLUCONAZOLE 100 MG TAB PO SCH (08:04)
[2021-01-12] MEDS: CITALOPRAM 10 MG TABLET PO SCH (08:04)
[2021-01-12] MEDS: dexAMETHasone 10 MG/ML VIAL IV SCH ×2 (08:05→20:03)
[2021-01-12] MEDS: FAMOTIDINE 20 MG TAB PO SCH ×2 (08:06→20:04)
[2021-01-12] MEDS: MIDAZOLAM HCL 2 MG/2 ML INJ IV PRN (08:22)
--- NOTE | 2021-01-12 12:29 | P.PN ---
Subjective Date of Service: 01/12/21 Chief Complaint: Respiratory failure from coronavirus No change patient continues to remain hypoxic requiring as needed sedation Review of Systems is unable to be obtained Physical Examination - Vital Signs Temperature: 96.7 F Blood Pressure: 163/85 Pulse: 101 Respirations: 20 Pulse Ox (%): 89 - Physical Exam General: Unresponsive Respiratory: Diminished - Studies Laboratory Data (last 24 hrs) 01/12/21 04:35: Sodium 134 L, Potassium 4.7, BUN 23 H, Creatinine 0.48 L, Glucose 283 H, Phosphorus 2.8, Magnesium 2.1 01/12/21 04:35: WBC 11.40 H D, Hgb 10.8 L, Hct 32.5 L D, Plt Count 188 Medications List Reviewed: Yes Assessment & Plan - Problems (Diagnosis) (1) Pneumonia due to COVID-19 virus Current Visit: Yes Status: Acute Plan: Respiratory failure no change still on 100% FiO2 labs medication reviewed prognosis poor patient has made no significant improvement labs chest x-rays all reviewed blood pressure elevated start on IV Lasix to milligrams daily Physician Review: Patient Assessed, Agree with Above Assessment and Plan
[2021-01-12] MEDS: FUROSEMIDE 20 MG/ 2ML VIAL IV SCH (15:27)
[2021-01-12] MEDS: RIVAROXABAN 20 MG TABLET PO SCH (16:43)
[2021-01-13] MEDS: HYDROMORPHONE HCL 2 MG/ML inj IV PRN ×7 (01:00→23:06)
[2021-01-13] MEDS: LORazepam 2 MG/ML VIAL IV PRN ×7 (01:01→23:06)
[2021-01-13] MEDS: MIDAZOLAM HCL 2 MG/2 ML INJ IV PRN ×2 (04:27→18:38)
[2021-01-13] MEDS: INSULIN -REGULAR HUMAN 50 UNIT/0.5 ML ML SQ SCH ×4 (05:34→23:58)
--- NOTE | 2021-01-13 07:12 | RAD REPORT ---
EXAM DESCRIPTION: [facility] Single View01/13/2021 6:56 am CLINICAL HISTORY: Respiratory failure COMPARISON: January 12, 2021 FINDINGS: Tip of an endotracheal tube at top of the aortic arch. A enters stomach. The tip is not in cluded the field No significant change in the bilateral pulmonary opacities. PICC line in place IMPRESSION: No significant change in the bilateral pulmonary opacities
[2021-01-13] MEDS: FAMOTIDINE 20 MG TAB PO SCH ×2 (07:57→20:09)
[2021-01-13] MEDS: FLUCONAZOLE 100 MG TAB PO SCH (07:57)
[2021-01-13] MEDS: ASPIRIN EC 81 MG TAB PO SCH (07:58)
[2021-01-13] MEDS: FUROSEMIDE 20 MG/ 2ML VIAL IV SCH (07:58)
[2021-01-13] MEDS: dexAMETHasone 10 MG/ML VIAL IV SCH ×2 (07:58→20:09)
[2021-01-13] MEDS: THIAMINE HCL 100 MG TABLET PO SCH (07:58)
--- NOTE | 2021-01-13 12:24 | P.PN ---
Subjective Date of Service: 01/13/21 Chief Complaint: Respiratory failure from coronavirus Patient is minimally responsive at times will obey commands using as needed sedation still 100% FiO2 Review of Systems is unable to be obtained Physical Examination - Vital Signs Temperature: 97.2 F Blood Pressure: 89/53 Pulse: 91 Respirations: 25 Pulse Ox (%): 90 - Physical Exam General: Unresponsive - Studies Medications List Reviewed: Yes Assessment & Plan - Problems (Diagnosis) (1) Pneumonia due to COVID-19 virus Current Visit: Yes Status: Acute Plan: Condition stable still on 100% FiO2 patient does obey commands at times requiring as needed sedation continue with supportive therapy no change significant pulmonary fibrosis problem prognosis poor Physician Review: Patient Assessed, Agree with Above Assessment and Plan
[2021-01-13] MEDS: RIVAROXABAN 20 MG TABLET PO SCH (16:39)
[2021-01-13] MEDS: VITAL HP 1,000 ML BOT RTH SCH (20:44)
[2021-01-14] MEDS: HYDROMORPHONE HCL 2 MG/ML inj IV PRN ×6 (02:54→21:50)
[2021-01-14] MEDS: LORazepam 2 MG/ML VIAL IV PRN ×6 (02:54→23:51)
[2021-01-14] MEDS: INSULIN -REGULAR HUMAN 50 UNIT/0.5 ML ML SQ SCH ×4 (05:43→23:45)
[2021-01-14 05:56] LABS: Absolute Lymphocytes (CBC) 0.4 K/uL (0.7-4.9); Basophils % 0.2 % (0-1.3); Hematocrit 28.9 % (36.0-45.0); Lymphocytes % 4.9 % (15.3-44.8); RBC Red Blood Cell Count 3.32 M/uL (3.86-4.86)
[2021-01-14 06:24] LABS: BUN Blood Urea Nitrogen 28 mg/dL (7-18); Bicarbonate 32 mmol/L (21-32); Ferritin 1083.3 ng/mL (8-388); Glucose Level 304 mg/dL (74-106); Magnesium 2.2 mg/dL (1.8-2.4); Phosphorus 3.2 mg/dL (2.5-4.9); Potassium 4.3 mmol/L (3.5-5.1); Sodium Level 140 mmol/L (136-145)
[2021-01-14] MEDS: ASPIRIN 81 MG CHEWABLE TABLET PO SCH (08:45)
[2021-01-14] MEDS: FLUCONAZOLE 100 MG TAB PO SCH (08:45)
[2021-01-14] MEDS: dexAMETHasone 10 MG/ML VIAL IV SCH ×2 (08:46→20:48)
[2021-01-14] MEDS: FAMOTIDINE 20 MG TAB PO SCH ×2 (08:46→20:47)
[2021-01-14] MEDS: THIAMINE HCL 100 MG TABLET PO SCH (08:47)
[2021-01-14 08:48] LABS: Blood Morphology Comment NOT SEEN (NOT SEEN); Platelet Estimate ADEQ; Platelets, Giant NOTED; White Blood Cell Scan OK (OK)
[2021-01-14] MEDS: FUROSEMIDE 20 MG/ 2ML VIAL IV SCH (09:00)
--- NOTE | 2021-01-14 10:31 | P.PN ---
Date of Service: 01/13/21 Subjective Spoke with daughter was at bedside. She understands her mother's poor prognosis. Her mother still wakes up and follows some commands so she is hopeful that her mother will get better. I did explain to her the degree of inflammation in the lungs and how it is almost impossible to transfer with her oxygen requirements at this time. She did inquire about lung transplant and ECMO machine. At this time, she is currently not at a point were we can transfer her. Review of Systems 10-point ROS is otherwise unremarkable Physical Examination - Vital Signs Reviewed - Physical Exam General: Intubated and sedated; opens eyes to command HEENT: ET tube is in place; Respiratory: Tachypneic and diminished but otherwise clear Cardiovascular: Regular rate/rhythm, Normal S1 S2 Gastrointestinal: Normal bowel sounds, No tenderness Neurological: Intubated and sedated; moves her extremities and follows some commands Skin: No abnormalities noted Musculoskeletal: No joint swelling Assessment & Plan - Problems (Diagnosis) (1) Pneumonia due to COVID-19 virus Current Visit: Yes Status: Acute - Plan Continue with plan of care as mentioned below: 1. Continue IV steroids and oxygen requirements 2. Continue monitoring inflammatory markers as needed 3. Chest x-ray with diffuse inflammatory changes 4. Oxygen requirements are still significant. Patient prognosis is poor. Spoke with family regarding this and they understand 5. Pulmonary consultation appreciated 6. Could try a nebulizer treatments with severe inflammation maybe minimally helpful; 7. Monitor labs 8. GI and DVT prophylaxis
--- NOTE | 2021-01-14 10:38 | P.PN ---
Date of Service: 01/12/21 Subjective No new changes. Poor prognosis. Review of Systems Unable to really obtain as patient is on the ventilator Physical Examination - Vital Signs Reviewed - Physical Exam General: Intubated and sedated Respiratory: Tachypneic and diminished but otherwise clear Cardiovascular: Regular rate/rhythm, Normal S1 S2 Gastrointestinal: Normal bowel sounds, No tenderness Neurological: Intubated and sedated Assessment & Plan - Problems (Diagnosis) (1) Pneumonia due to COVID-19 virus Current Visit: Yes Status: Acute - Plan Continue with plan of care as mentioned below: 1. Continue IV steroids and mechanical ventilation 2. Continue monitoring inflammatory markers as needed 3. X-ray just showing diffuse inflammatory changes. No pneumomediastinum noted or no pneumothorax. 4. Oxygen requirements are still significant. Patient prognosis is poor. 5. Pulmonary consultation appreciated 6. Continue supportive care while on the ventilator 7. Monitor labs 8. GI and DVT prophylaxis
[2021-01-14] MEDS: FENTANYL CITR 100 MCG/2 ML IV PRN ×2 (14:50→20:42)
[2021-01-14] MEDS: RIVAROXABAN 20 MG TABLET PO SCH (16:58)
--- NOTE | 2021-01-14 17:05 | P.PN ---
Subjective Date of Service: 01/14/21 Chief Complaint: Respiratory failure from coronavirus Patient is minimally responsive at times no change requiring intermittent sedation maximum oxygen Review of Systems 10-point ROS is otherwise unremarkable Physical Examination - Vital Signs Temperature: 97.2 F Blood Pressure: 102/59 Pulse: 78 Respirations: 24 Pulse Ox (%): 90 - Physical Exam General: Unresponsive - Studies Laboratory Data (last 24 hrs) 01/14/21 05:00: Sodium 140, Potassium 4.3, BUN 28 H, Creatinine 0.44 L, Glucose 304 H, Phosphorus 3.2, Magnesium 2.2 01/14/21 05:00: WBC 7.20 D, Hgb 9.5 L, Hct 28.9 L, Plt Count 159 Medications List Reviewed: Yes Assessment & Plan - Problems (Diagnosis) (1) Pneumonia due to COVID-19 virus Current Visit: Yes Status: Acute Plan: Respiratory failure no change in patient's condition still on maximum oxygen agitated requiring sedation prognosis poor we'll discuss with the son regarding withdrawal of care continues to remain hypoxic no change for the past few weeks Physician Review: Patient Assessed, Agree with Above Assessment and Plan
[2021-01-14] MEDS: MIDAZOLAM HCL 2 MG/2 ML INJ IV PRN (20:42)
[2021-01-14] MEDS: VITAL HP 1,000 ML BOT RTH SCH (21:03)
[2021-01-15] MEDS: FENTANYL CITR 100 MCG/2 ML IV PRN ×2 (01:08→09:10)
[2021-01-15] MEDS: LORazepam 2 MG/ML VIAL IV PRN ×4 (01:55→10:40)
[2021-01-15] MEDS: HYDROMORPHONE HCL 2 MG/ML inj IV PRN ×6 (01:55→16:51)
[2021-01-15 05:36] LABS: Absolute Lymphocytes (CBC) 0.6 K/uL (0.7-4.9); Basophils % 0.1 % (0-1.3); Hematocrit 32.1 % (36.0-45.0); MPV 9.9 fL (7.6-11.3); RBC Red Blood Cell Count 3.68 M/uL (3.86-4.86)
[2021-01-15] MEDS: INSULIN -REGULAR HUMAN 50 UNIT/0.5 ML ML SQ SCH ×4 (06:01→23:40)
[2021-01-15 06:04] LABS: Arterial Blood Carboxyhemoglob 1.7 % (0-1.5); Blood Gas Oxyhemoglobin 84.2 % (94-97); Blood O2 Saturation 86.6 % (92-98.5)
[2021-01-15 06:26] LABS: ALT/SGPT 50 U/L (12-78); AST/SGOT 36 U/L (15-37); Albumin 1.8 g/dL (3.4-5.0); Alkaline Phosphatase 125 U/L (45-117); BUN Blood Urea Nitrogen 30 mg/dL (7-18); Bicarbonate 32 mmol/L (21-32); Bilirubin Total 0.3 mg/dL (0.2-1.0); Glucose Level 332 mg/dL (74-106); Potassium 4.5 mmol/L (3.5-5.1); Protein, Total 6.8 g/dL (6.4-8.2); Sodium Level 142 mmol/L (136-145)
[2021-01-15] MEDS: THIAMINE HCL 100 MG TABLET PO SCH (08:00)
[2021-01-15] MEDS: FUROSEMIDE 20 MG/ 2ML VIAL IV SCH (08:00)
[2021-01-15] MEDS: dexAMETHasone 10 MG/ML VIAL IV SCH ×2 (08:01→21:10)
[2021-01-15] MEDS: ASPIRIN 81 MG CHEWABLE TABLET PO SCH (08:01)
[2021-01-15] MEDS: FAMOTIDINE 20 MG TAB PO SCH ×2 (08:01→21:11)
[2021-01-15] MEDS: HALOPERIDOL LACT 5 MG/ML INJ IV PRN (08:01)
--- NOTE | 2021-01-15 08:06 | P.PN ---
Date of Service: 01/14/21 Subjective Spoke with son today; understands her mothers poor prognosis; will discuss with siblings regarding her code status; at this time still wanting to proceed with aggressive care; more hypoxic and increased PEEP and O2 requirements Review of Systems Unable to really obtain as patient is on the ventilator Physical Examination - Vital Signs Reviewed - Physical Exam General: Intubated and sedated Respiratory: Tachypneic and diminished but otherwise clear Cardiovascular: Regular rate/rhythm, Normal S1 S2 Gastrointestinal: Normal bowel sounds, No tenderness Neurological: Intubated and sedated Assessment & Plan - Problems (Diagnosis) (1) Pneumonia due to COVID-19 virus Current Visit: Yes Status: Acute - Plan Continue with plan of care as mentioned below: 1. Continue IV steroids and mechanical ventilation 2. Continue monitoring inflammatory markers as needed 3. X-ray just showing diffuse inflammatory changes. No pneumomediastinum noted or no pneumothorax. 4. Oxygen requirements are still significant. Patient prognosis is poor. 5. Pulmonary consultation appreciated 6. Continue supportive care while on the ventilator 7. Monitor labs 8. GI and DVT prophylaxis
--- NOTE | 2021-01-15 08:41 | RAD REPORT ---
EXAM DESCRIPTION: RAD - Chest Single View - 01/15/2021 6:27 am CLINICAL HISTORY: Covid Pneumonia COMPARISON: Chest Single View dated 01/13/2021; Chest Single View dated 01/12/2021; Chest Single Vie w dated 01/11/2021; Chest Single View dated 01/10/2021 FINDINGS: Lines: Left subclavian approach PICC in similar position. Endotracheal tube at the aortic arch. Weighted feeding tube below the diaphragm Lungs: Similar widespread bilateral airspace disease, left eccentric. Pleural: No significant pleural effusions or pneumothorax. Cardiac: The heart size is within normal limits. Bones: No acute fractures. Other: IMPRESSION: Similar aeration of the lungs in bilateral airspace disease, left eccentric. This presum ably represents sequela of pneumonia. Support apparatus in satisfactory position.
[2021-01-15 08:56] LABS: Platelet Estimate ADEQ
[2021-01-15 08:57] LABS: Anisocytosis SLIGHT; Blood Morphology Comment NOTED (NOT SEEN); Platelets, Giant PRESENT; Polychromasia SLIGHT
[2021-01-15] MEDS: MIDAZOLAM HCL 2 MG/2 ML INJ IV PRN (09:00)
--- NOTE | 2021-01-15 10:37 | P.PN ---
Subjective Date of Service: 01/15/21 Chief Complaint: Respiratory failure from coronavirus Patient is more agitated today much less responsive requiring sedation every 2 hours still continues to remain very hypoxic Review of Systems is unable to be obtained Physical Examination - Vital Signs Temperature: 97.2 F Blood Pressure: 102/59 Pulse: 78 Respirations: 24 Pulse Ox (%): 90 - Physical Exam General: Delirious, Unresponsive - Studies Laboratory Data (last 24 hrs) 01/15/21 04:40: Sodium 142, Potassium 4.5, BUN 30 H, Creatinine 0.46 L, Glucose 332 H, Total Bilirubin 0.3, AST 36, ALT 50, Alkaline Phosphatase 125 H 01/15/21 04:40: WBC 10.60 D, Hgb 10.6 L, Hct 32.1 L, Plt Count 179 Medications List Reviewed: Yes Assessment & Plan - Problems (Diagnosis) (1) Pneumonia due to COVID-19 virus Current Visit: Yes Status: Acute Plan: Respiratory failure no change discussed with the son regarding DNR and withdrawal of care labs chemistries reviewed chest x-ray severe coronavirus pneumonia no change left lung is worse in the right Physician Review: Patient Assessed, Agree with Above Assessment and Plan
[2021-01-15] MEDS: RIVAROXABAN 20 MG TABLET PO SCH (17:06)
[2021-01-15] MEDS: HYDROMORPHONE HCL 1 MG/ML INJ ONE ×2 (20:46→21:05)
[2021-01-15] MEDS ORDERED: HYDROMORPHONE HCL 1 MG/ML INJ ONE (23:41)
[2021-01-16] MEDS ORDERED: HYDROMORPHONE HCL 1 MG/ML INJ ONE ×2 (02:44→04:57)
[2021-01-16] MEDS: INSULIN -REGULAR HUMAN 50 UNIT/0.5 ML ML SQ SCH ×4 (05:57→23:40)
[2021-01-16] MEDS: LORazepam 2 MG/ML VIAL IV PRN (06:54)
[2021-01-16] MEDS: HYDROMORPHONE HCL 2 MG/ML inj IV PRN ×6 (07:53→20:52)
[2021-01-16] MEDS: dexAMETHasone 10 MG/ML VIAL IV SCH ×2 (08:16→20:24)
[2021-01-16] MEDS: THIAMINE HCL 100 MG TABLET PO SCH (08:17)
[2021-01-16] MEDS: FUROSEMIDE 20 MG/ 2ML VIAL IV SCH (08:17)
[2021-01-16] MEDS: ASPIRIN 81 MG CHEWABLE TABLET PO SCH (08:17)
[2021-01-16] MEDS: FAMOTIDINE 20 MG TAB PO SCH ×2 (08:17→20:25)
[2021-01-16] MEDS: MIDAZOLAM HCL 2 MG/2 ML INJ IV PRN (08:18)
--- NOTE | 2021-01-16 09:52 | P.PN ---
Date of Service: 01/15/21 Subjective Met with the family. All the children were there. After a long discussion they were in agreement with a DNAR. Plan is to monitor her for the next couple of days. Possible withdrawal of care at that time. Review of Systems Unable to really obtain as patient is on the ventilator Physical Examination - Vital Signs Reviewed - Physical Exam General: Intubated and sedated Respiratory: Tachypneic and diminished but otherwise clear Cardiovascular: Regular rate/rhythm, Normal S1 S2 Gastrointestinal: Normal bowel sounds, No tenderness Neurological: Intubated and sedated Assessment & Plan - Problems (Diagnosis) (1) Pneumonia due to COVID-19 virus Current Visit: Yes Status: Acute - Plan Continue with plan of care as mentioned below: 1. Continue IV steroids and mechanical ventilation 2. Continue monitoring inflammatory markers as needed 3. X-ray just showing diffuse inflammatory changes. No pneumomediastinum noted or no pneumothorax. 4. Oxygen requirements are still significant. Patient prognosis is poor. Family has agreed with a do not attempt resuscitation. 5. Pulmonary consultation appreciated 6. Continue supportive care while on the ventilator; considering withdrawal of patient is not improving over the next 48 hr. 7. Monitor labs 8. GI and DVT prophylaxis
[2021-01-16] MEDS: MIDAZOLAM HCL 100 MG in NA CHLORIDE 0.9% 80 ML IV SCH ×2 (11:03→23:06)
--- NOTE | 2021-01-16 11:11 | RAD REPORT ---
EXAM DESCRIPTION: RAD - Chest Single View - 01/16/2021 10:36 am CLINICAL HISTORY: ETT placement Chest pain. COMPARISON: Chest Single View dated 01/15/2021; Chest Single View dated 01/13/2021; Chest Single Vie w dated 01/12/2021; Chest Single View dated 01/11/2021 FINDINGS: Portable technique limits examination quality. Tip of the endotracheal tube is at the level of the superior aortic arch. Bilateral pulmonary opaciti es are present, greater on the left, mildly worsened since comparative study. Enteric tube descends i nto the upper abdomen.Left-sided PICC line has tip the SVC.
[2021-01-16] MEDS ORDERED: D50W 25 GM/50 ML SYRINGE IV PRN (15:25)
[2021-01-16] MEDS ORDERED: GLUCAGON 1 MG/VIAL IM PRN (15:25)
[2021-01-16] MEDS: RIVAROXABAN 20 MG TABLET PO SCH (17:22)
[2021-01-16] MEDS ORDERED: INSULIN GLARGINE 100 UNITS/ML SQ SCH (21:00)
--- NOTE | 2021-01-16 22:34 | P.PN ---
Date of Service: 01/16/21 Subjective Family was able to visit today. Possibility of withdrawal of care in the morning. No significant improvement at this time. Review of Systems Unable to really obtain as patient is on the ventilator Physical Examination - Vital Signs Reviewed - Physical Exam General: Intubated and sedated HEENT: ET tube and NG tube in place Respiratory: Tachypneic and diminished but otherwise clear Cardiovascular: Regular rate/rhythm, Normal S1 S2 Gastrointestinal: Normal bowel sounds, No tenderness Neurological: Intubated and sedated Extremity: No clubbing no cyanosis or edema Assessment & Plan - Problems (Diagnosis) (1) Pneumonia due to COVID-19 virus Current Visit: Yes Status: Acute - Plan Continue with plan of care as mentioned below: 1. Continue IV steroids and mechanical ventilation 2. Continue monitoring labs and ABG 3. X-ray just showing diffuse inflammatory changes. No pneumomediastinum noted or no pneumothorax. 4. Oxygen requirements are still significant. Patient prognosis is poor. Family has agreed with a do not attempt resuscitation. 5. Pulmonary consultation appreciated 6. Continue supportive care while on the ventilator; considering withdrawal of patient is not improving over the next 48 hr. 7. GI and DVT prophylaxis
[2021-01-17] MEDS: HYDROMORPHONE HCL 2 MG/ML inj IV PRN ×8 (00:15→21:05)
[2021-01-17 04:52] LABS: Absolute Lymphocytes (CBC) 0.7 K/uL (0.7-4.9); Hematocrit 34.3 % (36.0-45.0); Lymphocytes % 5.7 % (15.3-44.8); RBC Red Blood Cell Count 3.87 M/uL (3.86-4.86)
[2021-01-17] MEDS: INSULIN -REGULAR HUMAN 50 UNIT/0.5 ML ML SQ SCH ×3 (05:56→17:29)
[2021-01-17 06:12] LABS: ALT/SGPT 52 U/L (12-78); AST/SGOT 34 U/L (15-37); Albumin 1.7 g/dL (3.4-5.0); Alkaline Phosphatase 133 U/L (45-117); BUN Blood Urea Nitrogen 35 mg/dL (7-18); Bicarbonate 36 mmol/L (21-32); Bilirubin Total 0.4 mg/dL (0.2-1.0); Ferritin 1105.2 ng/mL (8-388); Glucose Level 353 mg/dL (74-106); Magnesium 2.2 mg/dL (1.8-2.4); NT PRO-BNP 438 pg/mL (<125); Potassium 4.3 mmol/L (3.5-5.1); Protein, Total 6.9 g/dL (6.4-8.2); Sodium Level 145 mmol/L (136-145)
[2021-01-17 06:18] LABS: Blood O2 Saturation 84.3 % (92-98.5)
[2021-01-17 06:19] LABS: Arterial Blood Carboxyhemoglob 1.8 % (0-1.5); Blood Gas Oxyhemoglobin 81.9 % (94-97)
[2021-01-17] MEDS: FUROSEMIDE 20 MG/ 2ML VIAL IV SCH (07:52)
[2021-01-17] MEDS: ASPIRIN 81 MG CHEWABLE TABLET PO SCH (07:52)
[2021-01-17] MEDS: THIAMINE HCL 100 MG TABLET PO SCH (07:52)
[2021-01-17] MEDS: dexAMETHasone 10 MG/ML VIAL IV SCH ×2 (07:52→21:01)
[2021-01-17] MEDS: FAMOTIDINE 20 MG TAB PO SCH ×2 (07:53→21:02)
--- NOTE | 2021-01-17 09:00 | P.PN ---
Subjective Date of Service: 01/17/21 Chief Complaint: Respiratory failure from coronavirus Subjective: Other (No changes. Patient remains on the ventilator at 100 percent FiO2.) Physical Examination - Vital Signs Temperature: 98.4 F Blood Pressure: 148/88 Pulse: 115 Respirations: 18 Pulse Ox (%): 88 - Studies Laboratory Data (last 24 hrs) 01/17/21 04:35: Sodium 145, Potassium 4.3, BUN 35 H, Creatinine 0.46 L, Glucose 353 H, Magnesium 2.2, Total Bilirubin 0.4, AST 34, ALT 52, Alkaline Phosphatase 133 H 01/17/21 04:35: WBC 12.20 H D, Hgb 11.2 L, Hct 34.3 L, Plt Count 206 Medications List Reviewed: Yes Assessment & Plan Discharge Plan: Home Plan to discharge in: Greater than 2 days Physician Review Additional Text: COVID: positive CXR: COMPARISON: No comparisons FINDINGS: Portable technique limits examination quality. Moderately severe bilateral airspace opacities are present, greater on the right, most compatible with underlying COVID-19 infection. The heart is normal in size. No displaced fractures. Follow up CXR 01/16/2021: COMPARISON: Chest Single View dated 01/15/2021; Chest Single View dated 01/13/2021; Chest Single View dated 01/12/2021; Chest Single View dated 01/11/2021 FINDINGS: Portable technique limits examination quality. Tip of the endotracheal tube is at the level of the superior aortic arch. Bilateral pulmonary opacities are present, greater on the left, mildly worsened since comparative study. Enteric tube descends into the upper abdomen.Left-sided PICC line has tip the SVC. Physical Exam: GENERAL: Patient remains on the ventilator. Patient sedated. VITAL SIGNS: Reviewed HEENT: Neck supple LUNGS: Patient on ventilator 100% FiO2. HEART: Sinus tachycardia noted rate around 1 10-1 20 ABDOMEN: Soft, nontender, and nondistended. Positive bowel sounds. No hepatosplenomegaly was noted. EXTREMITIES: Without any cyanosis, clubbing, rash, lesions or peripheral edema. NEUROLOGIC: Patient remains on ventilator SKIN: Normal color, turgor and temperature. No ulcerations or rashes noted. Impression: Acute respiratory failure secondary to bilateral Covid pneumonia Hypertension Hyperlipidemia Depression with anxiety Chronic pain GERD Diabetes mellitus type 2 Leukocytosis Plan: Acute respiratory failure secondary to bilateral Covid pneumonia: Patient remains on the ventilator at 100% FiO2. Patient on maximum therapy. Patient requires IV Versed drip due to agitation. X-ray still shows no significant improvement. Patient with poor prognosis. Spoke with hospitalist at length last night. Hospitalist reports patient now DO NOT RESUSCITATE. Family is considering withdrawal of care within the next 48 hours. Will discuss with family concerning plan. Hypertension: Continue to monitor blood pressure. If elevated will consider adding medication. Hyperlipidemia: No longer on statin medication Depression with anxiety: As needed medication provided. Chronic pain: As needed medication provided. GERD: Currently on Pepcid Diabetes mellitus type 2: Continue Lantus. Will adjust accordingly. Leukocytosis: No longer on antibiotic or antifungal medication. Code Status: This was readdressed last week. Patient now DO NOT RESUSCITATE. DVT prophylaxis: Xarelto Advanced Care Planning-30 minutes: We will discuss plan of care with son. Hospitalist reports family considering withdrawal of care. Time Spent Managing Pts Care (In Minutes): 55
--- NOTE | 2021-01-17 09:14 | RAD REPORT ---
EXAM DESCRIPTION: RAD - Chest Single View - 01/17/2021 5:14 am CLINICAL HISTORY: pneumonia Chest pain. COMPARISON: Chest Single View dated 01/16/2021; Chest Single View dated 01/15/2021; Chest Single Vie w dated 01/13/2021; Chest Single View dated 01/12/2021 FINDINGS: Portable technique limits examination quality. Tip of the endotracheal tube is at the level of the superior aortic arch. Enteric tube descends into the upper abdomen. Left-sided PICC line has tip in the SVC. Moderate bilateral pulmonary opacities, g reater on the left, appear unchanged. The heart is normal in size. IMPRESSION: Stable chest since 01/16/2021.
[2021-01-17] MEDS: MIDAZOLAM HCL 100 MG in NA CHLORIDE 0.9% 80 ML IV SCH ×2 (11:05→21:00)
--- NOTE | 2021-01-17 12:36 | P.PN ---
Subjective Date of Service: 01/17/21 Chief Complaint: Respiratory failure from coronavirus The patient is not doing well on ventilator quadrant significant amount of sedation said on 100% FiO2 Review of Systems is unable to be obtained Physical Examination - Vital Signs Temperature: 98.4 F Blood Pressure: 148/88 Pulse: 115 Respirations: 33 Pulse Ox (%): 88 - Physical Exam General: Unresponsive, Comatose - Studies Laboratory Data (last 24 hrs) 01/17/21 04:35: Sodium 145, Potassium 4.3, BUN 35 H, Creatinine 0.46 L, Glucose 353 H, Magnesium 2.2, Total Bilirubin 0.4, AST 34, ALT 52, Alkaline Phosphatase 133 H 01/17/21 04:35: WBC 12.20 H D, Hgb 11.2 L, Hct 34.3 L, Plt Count 206 Medications List Reviewed: Yes Assessment & Plan - Problems (Diagnosis) (1) Pneumonia due to COVID-19 virus Current Visit: Yes Status: Acute Plan: Respiratory failure no change the patient is now DNR patient is very hypoxic on 100% FiO2 family considering withdrawal of care labs reviewed no change in chest x-ray CVA valenzuela virus infection Physician Review: Patient Assessed, Agree with Above Assessment and Plan
[2021-01-17] MEDS: RIVAROXABAN 20 MG TABLET PO SCH (17:29)
[2021-01-17] MEDS ORDERED: INSULIN GLARGINE 100 UNITS/ML SQ SCH (21:00)
[2021-01-17] MEDS: LORazepam 2 MG/ML VIAL IV PRN (21:06)
[2021-01-18] MEDS: INSULIN -REGULAR HUMAN 50 UNIT/0.5 ML ML SQ SCH ×4 (00:05→18:05)
[2021-01-18] MEDS: HYDROMORPHONE HCL 2 MG/ML inj IV PRN ×4 (01:52→20:44)
[2021-01-18] MEDS: LORazepam 2 MG/ML VIAL IV PRN ×4 (01:52→20:45)
[2021-01-18 05:27] LABS: Absolute Lymphocytes (CBC) 0.8 K/uL (0.7-4.9); Basophils % 0.3 % (0-1.3); Hematocrit 35.3 % (36.0-45.0); Lymphocytes % 7.2 % (15.3-44.8); MPV 10.3 fL (7.6-11.3); RBC Red Blood Cell Count 4.01 M/uL (3.86-4.86)
[2021-01-18 05:37] LABS: BUN Blood Urea Nitrogen 42 mg/dL (7-18); Bicarbonate 36 mmol/L (21-32); Ferritin 1149.8 ng/mL (8-388); Glucose Level 398 mg/dL (74-106); Magnesium 2.2 mg/dL (1.8-2.4); Phosphorus 2.6 mg/dL (2.5-4.9); Sodium Level 147 mmol/L (136-145)
--- NOTE | 2021-01-18 06:15 | P.PN ---
Subjective Date of Service: 01/18/21 Chief Complaint: Respiratory failure from coronavirus Subjective: Other (No new changes. Patient remains on ventilator.) Physical Examination - Vital Signs Temperature: 98.2 F Blood Pressure: 137/86 Pulse: 130 Respirations: 24 Pulse Ox (%): 85 - Studies Laboratory Data (last 24 hrs) 01/18/21 04:50: Sodium 147 H, Potassium 4.0, BUN 42 H, Creatinine 0.52 L, Glucose 398 H, Phosphorus 2.6, Magnesium 2.2 01/18/21 04:50: WBC 11.50 H, Hgb 11.4 L, Hct 35.3 L, Plt Count 220 Medications List Reviewed: Yes Assessment & Plan Discharge Plan: Home Plan to discharge in: Greater than 2 days Physician Review Additional Text: COVID: positive CXR: COMPARISON: No comparisons FINDINGS: Portable technique limits examination quality. Moderately severe bilateral airspace opacities are present, greater on the right, most compatible with underlying COVID-19 infection. The heart is normal in size. No displaced fractures. Follow up CXR 01/16/2021: COMPARISON: Chest Single View dated 01/15/2021; Chest Single View dated 01/13/2021; Chest Single View dated 01/12/2021; Chest Single View dated 01/11/2021 FINDINGS: Portable technique limits examination quality. Tip of the endotracheal tube is at the level of the superior aortic arch. Bilateral pulmonary opacities are present, greater on the left, mildly worsened since comparative study. Enteric tube descends into the upper abdomen.Left-sided PICC line has tip the SVC. Physical Exam: GENERAL: Patient remains on the ventilator. Patient sedated. VITAL SIGNS: Reviewed HEENT: Neck supple LUNGS: Patient on ventilator 100% FiO2. HEART: Sinus tachycardia noted rate around 110-120 ABDOMEN: Soft, nontender, and nondistended. Positive bowel sounds. No hepatosplenomegaly was noted. EXTREMITIES: Without any cyanosis, clubbing, rash, lesions or peripheral edema. NEUROLOGIC: Patient remains on ventilator SKIN: Normal color, turgor and temperature. No ulcerations or rashes noted. Impression: Acute respiratory failure secondary to bilateral Covid pneumonia Hypertension Hyperlipidemia Depression with anxiety Chronic pain GERD Diabetes mellitus type 2 Leukocytosis Plan: Acute respiratory failure secondary to bilateral Covid pneumonia: No significant improvement noted. No changes noted. Patient remains on the ventilator at 100% FiO2. Patient on maximum therapy. Patient requires IV Versed drip due to agitation. Patient with poor prognosis. We discussed advance directives with son. Patient remains DO NOT RESUSCITATE. Family is considering withdrawal of care within the next 48 hours. Several family members still would like to visit with patient before final decision on withdrawal of care is made likely tomorrow. Discussed with pulmonology who agrees with plan. Hypertension: Continue to monitor blood pressure. If elevated will consider adding medication. Hyperlipidemia: No longer on statin medication Depression with anxiety: As needed medication provided. Chronic pain: As needed medication provided. GERD: Currently on Pepcid Diabetes mellitus type 2: Continue Lantus. Will adjust accordingly. Leukocytosis: No longer on antibiotic or antifungal medication. Code Status: Patient remains DO NOT RESUSCITATE. DVT prophylaxis: Xarelto Advanced Care Planning-30 minutes: Case discussed at length with son. Patient remains DO NOT RESUSCITATE. Son reports family has discussed in detail about plan of care. Plan is to withdrawal care likely in the next 48 hours. Time Spent Managing Pts Care (In Minutes): 55
[2021-01-18 06:25] VITALS: BMI 29.7
--- NOTE | 2021-01-18 07:56 | RAD REPORT ---
EXAM DESCRIPTION: [facility] Single View01/18/2021 5:58 am CLINICAL HISTORY: Chest pain COMPARISON: January 17, 2021 FINDINGS: Mild improvement in left pulmonary opacities. Mild worsening probably right upper lobe pul monary opacities. Heart is normal size. Endotracheal tube overlies the aortic arch. Feeding tube enters the stomach. The tip is not included in field of view. PICC line place IMPRESSION: Mild improvement in left and mild worsening in right pulmonary opacities probably pneum onia
[2021-01-18] MEDS: MIDAZOLAM HCL 100 MG in NA CHLORIDE 0.9% 80 ML IV SCH ×2 (08:47→18:30)
[2021-01-18] MEDS: FUROSEMIDE 20 MG/ 2ML VIAL IV SCH (08:48)
[2021-01-18] MEDS: FAMOTIDINE 20 MG TAB PO SCH ×2 (08:49→20:45)
[2021-01-18] MEDS: ASPIRIN 81 MG CHEWABLE TABLET PO SCH (08:49)
[2021-01-18] MEDS: THIAMINE HCL 100 MG TABLET PO SCH (08:49)
[2021-01-18] MEDS: dexAMETHasone 10 MG/ML VIAL IV SCH ×2 (08:49→20:44)
[2021-01-18] MEDS: RIVAROXABAN 20 MG TABLET PO SCH (18:06)
[2021-01-18] MEDS: VITAL HP 1,000 ML BOT RTH SCH (19:00)
[2021-01-18] MEDS ORDERED: INSULIN GLARGINE 100 UNITS/ML SQ SCH (21:00)
[2021-01-18 22:04] VITALS: TEMP 97.6
--- NOTE | 2021-01-18 23:03 | P.DS ---
Admission Date: 12/17/20 Discharge Date: 01/18/21 Disposition: Discharge Condition: Reason for Admission: Respiratory failure from coronavirus Consultations: Pulflex, Dr. Mazariegos Procedures: COMPARISON: No comparisons FINDINGS: Portable technique limits examination quality. Moderately severe bilateral airspace opacities are present, greater on the right, most compatible with underlying COVID-19 infection. The heart is normal in size. No displaced fractures. Follow up CXR 01/16/2021: COMPARISON: Chest Single View dated 01/15/2021; Chest Single View dated 01/13/2021; Chest Single View dated 01/12/2021; Chest Single View dated 01/11/2021 FINDINGS: Portable technique limits examination quality. Tip of the endotracheal tube is at the level of the superior aortic arch. Bilateral pulmonary opacities are present, greater on the left, mildly worsened since comparative study. Enteric tube descends into the upper abdomen.Left-sided PICC line has tip the SVC. Impression: Acute respiratory failure secondary to bilateral Covid pneumonia Hypertension Hyperlipidemia Depression with anxiety Chronic pain GERD Diabetes mellitus type 2 Leukocytosis Brief History of Present Illness: He was admitted with COVID-19 pneumonia on 12/17/2020 Hospital Course: Patient had prolonged hospitalization with severe COVID-19 pneumonia, required intubation on 01/04/2021 and progressively got worse. For the past 2 days patient saturations have maintained in the high 70s to low 80s, patient's family were brought in and elected to make patient DNR with plan to withdraw care tomorrow morning, throughout the evening patient's blood pressure began dropping, family were at bedside discussed case at length with them elected to hold off on use of vasopressor therapy. Patient peacefully at 2224 on 01/18/2021. Vital Signs/Physical Exam: Temp Pulse Resp BP Pulse Ox 97.6 F 122 H 26 H 76/49 L 80 L 01/18/21 20:00 01/18/21 21:00 01/18/21 21:00 01/18/21 21:00 01/18/21 21:00 General: Unresponsive HEENT: Other (Pupils fixed and dilated) Cardiovascular: Other (No heart sounds, no palpable pulses) Laboratory Data at Discharge: WBC 11.50 K/uL (4.3-10.9) H 01/18/21 04:50 Hgb 11.4 g/dL (12.0-15.0) L 01/18/21 04:50 Hct 35.3 % (36.0-45.0) L 01/18/21 04:50 Plt Count 220 K/uL (152-406) 01/18/21 04:50 Sodium 147 mmol/L (136-145) H 01/18/21 04:50 Potassium 4.0 mmol/L (3.5-5.1) 01/18/21 04:50 BUN 42 mg/dL (7-18) H 01/18/21 04:50 Creatinine 0.52 mg/dL (0.55-1.3) L 01/18/21 04:50 Glucose 398 mg/dL (74-106) H 01/18/21 04:50 Phosphorus 2.6 mg/dL (2.5-4.9) 01/18/21 04:50 Magnesium 2.2 mg/dL (1.8-2.4) 01/18/21 04:50 Total Bilirubin 0.4 mg/dL (0.2-1.0) 01/17/21 04:35 AST 34 U/L (15-37) 01/17/21 04:35 ALT 52 U/L (12-78) 01/17/21 04:35 Alkaline Phosphatase 133 U/L (45-117) H 01/17/21 04:35 Home Medications: Amitriptyline HCl 75 mg PO BEDTIME 12/17/20 Aspirin [Adult Low Dose Aspirin EC] 81 mg PO DAILY 12/17/20 Atorvastatin Calcium [Lipitor] 40 mg PO BEDTIME 12/17/20 Citalopram [Celexa] 20 mg PO DAILY 12/17/20 Furosemide [Lasix] 20 mg PO DAILY 12/17/20 Gabapentin 300 mg PO TID 12/17/20 Magnesium Oxide [Mag 0X Tab] 400 mg PO DAILY 12/17/20 Omeprazole [Prilosec] 40 mg PO DAILY 12/17/20 Verapamil HCl [Calan] 80 mg PO DAILY 12/17/20 Physician Discharge Instructions: Rest in peace Time spent managing pt's care (in minutes): 25
[2021-01-18 23:09] VITALS: O2SAT 80
[2021-01-19] MEDS ORDERED: INSULIN -REGULAR HUMAN 50 UNIT/0.5 ML ML SQ SCH
[2021-01-19 00:15] VITALS: BP 51/35
== END 2021-01-19 03:10 | disposition expired | DRG 207 ==
LOC: 4TH 20:05 → 3RD-ICU 01-04 12:10
PROVIDERS: ADMIT Physician Assistant; ATTEND Family Medicine
PROC: XW0DXM6 Introduction of Baricitinib into Mouth and Pharynx, External Approach, New Technology Group 6 (ICD-10-PCS; 2020-12-24)
PROC: 5A1955Z Respiratory Ventilation, Greater than 96 Consecutive Hours (ICD-10-PCS; principal; 2021-01-04)
PROC: 0BH17EZ Insertion of Endotracheal Airway into Trachea, Via Natural or Artificial Opening (ICD-10-PCS; 2021-01-04)
PROC: 5A09557 Assistance with Respiratory Ventilation, Greater than 96 Consecutive Hours, Continuous Positive Airway Pressure (ICD-10-PCS; 2021-01-04)
PROC: 02HV33Z Insertion of Infusion Device into Superior Vena Cava, Percutaneous Approach (ICD-10-PCS; 2021-01-11)
DX: U07.1 COVID-19 (principal); J12.82 Pneumonia due to coronavirus disease 2019; J96.01 Acute respiratory failure with hypoxia; E44.0 Moderate protein-calorie malnutrition; E78.5 Hyperlipidemia, unspecified; I10 Essential (primary) hypertension; G89.29 Other chronic pain; K21.9 Gastro-esophageal reflux disease without esophagitis; Z66 Do not resuscitate; D72.829 Elevated white blood cell count, unspecified; F41.8 Other specified anxiety disorders; Z68.33 Body mass index [BMI] 33.0-33.9, adult; Z78.1 Physical restraint status; Z88.5 Allergy status to narcotic agent; Z88.8 Allergy status to other drugs, medicaments and biological substances; Z79.82 Long term (current) use of aspirin; Z79.899 Other long term (current) drug therapy; Z86.73 Personal history of transient ischemic attack (TIA), and cerebral infarction without residual deficits; Z90.710 Acquired absence of both cervix and uterus; Z90.49 Acquired absence of other specified parts of digestive tract; Z23 Encounter for immunization
CPT/HCPCS: 36415; 36569; 71045; 74018; 80048; 80053; 82728; 82805; 82947; 83735; 83880; 84100; 84132; 84145; 85025; 85027; 86140; 87040; 87070; 87205; 93005; 94002; 94003; 94010; 94660; 94760; 97110; 97161; 97530; C9113; J0330; J0692; J0696; J1100; J1170; J1630; J1650; J1815; J1940; J2250; J2405; J2920; J2930; J3010; J3480; J7030; J7050; J8540